=== PATIENT | male | born 1960 | race Caucasian/White ===

== ENCOUNTER 2017-05-08 18:00 | Emergency (ER) | payer SELFPAY ==
[~2017-05-08] VITALS: Ht 182.9 cm; Wt 78.0 kg
[2017-05-08 18:05] VITALS: BP 116/61; PULSE 85; RESP 16; TEMP 98.4; O2SAT 99
[2017-05-08] MEDS ORDERED: SODIUM CHLOR 0.9% 1000 ML INJ 1,000 ML IV SCH (18:42)
[2017-05-08] MEDS ORDERED: SODIUM CHLORIDE 0.9% FLUSH 10 ML FLUSH IV FLUSH PRN (18:45)
[2017-05-08 19:10] VITALS: BP 109/77; PULSE 75; RESP 14; O2SAT 99
--- NOTE | 2017-05-08 19:16 | PD ---
HPI Chief Complaint: Skin Problem Time Seen by Provider: 18:35 Travel History International Travel<30 days: No Contact w/Intl Traveler<30days: No Traveled to known affect area: No History of Present Illness HPI Patient is a 56-year-old alcoholic, presents to emergency room complaints of "purple toes" and pain for the past 1.5 years. Reports that he noticed that his toes on his right foot appeared black and purple. Reports that "i think it' s getting worse." Reports that he has a friend who lost some toes and "i just don't want that to happen to me." Reports that digits #2 on his right foot appear more "purple" than the other toes. He does have an ulceration to that digit. Patient reports that he has not followed-up with a primary care doctor for this as he doesn't have one. Patient denies any medical history, reports no history of hypertension or diabetes or coronary artery disease. Patient reports that he is an alcoholic, denies drug abuse. Last drink was 2 hours prior to arrival to emergency room. [facility] Past Medical History Medical History: Denies Significant Hx Past Surgical History Surgical History: No Previous Surgery Social History Alcohol Use: Yes Tobacco Use: Yes Substance Use: No Allergies-Medications (Allergen,Severity, Reaction): Coded Allergies: No Known Allergies (Unverified , 05/08/17) Reported Meds & Prescriptions Reported Meds & Active Scripts Active Bactroban Topical (Mupirocin) 22 Gm Cream 1 Applic TOPICAL BID Review of Systems General / Constitutional: No: Fever Eyes: No: Visual changes HENT: No: Headaches Cardiovascular: No: Chest Pain or Discomfort Respiratory: No: Shortness of Breath Gastrointestinal: No: Abdominal Pain Genitourinary: No: Dysuria Musculoskeletal: Positive: Pain (pain to right toes) Skin: No Rash Neurologic: No: Weakness Psychiatric: No: Depression Endocrine: No: Polydipsia Hematologic/Lymphatic: No: Easy Bruising Physical Exam Narrative GENERAL: NAD, nontoxic SKIN: Focused skin assessment warm/dry. HEAD: Atraumatic. Normocephalic. EYES: Pupils equal and round. No scleral icterus. No injection or drainage. ENT: No nasal bleeding or discharge. Mucous membranes pink and moist. NECK: Trachea midline. No JVD. CARDIOVASCULAR: Regular rate and rhythm. No murmur appreciated. RESPIRATORY: No accessory muscle use. Clear to auscultation. Breath sounds equal bilaterally. GASTROINTESTINAL: Abdomen soft, non-tender, nondistended. Hepatic and splenic margins not palpable. MUSCULOSKELETAL: No obvious deformities. No clubbing. No cyanosis. No edema Right foot: patient with healing ulceration to digit #2, pulses intact, neurovascularly intact, good rom to all digits, good capillary refill, patient does not appear to have necrotic toes Left foot: Patient with no obvious fractures, patient with good range of motion to all digits as well as ankle, good capillary refill, pulses intact, neurovascularly intact,no evidence of purple or black toes, no signs of necrotic digits NEUROLOGICAL: Awake and alert. No obvious cranial nerve deficits. Motor grossly within normal limits. Normal speech. PSYCHIATRIC: Appropriate mood and affect; insight and judgment normal. Data Data Last Documented VS Vital Signs Date Time Temp Pulse Resp B/P Pulse Ox O2 Delivery O2 Flow Rate FiO2 05/08/17 21:50 71 14 115/85 97 Room Air 05/08/17 18:05 98.4 Orders Complete Blood Count With Diff (05/08/17 18:42) Comprehensive Metabolic Panel (05/08/17 18:42) Prothrombin Time / Inr (Pt) (05/08/17 18:42) Act Partial Throm Time (Ptt) (05/08/17 18:42) Iv Access Insert/Monitor (05/08/17 18:42) Ecg Monitoring (05/08/17 18:42) Oximetry (05/08/17 18:42) Sodium Chlor 0.9% 1000 Ml Inj (Ns 1000 M (05/08/17 18:42) Sodium Chloride 0.9% Flush (Ns Flush) (05/08/17 18:45) Cta Runoff W Iv Contrast W 3d (05/08/17 ) Drug Screen, Random Urine (05/08/17 18:42) Alcohol (Ethanol) (05/08/17 18:42) Foot, Complete ([id number]) (05/08/17 ) Foot, Complete ([id number]) (05/08/17 ) Mandatory Outpatient Referral (05/08/17 20:45) Mandatory Outpatient Referral (05/08/17 20:45) Iohexol 350 Inj (Omnipaque 350 Inj) (05/08/17 21:07) Labs Laboratory Tests Test 05/08/17 05/08/17 19:20 21:20 White Blood Count 5.9 TH/MM3 Red Blood Count 3.84 MIL/MM3 Hemoglobin 11.8 GM/DL Hematocrit 34.8 % Mean Corpuscular Volume 90.9 FL Mean Corpuscular Hemoglobin 30.6 PG Mean Corpuscular Hemoglobin 33.7 % Concent Red Cell Distribution Width 16.1 % Platelet Count 306 TH/MM3 Mean Platelet Volume 7.0 FL Neutrophils (%) (Auto) 51.9 % Lymphocytes (%) (Auto) 33.2 % Monocytes (%) (Auto) 10.3 % Eosinophils (%) (Auto) 4.0 % Basophils (%) (Auto) 0.6 % Neutrophils # (Auto) 3.1 TH/MM3 Lymphocytes # (Auto) 2.0 TH/MM3 Monocytes # (Auto) 0.6 TH/MM3 Eosinophils # (Auto) 0.2 TH/MM3 Basophils # (Auto) 0.0 TH/MM3 CBC Comment DIFF FINAL Differential Comment Prothrombin Time 10.7 SEC Prothromb Time International 1.0 RATIO Ratio Activated Partial 29.2 SEC Thromboplast Time Sodium Level 144 MEQ/L Potassium Level 3.9 MEQ/L Chloride Level 110 MEQ/L Carbon Dioxide Level 28.1 MEQ/L Anion Gap 6 MEQ/L Blood Urea Nitrogen 6 MG/DL Creatinine 0.84 MG/DL Estimat Glomerular Filtration 95 ML/MIN Rate Random Glucose 84 MG/DL Calcium Level 8.3 MG/DL Total Bilirubin 0.2 MG/DL Aspartate Amino Transf 60 U/L (AST/SGOT) Alanine Aminotransferase 51 U/L (ALT/SGPT) Alkaline Phosphatase 146 U/L Total Protein 8.0 GM/DL Albumin 3.4 GM/DL Ethyl Alcohol Level 289 MG/DL Urine Opiates Screen NEG Urine Barbiturates Screen NEG Urine Amphetamines Screen NEG Urine Benzodiazepines Screen POS Urine Cocaine Screen NEG Urine Cannabinoids Screen NEG MDM Medical Decision Making Medical Screen Exam Complete: Yes Emergency Medical Condition: Yes Interpretation(s) Vital Signs Date Time Temp Pulse Resp B/P Pulse Ox O2 Delivery O2 Flow Rate FiO2 05/08/17 18:05 98.4 85 16 116/61 99 Differential Diagnosis Differential includes alcoholism, cellulitis, arterial insufficiency, osteomyelitis Narrative Course 56-year-old male who presents to emergency room for evaluation of possible purple and black toes. Patient reports that his right toes have appeared purple and black for the past 1.5 years, reports concerns as he does not want to lose any digits. He does not have any medical problems and has not seen a physician in years. On evaluation, patient is intoxicated. He does have good pulses to bilateral lower extremities, his does not appear purple or black, they appear to have good capillary refills with no obvious signs of necrosis. Plan to obtain basic labs and order CTA Lower extremities to evaluate for arterial insufficiency. Ultimately, patient understands need to follow-up with his primary care doctor X-ray of the right foot shows a possible osteolytic lesion in the medial tarsus Navicular - i gave patient a copy of his xray report and discussed concerns as he will need this evaluated as an outpatient. Mandatory referral to podiatry as well as general medicine ordered Laboratory Tests Test 05/08/17 19:20 White Blood Count 5.9 TH/MM3 (4.0-11.0) Red Blood Count 3.84 MIL/MM3 (4.50-5.90) Hemoglobin 11.8 GM/DL (13.0-17.0) Hematocrit 34.8 % (39.0-51.0) Mean Corpuscular Volume 90.9 FL (80.0-100.0) Mean Corpuscular Hemoglobin 30.6 PG (27.0-34.0) Mean Corpuscular Hemoglobin 33.7 % Concent (32.0-36.0) Red Cell Distribution Width 16.1 % (11.6-17.2) Platelet Count 306 TH/MM3 (150-450) Mean Platelet Volume 7.0 FL (7.0-11.0) Neutrophils (%) (Auto) 51.9 % (16.0-70.0) Lymphocytes (%) (Auto) 33.2 % (9.0-44.0) Monocytes (%) (Auto) 10.3 % (0.0-8.0) Eosinophils (%) (Auto) 4.0 % (0.0-4.0) Basophils (%) (Auto) 0.6 % (0.0-2.0) Neutrophils # (Auto) 3.1 TH/MM3 (1.8-7.7) Lymphocytes # (Auto) 2.0 TH/MM3 (1.0-4.8) Monocytes # (Auto) 0.6 TH/MM3 (0-0.9) Eosinophils # (Auto) 0.2 TH/MM3 (0-0.4) Basophils # (Auto) 0.0 TH/MM3 (0-0.2) CBC Comment DIFF FINAL Differential Comment Prothrombin Time 10.7 SEC (9.8-11.6) Prothromb Time International 1.0 RATIO Ratio Activated Partial 29.2 SEC Thromboplast Time (24.3-30.1) Sodium Level 144 MEQ/L (136-145) Potassium Level 3.9 MEQ/L (3.5-5.1) Chloride Level 110 MEQ/L (98-107) Carbon Dioxide Level 28.1 MEQ/L (21.0-32.0) Anion Gap 6 MEQ/L (5-15) Blood Urea Nitrogen 6 MG/DL (7-18) Creatinine 0.84 MG/DL (0.60-1.30) Estimat Glomerular Filtration 95 ML/MIN (>89) Rate Random Glucose 84 MG/DL (74-106) Calcium Level 8.3 MG/DL (8.5-10.1) Total Bilirubin 0.2 MG/DL (0.2-1.0) Aspartate Amino Transf 60 U/L (15-37) (AST/SGOT) Alanine Aminotransferase 51 U/L (12-78) (ALT/SGPT) Alkaline Phosphatase 146 U/L (45-117) Total Protein 8.0 GM/DL (6.4-8.2) Albumin 3.4 GM/DL (3.4-5.0) Ethyl Alcohol Level 289 MG/DL (0-5) Last Impressions Foot X-Ray 05/08/17 0000 Signed Impressions: Service Date/Time: Monday, May 08, 2017 18:50 - CONCLUSION: 1. No evidence of recent bone injury. 2. Possible osteolytic lesion in the medial tarsus navicular. Recommend clinical correlation for possible history of cancer. Armen Youngblood MD Foot X-Ray 05/08/17 0000 Signed Impressions: Service Date/Time: Monday, May 08, 2017 18:53 - CONCLUSION: Negative exam. Armen Youngblood MD Last Impressions Foot X-Ray 05/08/17 0000 Signed Impressions: Service Date/Time: Monday, May 08, 2017 18:50 - CONCLUSION: 1. No evidence of recent bone injury. 2. Possible osteolytic lesion in the medial tarsus navicular. Recommend clinical correlation for possible history of cancer. Armen Youngblood MD Foot X-Ray 05/08/17 0000 Signed Impressions: Service Date/Time: Monday, May 08, 2017 18:53 - CONCLUSION: Negative exam. Armen Youngblood MD Aorta w/Runoff CTA 05/08/17 0000 Signed Impressions: Service Date/Time: Monday, May 08, 2017 20:43 - CONCLUSION: Normal CTA runoff. Armen Youngblood MD CTA normal. Patient with toe ulceration with no signs of arterial or vascular compromise. Plan to start patient on Bactroban ointment, patient will need to follow up with his primary care doctor as well as podiatry as there is concerns for possible osteolytic lesion to his medial tarsus navicular bone. He will return to ER if symptoms worsen or progress Diagnosis Primary Impression: Osteolytic lesion Additional Impressions: Alcohol intoxication Qualified Code: F10.920 - Alcohol intoxication, uncomplicated Anemia Qualified Code: D64.9 - Anemia, unspecified type Toe ulcer Qualified Code: L97.519 - Toe ulcer, right, with unspecified severity Patient Instructions: General Instructions Additional Instructions: Please provide patient with a copy of his lab work and studies at discharge Your xray of your right foot showed a possible osteolytic lesion in the medial tarsus navicular bone. This is concerning for possible cancerous versus infection lesion and it will need workup by your primary care doctor immediately. Please bring a copy of your studies to your doctor's office. A mandatory referral was placed for follow up with podiatry as well as for a primary care doctor. Return to ER as needed Please drink responsibly Scripts Mupirocin Topical (Bactroban Topical)22 Gm Cream1 Applic TOPICAL BID #1 TUBE Ref 0 Prov:Cait Peguero DO 05/08/17 Disposition: 01 DISCHARGE HOME Condition: Stable Cait Peguero DO May 08, 2017 19:16
[2017-05-08 19:34] LABS: AUTOMATED NEUTROPHIL # 3.1 TH/MM3 (1.8-7.7); BASOPHIL % 0.6 % (0.0-2.0); EOSINOPHIL # 0.2 TH/MM3 (0-0.4); HEMATOCRIT 34.8 % (39.0-51.0); HEMO FLAGS DIFF FINAL; LYMPH % 33.2 % (9.0-44.0); MEAN CELL VOLUME 90.9 FL (80.0-100.0); MEAN CORPUSCULAR HEMOGLOBIN 30.6 PG (27.0-34.0); MEAN CORPUSCULAR HGB CONC 33.7 % (32.0-36.0); MONO % 10.3 % (0.0-8.0); NEUT % 51.9 % (16.0-70.0); PLATELET COUNT 306 TH/MM3 (150-450); RED BLOOD COUNT 3.84 MIL/MM3 (4.50-5.90); RED CELL DISTRIBUTION WIDTH 16.1 % (11.6-17.2); WHITE BLOOD COUNT 5.9 TH/MM3 (4.0-11.0)
[2017-05-08 19:46] LABS: CHLORIDE 110 MEQ/L (98-107); POTASSIUM 3.9 MEQ/L (3.5-5.1); SODIUM (NA) 144 MEQ/L (136-145)
[2017-05-08 19:49] LABS: ANION GAP 6 MEQ/L (5-15); BICARBONATE 28.1 MEQ/L (21.0-32.0)
[2017-05-08 19:50] LABS: BLOOD UREA NITROGEN 6 MG/DL (7-18)
[2017-05-08 19:51] LABS: APTT (PATIENT) 29.2 SEC (24.3-30.1); PROTHROMBIN TIME - PATIENT 10.7 SEC (9.8-11.6)
[2017-05-08 19:52] LABS: ALT (GPT) 51 U/L (12-78); AST (GOT) 60 U/L (15-37); GLOMERULAR FILTRATION RATE 95 ML/MIN (>89)
[2017-05-08 19:54] LABS: TOTAL BILIRUBIN ADULT 0.2 MG/DL (0.2-1.0)
[2017-05-08 19:55] LABS: ALKALINE PHOSPHATASE 146 U/L (45-117)
--- NOTE | 2017-05-08 19:55 | RADRPT ---
EXAM DATE/TIME: 05/08/2017 18:50 [facility] COMPARISON: FOOT LEFT COMPLETE ([id number]), May 08, 2017, 18:53. INDICATIONS : Right foot pain from unknown injury. MEDICAL HISTORY : None. SURGICAL HISTORY : None. ENCOUNTER: Initial ACUITY: 1 month PAIN SCORE: 10/10 LOCATION: Right foot. FINDINGS: Three view examination of the right foot demonstrates no soft tissue swelling, dislocation, or fractu re. The tarsal bones appear intact. The interphalangeal and metatarsophalangeal joints are intact. The calcaneus is intact. There is a 9 mm lytic area in the medial tarsus navicular which is of unc ertain significance. CONCLUSION: 1. No evidence of recent bone injury. 2. Possible osteolytic lesion in the medial tarsus navicular. Recommend clinical correlation for pos sible history of cancer. Armen Youngblood MD on May 08, 2017 at 19:52 Board Certified Radiologist. This report was verified electronically.
--- NOTE | 2017-05-08 19:56 | RADRPT ---
EXAM DATE/TIME: 05/08/2017 18:53 [facility] COMPARISON: No previous studies available for comparison. INDICATIONS : Left foot pain from unknown injury. MEDICAL HISTORY : None. SURGICAL HISTORY : None. ENCOUNTER: Initial ACUITY: 1 month PAIN SCORE: 10/10 LOCATION: Left foot FINDINGS: Three view examination of the left foot demonstrates no soft tissue swelling, dislocation, or fractur e. The tarsal bones appear intact. The interphalangeal and metatarsophalangeal joints are intact. The calcaneus is intact. Bony mineralization is normal. CONCLUSION: Negative exam. Armen Youngblood MD on May 08, 2017 at 19:54 Board Certified Radiologist. This report was verified electronically.
[2017-05-08 20:10] VITALS: BP 93/71; PULSE 74; RESP 14; O2SAT 97
[2017-05-08] MEDS ORDERED: IOHEXOL 350 MG/ML 10 ML VIAL (for RAD DIAG) IV ONE (21:07)
[2017-05-08] MEDS ORDERED: MUPI2%T TOPICAL (21:11)
[2017-05-08 21:50] VITALS: BP 115/85; PULSE 71; RESP 14; O2SAT 97
[2017-05-08 22:08] LABS: AMPHETAMINE, URINE NEG (NEG); BARBITURATES, URINE NEG (NEG); COCAINE, URINE NEG (NEG)
--- NOTE | 2017-05-08 22:15 | RADRPT ---
EXAM DATE/TIME: 05/08/2017 20:43 [facility] COMPARISON: No previous studies available for comparison. INDICATIONS : Discoloration of lower extremity digits. IV CONTRAST: 100 cc Omnipaque 350 (iohexol) IV RADIATION DOSE: 11.07 CTDIvol (mGy) MEDICAL HISTORY : None SURGICAL HISTORY : None. ENCOUNTER: Initial ACUITY: >1 yr PAIN SCALE: 10/10 LOCATION: Bilateral lower digits. TECHNIQUE: Volumetric scanning was performed using a multi-row detector CT scanner. The data was post processed with a variety of visualization algorithms including full volume maximum intensity projection, multi -planar sliding thin slab reformation, curved planar reformation, and surface rendering techniques. Using automated exposure control and adjustment of the mA and/or kV according to patient size, radiat ion dose was kept as low as reasonably achievable to obtain optimal diagnostic quality images. DICO M format image data is available electronically for review and comparison. FINDINGS: ABDOMINAL AORTA: The lumen is smooth without significant narrowing or aneurysmal dilation. The proximal celiac and metz perior mesenteric arteries are patent and normal in diameter. There there are 2 renal arteries on th e left side and one on the right without evidence of ostial stenosis. BIFURCATION: Normal. RIGHT PELVIS: The right common iliac, internal iliac, and external iliac vessels are patent without luminal irregul arity. LEFT PELVIS: The left common iliac, internal iliac, and external iliac vessels are patent and without luminal irre gularity. RIGHT THIGH: The superficial femoral and profunda vessels are patent without luminal irregularity. LEFT THIGH: The superficial femoral and profunda vessels are patent without luminal irregularity. RIGHT KNEE: The distal femoral and popliteal arteries are patent without luminal irregularity. LEFT KNEE: The distal femoral and popliteal arteries are patent without luminal irregularity. RIGHT LEG: The trifurcation is intact. LEFT LEG: The trifurcation is intact. CONCLUSION: Normal CTA runoff. Armen Youngblood MD on May 08, 2017 at 22:10 Board Certified Radiologist. This report was verified electronically.
[2017-05-08 23:00] VITALS: BP 125/87; PULSE 72; RESP 14; O2SAT 96
[2017-05-09 01:25] VITALS: BP 110/75; PULSE 80; RESP 14; O2SAT 98
[2017-05-09 05:19] VITALS: BP 112/75; PULSE 74; RESP 18; O2SAT 96
== END 2017-05-09 05:28 | disposition home or self-care (01) ==
LOC: PHED 18:00
DX: M89.571 Osteolysis, right ankle and foot (principal); F10.229 Alcohol dependence with intoxication, unspecified; D64.9 Anemia, unspecified; L97.519 Non-pressure chronic ulcer of other part of right foot with unspecified severity; Y90.8 Blood alcohol level of 240 mg/100 ml or more; Z72.0 Tobacco use
CPT/HCPCS: 73630; 75635; 80053; 80307; 85025; 85610; 85730; 96360; 99285; J7030; Q9967

== ENCOUNTER 2017-05-11 21:32 | Emergency (ER) | payer SELFPAY ==
[~2017-05-11 21:32] MED LIST: MUPI2%T TOPICAL
[2017-05-11 21:40] VITALS: BP 107/63; PULSE 99; RESP 16; TEMP 98.8; O2SAT 94
--- NOTE | 2017-05-12 00:13 | PD ---
HPI Chief Complaint: Pain: Acute or Chronic Time Seen by Provider: 00:07 Travel History International Travel<30 days: No Contact w/Intl Traveler<30days: No Traveled to known affect area: No History of Present Illness HPI Patient is a 56-year-old alcoholic male presents emergency Department initially complaining of right foot pain at triage, though when I evaluate him he complains only of alcohol intoxication. Per chart review patient was seen in our [facility] emergency department recently for right sided foot pain and had evidence of osteolytic lesion seen on x-ray. He was given outpatient mandatory referral for podiatry, he has yet to follow up. Patient denies any foot pain at this time. He states that he's been drinking too much, and would like detox. He has been able to ambulate independently in the emergency department. He denies any other complaints. [facility] Social History Alcohol Use: Yes Tobacco Use: Yes Substance Use: No Allergies-Medications (Allergen,Severity, Reaction): Coded Allergies: No Known Allergies (Unverified , 05/08/17) Reported Meds & Prescriptions Reported Meds & Active Scripts Active Bactroban Topical (Mupirocin) 22 Gm Cream 1 Applic TOPICAL BID Review of Systems ROS Limitations: Intoxication, Poor Historian Physical Exam Exam Limitations: Intoxication, Poor Historian Narrative GENERAL: Disheveled adult male in no acute distress SKIN: Focused skin assessment warm/dry. HEAD: Normocephalic. EYES: No scleral icterus. No injection or drainage. ENT: Mucous membranes pink and moist. NECK: Supple CARDIOVASCULAR: Regular rate and rhythm. RESPIRATORY: No accessory muscle use. MUSCULOSKELETAL: Moves all extremities normally. A 1-2+ edema in the bilateral lower extremities. Right foot with ulceration on the second toe, good capillary refill, normal range of motion. Patient does have tenderness along the first and second metatarsal raise. The left foot is unremarkable without evidence of ulcerations, good capillary refill and distal pulses are present. NEUROLOGICAL: Sleeping. Patient is cantankerous when aroused but awake and alert. Moves all extremities normally. Speech is slightly slurred. PSYCHIATRIC: insight and judgment poor Data Data Last Documented VS Vital Signs Date Time Temp Pulse Resp B/P Pulse Ox O2 Delivery O2 Flow Rate FiO2 05/11/17 21:40 98.8 99 16 107/63 94 Room Air MDM Medical Decision Making Medical Screen Exam Complete: Yes Emergency Medical Condition: Yes Medical Record Reviewed: Yes Differential Diagnosis 56-year-old alcoholic male here with complaint of right foot pain and intoxication. Differential includes malingering, alcohol intoxication, right foot fracture, osteolytic lesion Narrative Course Patient has already had imaging of the foot showing osteolytic lesion and has mandatory referral for podiatry. He was recently referred to podiatry by myself today. Unfortunately we do not have inpatient detox, and patient does not have any evidence of alcohol withdrawal. Instead he appears clinically intoxicated. He was able to ambulate independently in her emergency department , and will be discharged to home. Diagnosis Primary Impression: Alcohol intoxication Qualified Code: F10.920 - Alcoholic intoxication without complication Additional Impressions: Right foot pain Osteolytic lesion Referrals: Fabiana Sánchez DPM call for appointment Fine Arts Chair call for appointment Vero Wynn call for appointment Additional Instructions: Seek outpatient management for your alcoholism. Unfortunately we do not have inpatient detox programs. I recommended follow-up with [facility]. Oh up with cost recorder for outpatient workup of osteolytic lesion in the right foot. This is likely what is causing your pain. Med/Other Pt SpecificInfo: No Change to Meds Disposition: 01 DISCHARGE HOME Condition: Stable Lana Yee MD May 12, 2017 00:13
== END 2017-05-12 00:36 | disposition home or self-care (01) ==
LOC: NEPE 21:32 → NEDAMB 05-12 00:36
DX: F10.920 Alcohol use, unspecified with intoxication, uncomplicated (principal); M79.671 Pain in right foot; M89.571 Osteolysis, right ankle and foot
CPT/HCPCS: 99282

== ENCOUNTER 2017-05-13 21:23 | Emergency (ER) | payer SELFPAY ==
[~2017-05-13] VITALS: Ht 182.9 cm; Wt 85.0 kg
[2017-05-13 21:47] VITALS: BP 120/71; PULSE 86; RESP 20; TEMP 98.2; O2SAT 99
--- NOTE | 2017-05-14 02:05 | PD ---
HPI Chief Complaint: Alcohol/Drug Intoxication Time Seen by Provider: 02:01 Travel History International Travel<30 days: No Contact w/Intl Traveler<30days: No Traveled to known affect area: No History of Present Illness HPI 56-year-old white male alcoholic presents again intoxicated under [place] act. The patient is heavily intoxicated. Significant history is unobtainable at this time. Review of the medical record indicates recent evaluation the ER for the same. There is no history of suicidal or homicidal ideation. No evidence of trauma. [facility] Past Medical History Narrative Medical History of alcoholism, and a right foot osteolytic lesion Tetanus Vaccination: Unknown Past Surgical History Surgical History: Unable to Obtain Social History Alcohol Use: Yes Tobacco Use: Yes Substance Use: No Allergies-Medications (Allergen,Severity, Reaction): Coded Allergies: No Known Allergies (Unverified , 05/13/17) Reported Meds & Prescriptions Reported Meds & Active Scripts Active Bactroban Topical (Mupirocin) 22 Gm Cream 1 Applic TOPICAL BID Review of Systems ROS Limitations: Intoxication Physical Exam Narrative GENERAL: Well-nourished, well-developed patient. Patient appears intoxicated. SKIN: Warm and dry. HEAD: Normocephalic and atraumatic. EYES: No scleral icterus. No injection or drainage. ENT: No nasal drainage noted. Mucous membranes pink. Airway patent. NECK: Supple, trachea midline. Moves head freely without obvious discomfort. CARDIOVASCULAR: Regular rate and rhythm without murmurs, gallops, or rubs. RESPIRATORY: Breath sounds equal bilaterally. No accessory muscle use. GASTROINTESTINAL: Abdomen soft, non-tender, nondistended. EXTREMITIES: No cyanosis +1 pedal edema. Right foot with ulceration on the second toe BACK: Nontender without obvious deformity. No CVA tenderness. NEURO: Patient is alert and oriented. no sensorimotor deficits. Nonfocal. Slurred speech. PSYCH: No delusions. No auditory or visual hallucinations. Data Data Last Documented VS Vital Signs Date Time Temp Pulse Resp B/P Pulse Ox O2 Delivery O2 Flow Rate FiO2 05/14/17 02:25 98.6 70 16 122/82 100 Room Air MDM Medical Decision Making Medical Screen Exam Complete: Yes Emergency Medical Condition: Yes Medical Record Reviewed: Yes Differential Diagnosis Differential diagnoses: Alcohol intoxication, substance abuse, electrolyte abnormality, malingering Narrative Course The patient is intoxicated. He will be allowed to sleep it off here in the ER. Once the patient exhibits sobriety has [place] act will be lifted and the patient will be allowed to leave. This is alcohol intoxication, act Diagnosis Primary Impression: Alcohol intoxication Qualified Code: F10.920 - Alcoholic intoxication without complication Additional Impression: ACT Patient Instructions: General Instructions Additional Instructions: Rest. Increase fluids. Avoid alcohol. Avoid illegal substances. Follow-up with [facility] for detox. Do not operate a car or any heavy machinery under the influence of alcohol or drugs. Follow-up with a medical doctor this week. Return to the ER for emergencies Med/Other Pt SpecificInfo: No Meds Exist/No RX given, Wound Care Disposition: 01 DISCHARGE HOME Condition: Stable Gus Vazquez May 14, 2017 02:05
[2017-05-14 02:25] VITALS: BP 122/82; PULSE 70; RESP 16; TEMP 98.6; O2SAT 100
[2017-05-14] MEDS ORDERED: BACT800T5 PO (05:46)
== END 2017-05-14 06:15 | disposition home or self-care (01) ==
LOC: NEDAMB 21:23
DX: Z02.89 Encounter for other administrative examinations (principal); F10.920 Alcohol use, unspecified with intoxication, uncomplicated; F17.290 Nicotine dependence, other tobacco product, uncomplicated
CPT/HCPCS: 99283

== ENCOUNTER 2017-06-10 03:12 | Emergency (ER) | payer SELFPAY ==
[~2017-06-10] VITALS: Ht 182.9 cm; Wt 82.0 kg
[~2017-06-10 03:12] MED LIST changes: +BACT800T5 PO
[2017-06-10 03:22] VITALS: BP 110/57; PULSE 88; RESP 16; TEMP 97.5; O2SAT 96
--- NOTE | 2017-06-10 04:12 | RADRPT ---
EXAM DATE/TIME: 06/10/2017 04:01 [facility] COMPARISON: FOOT LEFT COMPLETE ([id number]), May 08, 2017, 18:53. INDICATIONS : Inflammation. MEDICAL HISTORY : None. SURGICAL HISTORY : None. ENCOUNTER: Subsequent ACUITY: 2 months PAIN SCORE: 6/10 LOCATION: Bilateral feet FINDINGS: Three view examination of the left foot demonstrates no soft tissue swelling, dislocation, or fractur e. The tarsal bones appear intact. The interphalangeal and metatarsophalangeal joints are intact. The calcaneus is intact. Bony mineralization is normal. 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 CONCLUSION: No acute bony abnormality demonstrated of the left foot. Orion Barrios MD on June 10, 2017 at 4:09 Board Certified Radiologist. This report was verified electronically.
--- NOTE | 2017-06-10 04:13 | RADRPT ---
EXAM DATE/TIME: 06/10/2017 04:01 [facility] COMPARISON: FOOT RIGHT COMPLETE ([id number]), May 08, 2017, 18:50. INDICATIONS : Inflammation. MEDICAL HISTORY : None. SURGICAL HISTORY : None. ENCOUNTER: Subsequent ACUITY: 2 months PAIN SCORE: 6/10 LOCATION: Bilateral feet FINDINGS: Three view examination of the right foot demonstrates no soft tissue swelling, dislocation, or fractu re. The tarsal bones appear intact. The interphalangeal and metatarsophalangeal joints are intact. The calcaneus is intact. Bony mineralization is normal. Tibial sesamoid is bipartite. There is a type I accessory navicular. No radiopaque foreign body. CONCLUSION: No acute radiographic abnormality of the right foot. Orion Barrios MD on June 10, 2017 at 4:11 Board Certified Radiologist. This report was verified electronically.
--- NOTE | 2017-06-10 04:14 | PD ---
HPI Chief Complaint: Skin Problem Time Seen by Provider: 03:33 Travel History International Travel<30 days: No Contact w/Intl Traveler<30days: No Traveled to known affect area: No History of Present Illness HPI The patient is a 57 year old male who presents to the [facility] emergency department with a history of pain in bilateral feet that he reports awakening with this morning. He reports that he recently had a problem with that she works full was falling apart. He reports that he was also wearing a pair socks for greater than a week. When he tried to take his socks off they seem to be stuck to his feet. He denies any trauma to his feet. He reports that when he took his shoes off today he noticed that his toes were red and swollen. The patient denies having any known fevers. The patient reports that he has had numbness to the tops of his feet for the last year and a half, however recently he has noticed that the burning and numbness goes up his legs to his calves. He reports that he hasn't seen for this in the past, however he is unsure of the specific diagnosis. The patient reports that he does drink alcohol daily. He usually drinks at least a sixpack of beer per day. He also reports that he smokes one and a half packs of cigarettes daily. On review of systems otherwise , he denies any worsening cough or congestion, neck pain, chest pain, shortness of breath, abdominal pain, vomiting, diarrhea, urinary symptoms, or other neurologic symptoms. PFSH Past Medical History Narrative Medical The patient's past medical history is significant for alcohol abuse, tobacco abuse, history of an osteolytic lesion of the right foot. Diminished Hearing: No Tetanus Vaccination: Unknown ?: Not Past Surgical History Narrative Surgical The patient's past surgical history is significant for a hernia repair. Abdominal Surgery: Yes (Hernia repair) Social History Alcohol Use: Yes (6 back of beer daily) Tobacco Use: Yes (1-1/2 packs per day) Substance Use: No Allergies-Medications (Allergen,Severity, Reaction): Coded Allergies: No Known Allergies (Unverified , 05/13/17) Reported Meds & Prescriptions Reported Meds & Active Scripts Active Ciclopirox Topical 0.77% Gel 1 Applic TOPICAL BID 30 Days Keflex (Cephalexin) 500 Mg Cap 500 Mg PO Q6H 10 Days Bactrim DS (Sulfamethoxazole-Trimethoprim) 800-160 Mg Tab 1 Tab PO BID Review of Systems Except as stated in HPI: all other systems reviewed are Neg General / Constitutional: No: Fever Eyes: No: Visual changes HENT: No: Headaches Cardiovascular: No: Chest Pain or Discomfort Respiratory: No: Shortness of Breath Gastrointestinal: No: Abdominal Pain Genitourinary: No: Dysuria Musculoskeletal: Positive: Myalgias, Arthralgias, Edema, Pain Skin: No Rash Neurologic: Positive: Paresthesia, No: Weakness, Focal Abnormalities, Change in Mentation, Slurred Speech, Sensory Disturbance Psychiatric: No: Depression Endocrine: No: Polydipsia Hematologic/Lymphatic: No: Easy Bruising Physical Exam Narrative General: The patient is a well-developed well-nourished male, in no acute distress. Head and Neck exam: Head is normocephalic atraumatic. Eyes: EOMI, pupils are equal round and reactive to light. Nose: Midline septum with pink mucous membranes Mouth: Dentition unremarkable. Moist mucus membranes. Posterior oropharynx is not erythematous. No tonsillar hypertrophy. Uvula midline. Airway patent. Neck: No palpable lymphadenopathy. No nuchal rigidity. No thyromegaly. Cardiovascular: Regular rate and rhythm without murmurs, gallops, or rubs. Lungs: Clear to auscultation bilaterally. No wheezes, rhonchi, or rales. Abdomen: Soft, without tenderness to palpation in all 4 quadrants of the abdomen. No guarding, rebound, or rigidity. Normal bowel sounds are audible. No tenderness on palpation of McBurney's point. Extremities: No clubbing, cyanosis, or edema. 2+ pulses in all 4 extremities. No calf tenderness on palpation. The patient has a strong foot odor noted. The patient has maceration to the soles of his feet related to chronic moisture, erythema to the toes with some superficial skin breakdown between the toes. The patient has dirt on his feet. Less than 3 second capillary refill. The patient has discoloration of his toenails. Patient has no necrosis noted of his toes. The patient appears to have dirt underneath his toenails with older appearing subungual hematoma. Back: No costovertebral angle tenderness to palpation. Neurologic Exam: Cranial nerves 2-12 were intact on exam. Strength is 5/5 in all 4 extremities. No sensory deficits noted. Skin Exam: No other rashes noted. Data Data Last Documented VS Vital Signs Date Time Temp Pulse Resp B/P (MAP) Pulse Ox O2 Delivery O2 Flow Rate FiO2 06/10/17 03:22 97.5 88 16 110/57 (74) 96 Orders Orders Complete Blood Count With Diff (06/10/17 03:33) Comprehensive Metabolic Panel (06/10/17 03:33) C-Reactive Protein (Crp) (06/10/17 03:33) Magnesium (Mg) (06/10/17 03:33) Thyroid Stimulating Hormone (06/10/17 03:33) Iv Access Insert/Monitor (06/10/17 03:33) Ecg Monitoring (06/10/17 03:33) Oximetry (06/10/17 03:33) Wound Care (06/10/17 03:33) Foot, Complete ([id number]) (06/10/17 03:33) Foot, Complete (Roy4low) (06/10/17 03:33) Cefazolin 2 Gm Premix (Ancef 2 Gm Premix (06/10/17 04:15) [id number] (Booster) Inj (Boostrix (06/10/17 04:15) Sodium Chlorid 0.9% 500 Ml Inj (Ns 500 M (06/10/17 04:15) Labs Laboratory Tests Test 06/10/17 04:30 White Blood Count 5.6 TH/MM3 Red Blood Count 4.16 MIL/MM3 Hemoglobin 12.8 GM/DL Hematocrit 38.3 % Mean Corpuscular Volume 92.2 FL Mean Corpuscular Hemoglobin 30.8 PG Mean Corpuscular Hemoglobin Concent 33.4 % Red Cell Distribution Width 15.9 % Platelet Count 256 TH/MM3 Mean Platelet Volume 7.2 FL Neutrophils (%) (Auto) 44.8 % Lymphocytes (%) (Auto) 31.4 % Monocytes (%) (Auto) 18.8 % Eosinophils (%) (Auto) 3.9 % Basophils (%) (Auto) 1.1 % Neutrophils # (Auto) 2.5 TH/MM3 Lymphocytes # (Auto) 1.8 TH/MM3 Monocytes # (Auto) 1.1 TH/MM3 Eosinophils # (Auto) 0.2 TH/MM3 Basophils # (Auto) 0.1 TH/MM3 CBC Comment DIFF FINAL Differential Comment Blood Urea Nitrogen 17 MG/DL Creatinine 1.22 MG/DL Random Glucose 87 MG/DL Total Protein 7.8 GM/DL Albumin 3.7 GM/DL Calcium Level 8.6 MG/DL Magnesium Level 2.2 MG/DL Alkaline Phosphatase 107 U/L Aspartate Amino Transf (AST/SGOT) 46 U/L Alanine Aminotransferase (ALT/SGPT) 53 U/L Total Bilirubin 0.5 MG/DL Sodium Level 138 MEQ/L Potassium Level 3.5 MEQ/L Chloride Level 104 MEQ/L Carbon Dioxide Level 24.3 MEQ/L Anion Gap 10 MEQ/L Estimat Glomerular Filtration Rate 62 ML/MIN C-Reactive Protein 0.32 MG/DL Thyroid Stimulating Hormone 3rd Gen 2.810 uIU/ML MDM Medical Decision Making Medical Screen Exam Complete: Yes Emergency Medical Condition: Yes Medical Record Reviewed: Yes Interpretation(s) Last Impressions Foot X-Ray 06/10/17332 Signed Impressions: Service Date/Time: Saturday, June 10, 2017 04:01 - CONCLUSION: No acute radiographic abnormality of the right foot. Orion Barrios MD Foot X-Ray 06/10/17332 Signed Impressions: Service Date/Time: Saturday, June 10, 2017 04:01 - CONCLUSION: No acute bony abnormality demonstrated of the left foot. Orion Barrios MD Differential Diagnosis Cellulitis, versus tinea capitis, versus trench foot. Narrative Course During the course of the patients emergency department visit, the patients history, examination, and differential diagnosis were reviewed with the patient. The patient had IV access obtained and blood work sent for analysis. The patient was placed on a international account representative with oximetry and blood pressure monitoring. From reviewing the electronic medical record, the patient has been seen on May 14 and then again on May 12 related to foot pain. The patient had an extensive workup done on May 08 including a CTA with runoff of the lower extremities. The CTA with runoff was unremarkable. Bilateral foot x- rays revealed a negative examination of the left foot, and on examination of the right foot the patient is noted to have an osteolytic lesion in the medial tarsus navicular, recommend clinical correlation for possible history of cancer according to the reading radiologist note. The patient was given a mandatory referral to podiatry. He denies following up at this point. The patient was initially provided an update his tetanus, normal saline a 500 mL bolus, Ancef 2 g IV. Laboratory studies were remarkable for a white count of 5.6, hemoglobin 12.8, platelets 256 with 18.8 monocytes, CMP is remarkable for GFR 62, AST 46, C- reactive protein 0.32, TSH 2.81 Radiology studies were reviewed and remarkable for x-ray of the left foot shows no acute bony abnormality. X-ray of the right foot reveals no acute radiographic abnormality. No evidence of osteomyelitis. The patient will be discharged home with Keflex and Bactrim. The patient also has an apparent underlying component of tinea pedis, therefore the patient was sent home with a topical antifungal. 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 The patient is resting comfortably and feels better, is alert and in no distress. The patients results and examination findings were discussed with the patient. The repeat examination is unremarkable and benign. The history, exam, diagnostic testing, and current condition do not suggest any significant pathology to warrant further testing, continued ED treatment, admission, or surgical evaluation at this point. The vital signs have been stable. The patient does not have uncontrollable pain, intractable vomiting, or other significant symptoms. The patient's condition is stable and appropriate for discharge. The patient will pursue further outpatient evaluation with a primary care physician or other designated or consulting physician as indicated in the discharge instructions. The patient expressed understanding and was agreeable with this plan. Diagnosis Primary Impression: Bilateral foot pain Additional Impressions: Cellulitis Qualified Codes: L03.039 - Cellulitis of unspecified toe Tinea pedis of both feet Referrals: [facility] Patient Assistance Program Primary Care Physician Patient Instructions: Cellulitis (ED), General Instructions, Tinea Corporis (ED ) Additional Instructions: Apply antifungal ointment 2 year feet twice a day. Keep your feet clean and dry. Take oral antibiotic for the entire course. Follow-up with podiatry as previously recommended. Med/Other Pt SpecificInfo: Prescription(s) given Scripts Ciclopirox Topical (Ciclopirox Topical) 0.77% Gel 1 APPLIC TOPICAL BID for FUNGAL INFECTION for 30 Days, #45 GM 0 Refills Prov: Bobbi Cerrato MD 06/10/17 Cephalexin (Keflex) 500 Mg Cap 500 MG PO Q6H for Infection for 10 Days, CAP 0 Refills Prov: Bobbi Cerrato MD 06/10/17 Sulfamethoxazole-Trimethoprim (Bactrim DS) 800-160 Mg Tab 1 TAB PO BID for Infection, #20 TAB Prov: Bobbi Cerrato MD 06/10/17 Disposition: 01 DISCHARGE HOME Condition: Stable Bobbi Cerrato MD Jun 10, 2017 04:14
[2017-06-10] MEDS ORDERED: ceFAZolin 2 GM PREMIX 50 ML IV ONE (04:15)
[2017-06-10] MEDS ORDERED: SODIUM CHLORID 0.9% 500 ML INJ 500 ML IV ONE (04:15)
[2017-06-10] MEDS: DIPHTH/TETANUS/ACEL PERTUSSIS (BOOSTER) 0.5 ML VIAL/PFS IM ONE ×2 (04:15→04:38)
[2017-06-10 05:13] LABS: AUTOMATED NEUTROPHIL # 2.5 TH/MM3 (1.8-7.7); BASOPHIL # 0.1 TH/MM3 (0-0.2); BASOPHIL % 1.1 % (0.0-2.0); EOSINOPHIL # 0.2 TH/MM3 (0-0.4); EOSINOPHIL % 3.9 % (0.0-4.0); HEMATOCRIT 38.3 % (39.0-51.0); HEMO FLAGS DIFF FINAL; LYMPH % 31.4 % (9.0-44.0); LYMPHOCYTE # 1.8 TH/MM3 (1.0-4.8); MEAN CELL VOLUME 92.2 FL (80.0-100.0); MEAN CORPUSCULAR HEMOGLOBIN 30.8 PG (27.0-34.0); MEAN CORPUSCULAR HGB CONC 33.4 % (32.0-36.0); MONO % 18.8 % (0.0-8.0); NEUT % 44.8 % (16.0-70.0); PLATELET COUNT 256 TH/MM3 (150-450); RED BLOOD COUNT 4.16 MIL/MM3 (4.50-5.90); RED CELL DISTRIBUTION WIDTH 15.9 % (11.6-17.2); WHITE BLOOD COUNT 5.6 TH/MM3 (4.0-11.0)
[2017-06-10 05:35] LABS: ALT (GPT) 53 U/L (12-78); ANION GAP 10 MEQ/L (5-15); AST (GOT) 46 U/L (15-37); BICARBONATE 24.3 MEQ/L (21.0-32.0); BLOOD UREA NITROGEN 17 MG/DL (7-18); CHLORIDE 104 MEQ/L (98-107); GLOMERULAR FILTRATION RATE 62 ML/MIN (>89); MAGNESIUM 2.2 MG/DL (1.5-2.5); POTASSIUM 3.5 MEQ/L (3.5-5.1); SODIUM (NA) 138 MEQ/L (136-145)
[2017-06-10 05:46] LABS: ALKALINE PHOSPHATASE 107 U/L (45-117); TOTAL BILIRUBIN ADULT 0.5 MG/DL (0.2-1.0)
[2017-06-10] MEDS ORDERED: BACT800T5 PO (06:00)
[2017-06-10] MEDS ORDERED: CICL0.773 TOPICAL (06:00)
[2017-06-10] MEDS ORDERED: CEPH-460 PO (06:00)
== END 2017-06-10 07:13 | disposition home or self-care (01) ==
LOC: NEPE 03:12
DX: M79.671 Pain in right foot (principal); M79.672 Pain in left foot; B35.3 Tinea pedis; L03.116 Cellulitis of left lower limb; F17.210 Nicotine dependence, cigarettes, uncomplicated; R20.0 Anesthesia of skin; Z23 Encounter for immunization
CPT/HCPCS: 73630; 80053; 83735; 84443; 85025; 86140; 90471; 96365; 99284; J0690; J7040; 90715

== ENCOUNTER 2017-06-16 19:53 | Emergency (ER) | payer SELFPAY ==
[~2017-06-16] VITALS: Ht 182.9 cm; Wt 75.0 kg
[~2017-06-16 19:53] MED LIST changes: +CEPH-460 PO; +CICL0.773 TOPICAL; -MUPI2%T TOPICAL
[2017-06-16 19:58] VITALS: BP 129/106; PULSE 85; RESP 16; TEMP 97.4; O2SAT 100
[2017-06-16] MEDS ORDERED: SODIUM CHLORIDE 0.9% FLUSH 10 ML FLUSH IVF PRN (20:15)
[2017-06-16] MEDS ORDERED: ASPIRIN 325 MG TAB PO ONE (20:15)
--- NOTE | 2017-06-16 20:21 | PD ---
HPI . Chest pain Chief Complaint: Chest Pain Time Seen by Provider: 19:59 Travel History International Travel<30 days: No Contact w/Intl Traveler<30days: No Traveled to known affect area: No History of Present Illness HPI This patient presents to us via [facility] with the chief complaint of chest pain. Onset was just prior to arrival. He states that he was walking home from a bar his chest pain started. He describes the chest pain as an elephant sitting on his chest. He denies any associated symptoms. He states that the symptoms have spontaneously improved. EMS reports that they did not give him any sort of treatment en route such as oxygen, aspirin or nitroglycerin. Patient reports no modifying factors. He states that his pain is severe. PFSH Past Medical History Diminished Hearing: No Past Surgical History Abdominal Surgery: Yes (Hernia repair) Social History Alcohol Use: Yes (6 back of beer daily) Tobacco Use: Yes (1-1/2 packs per day) Substance Use: No Allergies-Medications (Allergen,Severity, Reaction): Coded Allergies: No Known Allergies (Unverified , 06/16/17) Reported Meds & Prescriptions Reported Meds & Active Scripts Active Review of Systems Except as stated in HPI: all other systems reviewed are Neg Cardiovascular: Positive: Chest Pain or Discomfort Respiratory: No: Shortness of Breath Gastrointestinal: No: Nausea, Vomiting Psychiatric: Positive: Substance Abuse (he states that he has no idea how much he drinks every day.) Physical Exam Narrative GENERAL: The patient is pleasantly intoxicated. He is in no acute distress. SKIN: warm/dry. HEAD: Normocephalic. EYES: Pupils equal and round. No scleral icterus. No injection or drainage. ENT: No nasal bleeding or discharge. Mucous membranes pink and moist. NECK: Trachea midline. Full range of motion without pain.. CARDIOVASCULAR: Regular rate and rhythm. Heart sounds are normal. RESPIRATORY: No accessory muscle use. Clear to auscultation. Breath sounds equal bilaterally. GASTROINTESTINAL: Abdomen soft. Nontender. Bowel sounds present. Nondistended. MUSCULOSKELETAL: No obvious deformities. NEUROLOGICAL: Awake and alert. No obvious cranial nerve deficits. Motor grossly within normal limits. Normal speech. PSYCHIATRIC: Appropriate mood and affect; insight and judgment normal. Data Data Last Documented VS Vital Signs Date Time Temp Pulse Resp B/P (MAP) Pulse Ox O2 Delivery O2 Flow Rate FiO2 06/16/17 19:58 97.4 85 16 129/106 (114) 100 Orders Orders Electrocardiogram (06/16/17 20:) Basic Metabolic Panel (Bmp) (06/16/17 20:) Ckmb (Isoenzyme) Profile (06/16/17 20:) Complete Blood Count With Diff (06/16/17 20:) Magnesium (Mg) (06/16/17 20:) Prothrombin Time / Inr (Pt) (06/16/17 20:) Act Partial Throm Time (Ptt) (06/16/17 20:) Troponin I (06/16/17:) Chest, Single Ap (06/16/17:) Ecg Monitoring (06/16/17:) Iv Access Insert/Monitor (06/16/17:) Oximetry (06/16/17 20:) Aspirin (Aspirin) (06/16/17 20:15) Sodium Chloride 0.9% Flush (Ns Flush) (06/16/17 20:15) Alcohol (Ethanol) (06/16/17 20:) CKMB (06/16/17 20:05) CKMB% (06/16/17 20:05) Labs Laboratory Tests Test 06/16/17 20:05 White Blood Count 6.1 TH/MM3 Red Blood Count 4.47 MIL/MM3 Hemoglobin 13.9 GM/DL Hematocrit 41.0 % Mean Corpuscular Volume 91.7 FL Mean Corpuscular Hemoglobin 31.2 PG Mean Corpuscular Hemoglobin Concent 34.0 % Red Cell Distribution Width 16.3 % Platelet Count 317 TH/MM3 Mean Platelet Volume 7.0 FL Neutrophils (%) (Auto) 53.2 % Lymphocytes (%) (Auto) 36.9 % Monocytes (%) (Auto) 5.9 % Eosinophils (%) (Auto) 3.0 % Basophils (%) (Auto) 1.0 % Neutrophils # (Auto) 3.2 TH/MM3 Lymphocytes # (Auto) 2.2 TH/MM3 Monocytes # (Auto) 0.4 TH/MM3 Eosinophils # (Auto) 0.2 TH/MM3 Basophils # (Auto) 0.1 TH/MM3 CBC Comment DIFF FINAL Differential Comment Prothrombin Time 10.1 SEC Prothromb Time International Ratio 0.9 RATIO Activated Partial Thromboplast Time 31.3 SEC Blood Urea Nitrogen 4 MG/DL Creatinine 0.66 MG/DL Random Glucose 90 MG/DL Calcium Level 9.0 MG/DL Magnesium Level 2.0 MG/DL Sodium Level 141 MEQ/L Potassium Level 3.9 MEQ/L Chloride Level 104 MEQ/L Carbon Dioxide Level 27.0 MEQ/L Anion Gap 10 MEQ/L Estimat Glomerular Filtration Rate 125 ML/MIN Total Creatine Kinase 512 U/L Creatine Kinase MB 17.0 NG/ML Creatine Kinase MB % 3.3 % Troponin I LESS THAN 0.02 NG/ML Ethyl Alcohol Level 310 MG/DL [facility] Medical Decision Making Medical Screen Exam Complete: Yes Emergency Medical Condition: Yes Medical Record Reviewed: Yes (on review of records using the [facility] medical record number, this patient underwent a nuclear stress test and myocardial perfusion scan in April. They were normal.) Interpretation(s) EKG shows a sinus rhythm with no ST segment elevation or depression. Differential Diagnosis Differential diagnosis of chest pain includes but is not limited to musculoskeletal pain, pulmonary embolism, acute coronary syndrome, pneumonia, pleurisy Narrative Course This patient presents for the evaluation of chest pain. He has had a recent negative nuclear stress test and myocardial perfusion scan. This chest pain spontaneously resolved prior to presentation to us. Last Impressions Chest X-Ray 06/16/172000 Signed Impressions: Service Date/Time: Friday, June 16, 2017 20:06 - CONCLUSION: No acute disease. Sean Leung MD CBC & BMP Diagram 06/16/17 20:05 Calcium Level 9.0, Magnesium Level 2.0 EtOH 310 CK 512 CKMB 17 CKMB % 3.3 trop <0.02 Patient has been sound asleep in no distress since arriving here. He is medically clear for discharge. Diagnosis Primary Impression: Chest pain Qualified Codes: R07.9 - Chest pain, unspecified Additional Impression: Alcohol intoxication Qualified Codes: F10.920 - Alcohol use, unspecified with intoxication, uncomplicated Disposition: DISCHARGE HOME Condition: Stable Sheryl Galvan MD Jun 16, 2017 20:21
--- NOTE | 2017-06-16 20:24 | RADRPT ---
EXAM DATE/TIME: 06/16/2017 20:06 [place] COMPARISON: No previous studies available for comparison. INDICATIONS : Cough. MEDICAL HISTORY : None. SURGICAL HISTORY : None. ENCOUNTER: Initial ACUITY: 1 day PAIN SCORE: 0/10 LOCATION: Bilateral chest FINDINGS: A single view of the chest demonstrates the lungs to be symmetrically aerated without evidence of mas s, infiltrate or effusion. The cardiomediastinal contours are unremarkable. Osseous structures are intact. CONCLUSION: No acute disease. Sean Leung MD on June 16, 2017 at 20:22 Board Certified Radiologist. This report was verified electronically.
[2017-06-16 20:55] LABS: AUTOMATED NEUTROPHIL # 3.2 TH/MM3 (1.8-7.7); BASOPHIL # 0.1 TH/MM3 (0-0.2); EOSINOPHIL # 0.2 TH/MM3 (0-0.4); HEMO FLAGS DIFF FINAL; LYMPH % 36.9 % (9.0-44.0); LYMPHOCYTE # 2.2 TH/MM3 (1.0-4.8); MEAN CELL VOLUME 91.7 FL (80.0-100.0); MEAN CORPUSCULAR HEMOGLOBIN 31.2 PG (27.0-34.0); MONO % 5.9 % (0.0-8.0); NEUT % 53.2 % (16.0-70.0); PLATELET COUNT 317 TH/MM3 (150-450); RED BLOOD COUNT 4.47 MIL/MM3 (4.50-5.90); RED CELL DISTRIBUTION WIDTH 16.3 % (11.6-17.2); WHITE BLOOD COUNT 6.1 TH/MM3 (4.0-11.0)
[2017-06-16 21:15] LABS: ANION GAP 10 MEQ/L (5-15); BLOOD UREA NITROGEN 4 MG/DL (7-18); CHLORIDE 104 MEQ/L (98-107); GLOMERULAR FILTRATION RATE 125 ML/MIN (>89); POTASSIUM 3.9 MEQ/L (3.5-5.1); SODIUM (NA) 141 MEQ/L (136-145)
[2017-06-16 21:17] LABS: APTT (PATIENT) 31.3 SEC (24.3-30.1); INTERNATIONAL NORMALIZED RATIO 0.9 RATIO; PROTHROMBIN TIME - PATIENT 10.1 SEC (9.8-11.6)
[2017-06-16 21:19] LABS: CREATINE KINASE 512 U/L (39-308)
[2017-06-16 21:22] LABS: ALCOHOL 310 MG/DL (0-5)
[2017-06-16 22:23] VITALS: BP 121/78; PULSE 84; RESP 16; O2SAT 98
[2017-06-16] MEDS ORDERED: LORazepam 2 MG TAB PO PRN (23:45)
[2017-06-16] MEDS ORDERED: LORazepam 1 MG TAB PO PRN (23:45)
[2017-06-16] MEDS ORDERED: FLUMAZENIL 0.5 MG/5 ML VIAL IV PUSH PRN (23:45)
[2017-06-16] MEDS ORDERED: LORazepam 2 MG/ML VIAL IV PUSH PRN ×4 (23:45)
[2017-06-17 10:34] VITALS: BP 136/76; PULSE 99; RESP 18; O2SAT 98
--- NOTE | 2017-06-17 11:17 | EKG ---
Date Performed: 06/16/2017 Time Performed: 20:01:03 PTAGE: 57 years EKG: Sinus rhythm NORMAL ECG NO PREVIOUS TRACING DOCTOR: Merlin Sarkar Interpretating Date/Time 06/17/2017 11:15:21
[2017-06-18] MEDS ORDERED: CEPH-460 PO (13:05)
[2017-06-18] MEDS ORDERED: CICL0.773 TOPICAL (13:05)
[2017-06-18] MEDS ORDERED: BACT800T5 PO (13:05)
== END 2017-06-17 13:30 | disposition home or self-care (01) ==
LOC: NEPE 19:53
DX: R07.9 Chest pain, unspecified (principal); F17.200 Nicotine dependence, unspecified, uncomplicated; F10.920 Alcohol use, unspecified with intoxication, uncomplicated; Y90.8 Blood alcohol level of 240 mg/100 ml or more
CPT/HCPCS: 71010; 80048; 80307; 82550; 82552; 83735; 84484; 85025; 85610; 85730; 93005; 96374; 99285; J2060

== ENCOUNTER 2017-06-18 12:01 | Emergency (ER) | payer SELFPAY ==
[~2017-06-18] VITALS: Ht 182.9 cm; Wt 78.0 kg
[2017-06-18 12:15] VITALS: BP 143/78; PULSE 84; RESP 14; TEMP 98.4; O2SAT 98
[2017-06-18] MEDS ORDERED: CEPH-460 PO (13:05)
[2017-06-18] MEDS ORDERED: BACT800T5 PO (13:05)
[2017-06-18] MEDS ORDERED: CICL0.773 TOPICAL (13:05)
--- NOTE | 2017-06-18 13:05 | PD ---
HPI Chief Complaint: Medical Clearance Time Seen by Provider: 12:34 Travel History International Travel<30 days: No Contact w/Intl Traveler<30days: No Traveled to known affect area: No History of Present Illness HPI Patient is 57-year-old male presenting to emergency for evaluation of bilateral foot pain. Patient was seen and evaluated a few days ago with the same complaint, he was given Keflex and Bactrim as well as a topical antifungal cream. He states that he lost his prescriptions. He has no new complaints today. [facility] Past Medical History Medical History: Denies Significant Hx Diminished Hearing: No ?: Not Past Surgical History Abdominal Surgery: Yes (Hernia repair) Social History Alcohol Use: Yes (6 back of beer daily) Tobacco Use: Yes (1-1/2 packs per day) Substance Use: No Allergies-Medications (Allergen,Severity, Reaction): Coded Allergies: No Known Allergies (Unverified , 06/18/17) Reported Meds & Prescriptions Reported Meds & Active Scripts Active Review of Systems Except as stated in HPI: all other systems reviewed are Neg Musculoskeletal: Positive: Edema, Pain Physical Exam Narrative GENERAL: Well-developed, well-nourished, well kept male. Resting comfortably in no acute distress. SKIN: Warm and dry. HEAD: Normocephalic. EYES: No scleral icterus. No injection or drainage. NECK: Supple, trachea midline. No JVD or lymphadenopathy. CARDIOVASCULAR: Regular rate and rhythm without murmurs, gallops, or rubs. RESPIRATORY: Breath sounds equal bilaterally. No accessory muscle use. GASTROINTESTINAL: Abdomen soft, non-tender, nondistended. MUSCULOSKELETAL: No cyanosis, he went to bilateral feet. 2+ dorsalis pedal pulses bilaterally. Toes bilaterally are mildly erythematous and interdigital spaces appear excoriated more so on the right than the left. His toenails appear consistent with a fungal infection. BACK: Nontender without obvious deformity. No CVA tenderness. Data Data Last Documented VS Vital Signs Date Time Temp Pulse Resp B/P (MAP) Pulse Ox O2 Delivery O2 Flow Rate FiO2 06/18/17 12:15 98.4 84 14 143/78 (99) 98 MDM Medical Decision Making Medical Screen Exam Complete: Yes Emergency Medical Condition: Yes Medical Record Reviewed: Yes Interpretation(s) Vital Signs Date Time Temp Pulse Resp B/P (MAP) Pulse Ox O2 Delivery O2 Flow Rate FiO2 06/18/17 12:15 98.4 84 14 143/78 (99 98 Differential Diagnosis Athletes foot versus cellulitis versus dermatitis versus dependent edema versus other Narrative Course Patient's 57-year-old male returning to him or department with the same complaint he was seen previously for. He has no new complaints. Patient's vital signs are stable. He will be provided with refills of previous he prescribed antibiotics and topical antifungal cream. He was advised to not lose them and get them filled immediately and use as directed. Should any of instructions. Patient stable for discharge. Diagnosis Primary Impression: Tinea pedis Qualified Codes: B35.3 - Tinea pedis [facility]errals: [facility] Patient Instructions: General Instructions, Tinea Pedis (DC) Additional Instructions: Follow-up with the [facility] Keep feet clean and dry Return to emergency department for any new or worsening symptoms Use medications as directed Med/Other Pt SpecificInfo: Prescription(s) given Scripts Sulfamethoxazole-Trimethoprim (Bactrim DS) 800-160 Mg Tab 1 TAB PO BID for Infection, #20 TAB Prov: Marylou Serra 06/18/17 Cephalexin (Keflex) 500 Mg Cap 500 MG PO Q6H for Infection for 10 Days, CAP 0 Refills Prov: Marylou Serra 06/18/17 Ciclopirox Topical (Ciclopirox Topical) 0.77% Gel 1 APPLIC TOPICAL BID for FUNGAL INFECTION for 30 Days, #45 GM 0 Refills Prov: Marylou Serra 06/18/17 Disposition: 01 DISCHARGE HOME Condition: Stable Marylou Serra Jun 18, 2017 13:05
== END 2017-06-18 13:24 | disposition home or self-care (01) ==
LOC: NEPD 12:01
DX: B35.3 Tinea pedis (principal)
CPT/HCPCS: 99282

== ENCOUNTER 2017-06-20 17:00 | Emergency (ER) | payer SELFPAY ==
[~2017-06-20] VITALS: Ht 182.9 cm; Wt 75.0 kg
[2017-06-20 17:08] VITALS: BP 136/80; PULSE 118; RESP 20; TEMP 97.8; O2SAT 96
--- NOTE | 2017-06-20 17:53 | PD ---
HPI Chief Complaint: Injury Time Seen by Provider: 17:48 Travel History International Travel<30 days: No Contact w/Intl Traveler<30days: No Traveled to known affect area: No History of Present Illness HPI 57-year-old male who is homeless, well-known to the emergency department, presents to [facility] department for evaluation of bilateral foot pain. Patient has been seen and evaluated recently, diagnosed with tinea pedis with a secondary skin infection. He has been prescribed oral antibiotics as well as antifungal. He has not filled these prescriptions. Denies fever or chills. No new injury. No other symptoms to report. History Past Medical Histgory Tetanus Vaccination: < 5 Years Social History Alcohol Use: Yes (6 back of beer daily) Tobacco Use: Yes (1-1/2 packs per day) Allergies-Medications (Allergen,Severity, Reaction): Coded Allergies: No Known Allergies (Unverified , 06/20/17) Reported Meds & Prescriptions Reported Meds & Active Scripts Active Bactrim DS (Sulfamethoxazole-Trimethoprim) 800-160 Mg Tab 1 Tab PO BID Keflex (Cephalexin) 500 Mg Cap 500 Mg PO Q6H 10 Days Ciclopirox Topical 0.77% Gel 1 Applic TOPICAL BID 30 Days Review of Systems Except as stated in HPI: all other systems reviewed are Neg Physical Exam Narrative GENERAL: Unkempt male patient, no acute distress SKIN: Focused skin assessment warm/dry. Patient features are slightly erythematous, less macerated in appearance than prior to the day. There is a 1- 1/2 cm in diameter blister on the right ball of the foot without surrounding erythema or drainage. HEAD: Normocephalic. EYES: No scleral icterus. No injection or drainage. NECK: Supple, trachea midline. No JVD or lymphadenopathy. CARDIOVASCULAR: Elevated rate and rhythm without murmurs, gallops, or rubs. RESPIRATORY: Breath sounds coarse equal bilaterally. No accessory muscle use. GASTROINTESTINAL: Abdomen soft, non-tender, nondistended. MUSCULOSKELETAL: No cyanosis, or edema. BACK: Nontender without obvious deformity. No CVA tenderness. Data Data Last Documented VS Vital Signs Date Time Temp Pulse Resp B/P (MAP) Pulse Ox O2 Delivery O2 Flow Rate FiO2 06/20/17 17:55 98 06/20/17 17:08 97.8 20 96 Room Air [facility] Medical Screen Exam Complete: Yes Emergency Medical Condition: No Differential Diagnosis tinea pedis with secondary infection; much improved; still being treated Narrative Course 57-year-old male presents to the emergency department for evaluation of bilateral foot pain. Physical exam is improved from previous inpatient has not even filled his prescriptions. He still has these in hand and I encouraged him to fill them. But at this time there are no urgent or emergent needs for medical intervention identified. A medical screening exam was performed: At the time of evaluation the presenting medical condition was determined not to be of an emergent nature. The patient was given the option of receiving additional care, but declined. Patient was given options for additional community resources from which to obtain care. The Patient Has Been advised to seek medical attention for their presenting complaint. The patient has been advised to return to the ER at any time if an emergent condition develops. Primary Impression: Encounter for medical screening examination Condition: Neisha Joyner Jun 20, 2017 17:53
[2017-06-20 17:55] VITALS: PULSE 98
== END 2017-06-20 18:06 | disposition left against medical advice (07) ==
LOC: NEPD 17:00
DX: M79.671 Pain in right foot (principal)
CPT/HCPCS: 99281

== ENCOUNTER 2017-06-27 10:21 | Emergency (ER) | payer SELFPAY ==
[2017-06-27 10:34] VITALS: BP 122/83; PULSE 90; RESP 18; TEMP 97.9; O2SAT 98
--- NOTE | 2017-06-27 11:08 | PD ---
HPI Chief Complaint: Alcohol/Drug Intoxication Time Seen by Provider: 10:39 Travel History International Travel<30 days: No Contact w/Intl Traveler<30days: No Traveled to known affect area: No History of Present Illness HPI The patient's 57 years old. He arrives by EMS. He was found by the [place] [employer] sleep outside with bottles of beer around him. Vital signs were normal and scene. GCS 15. Patient reports drinking about 6 beers today. He drinks everyday. He complains of bilateral foot pain dorsal and plantar aspects. Burning quality. Denies drug abuse. No suicidal or homicidal ideation. [facility] Past Medical History Diminished Hearing: No Past Surgical History Abdominal Surgery: Yes (Hernia repair) Social History Alcohol Use: Yes (6 back of beer daily) Tobacco Use: Yes (1-1/2 packs per day) Substance Use: No Allergies-Medications (Allergen,Severity, Reaction): Coded Allergies: No Known Allergies (Unverified , 06/27/17) Reported Meds & Prescriptions Reported Meds & Active Scripts Active Bactrim DS (Sulfamethoxazole-Trimethoprim) 800-160 Mg Tab 1 Tab PO BID Keflex (Cephalexin) 500 Mg Cap 500 Mg PO Q6H 10 Days Ciclopirox Topical 0.77% Gel 1 Applic TOPICAL BID 30 Days Review of Systems Except as stated in HPI: all other systems reviewed are Neg General / Constitutional: No: Fever Psychiatric: Positive: Substance Abuse Physical Exam Narrative GENERAL: 57-year-old male somewhat thin no acute distress EtOH on breath somewhat disheveled SKIN: Warm and dry. About 2 cm blister lesion overlying the plantar aspect of the metatarsophalangeal articulation. No cellulitic change. HEAD: Atraumatic. Normocephalic. EYES: Pupils equal and round. No scleral icterus. No injection or drainage. ENT: No nasal bleeding or discharge. Mucous membranes pink and moist. NECK: Trachea midline. No JVD. CARDIOVASCULAR: Regular rate and rhythm. RESPIRATORY: No accessory muscle use. Clear to auscultation. Breath sounds equal bilaterally. GASTROINTESTINAL: Abdomen soft, non-tender, nondistended. Hepatic and splenic margins not palpable. MUSCULOSKELETAL: Extremities without clubbing, cyanosis, or edema. No obvious deformities. NEUROLOGICAL: GCS 15. Normal gait. Pain at 3. PSYCHIATRIC: EtOH on breath. Data Data Last Documented VS Vital Signs Date Time Temp Pulse Resp B/P (MAP) Pulse Ox O2 Delivery O2 Flow Rate FiO2 06/27/17 10:34 97.9 90 18 122/83 (96) 98 Vital signs reviewed MDM Medical Decision Making Medical Screen Exam Complete: Yes Emergency Medical Condition: Yes Medical Record Reviewed: Yes Differential Diagnosis Alcohol intoxication, alcoholism, cellulitis Narrative Course Patient has a blister on the right foot about 2 cm in greatest diameter. No foot cellulitis or infectious process. He has a normal gait and is sufficiently sober for discharge. Lifestyle and hygiene modifications discussed with patient. Diagnosis Primary Impression: Alcohol intoxication Qualified Codes: F10.920 - Alcohol use, unspecified with intoxication, uncomplicated Referrals: [facility] days Disposition: 01 DISCHARGE HOME Condition: Stable Ronak Francis MD Jun 27, 2017 10:39
== END 2017-06-27 11:13 | disposition home or self-care (01) ==
LOC: PHED 10:21
DX: F10.920 Alcohol use, unspecified with intoxication, uncomplicated (principal); F17.200 Nicotine dependence, unspecified, uncomplicated
CPT/HCPCS: 99283

== ENCOUNTER 2017-06-28 23:02 | Emergency (ER) | payer SELFPAY ==
[2017-06-28 23:21] VITALS: BP 117/55; PULSE 74; RESP 16; TEMP 97.6; O2SAT 97
--- NOTE | 2017-06-28 23:35 | PD ---
HPI Chief Complaint: Skin Problem Time Seen by Provider: 23:16 Travel History International Travel<30 days: No Contact w/Intl Traveler<30days: No Traveled to known affect area: No History of Present Illness HPI 57-year-old male with long-standing history of alcohol abuse with frequent visits to the emergency department, presents to emergency department again today for bilateral foot pain. Patient has been drinking alcohol. He has not filled his prescriptions that he was provided on both of his last visits. He denies any fever or chills. States the pain in his feet is constant, throbbing , 8 out of 10. Denies any injury. He has no other symptoms to report. [facility] Past Medical History Medical History: Denies Significant Hx Diminished Hearing: No Past Surgical History Abdominal Surgery: Yes (Hernia repair) Social History Alcohol Use: Yes (6 back of beer daily) Tobacco Use: Yes (1-1/2 packs per day) Substance Use: No Allergies-Medications (Allergen,Severity, Reaction): Coded Allergies: No Known Allergies (Unverified , 06/28/17) Reported Meds & Prescriptions Reported Meds & Active Scripts Active No Active Prescriptions or Reported Medications Review of Systems Except as stated in HPI: all other systems reviewed are Neg Physical Exam Narrative GENERAL: Unkempt male patient, ambulatory and in no acute distress SKIN: Focused skin assessment warm/dry. There is a ruptured blister on the plantar surface of the distal right foot. There is mild erythema between the toes of bilateral feet. HEAD: Normocephalic. EYES: No scleral icterus. No injection or drainage. NECK: Supple, trachea midline. No JVD or lymphadenopathy. CARDIOVASCULAR: Regular rate and rhythm without murmurs, gallops, or rubs. RESPIRATORY: Breath sounds equal bilaterally. No accessory muscle use. GASTROINTESTINAL: Abdomen soft, non-tender, nondistended. MUSCULOSKELETAL: No cyanosis, or edema. BACK: Nontender without obvious deformity. No CVA tenderness. Data Data Last Documented VS Vital Signs Date Time Temp Pulse Resp B/P (MAP) Pulse Ox O2 Delivery O2 Flow Rate FiO2 06/28/17 23:21 97.6 74 16 117/55 (75) 97 MDM Medical Decision Making Medical Screen Exam Complete: Yes Emergency Medical Condition: Yes Medical Record Reviewed: Yes Differential Diagnosis Malingering versus substance abuse versus mood disorder versus tinea pedis versus maceration versus blisters Narrative Course 57-year-old male presents to the emergency department for evaluation of bilateral foot pain. He admits to drinking alcohol today. He is ambulatory without difficulty. Patient's feet actually appear much improved from his last visit. I have encouraged him to continue to dry them out and to wear new socks area patient states he still has his prescriptions from his previous visit. I have encouraged him to fill these. At this time there are no urgent or emergent needs for medical intervention identified. A medical screening exam was performed: At the time of evaluation the presenting medical condition was determined not to be of an emergent nature. The patient was given the option of receiving additional care, but declined. Patient was given options for additional community resources from which to obtain care. The Patient Has Been advised to seek medical attention for their presenting complaint. The patient has been advised to return to the ER at any time if an emergent condition develops. Diagnosis Primary Impression: Alcohol intoxication Qualified Codes: F10.929 - Alcohol use, unspecified with intoxication, unspecified Additional Impression: Bilateral foot pain Referrals: [facility] (Out patient) Primary Care Physician Patient Instructions: Abuse of Alcohol (ED), General Instructions Additional Instructions: Consume alcohol in moderation Follow up with your primary care provider Make sure you are not walking around wet socks Allow your feet to dry out at least one time a day Return to ED with acute worsening of symptoms Med/Other Pt SpecificInfo: No Change to Meds Scripts No Active Prescriptions or Reported Meds Disposition: 01 DISCHARGE HOME Condition: Stable Neisha Baker LEANA Jun 28, 2017 23:35
== END 2017-06-29 00:19 | disposition home or self-care (01) ==
LOC: NEPD 23:02
DX: F10.929 Alcohol use, unspecified with intoxication, unspecified (principal); M79.671 Pain in right foot; M79.672 Pain in left foot; F17.200 Nicotine dependence, unspecified, uncomplicated
CPT/HCPCS: 99281

== ENCOUNTER 2017-07-01 21:59 | Emergency (ER) | payer OTHER ==
[2017-07-01 22:19] VITALS: BP 144/90; PULSE 90; RESP 16; TEMP 97.6; O2SAT 97
[2017-07-02 00:10] LABS: AUTOMATED NEUTROPHIL # 2.4 TH/MM3 (1.8-7.7); BASOPHIL # 0.1 TH/MM3 (0-0.2); EOSINOPHIL # 0.1 TH/MM3 (0-0.4); EOSINOPHIL % 2.3 % (0.0-4.0); HEMATOCRIT 37.7 % (39.0-51.0); HEMO FLAGS DIFF FINAL; LYMPHOCYTE # 2.1 TH/MM3 (1.0-4.8); MEAN CELL VOLUME 90.5 FL (80.0-100.0); MEAN CORPUSCULAR HEMOGLOBIN 30.9 PG (27.0-34.0); MEAN CORPUSCULAR HGB CONC 34.1 % (32.0-36.0); NEUT % 45.7 % (16.0-70.0); PLATELET COUNT 203 TH/MM3 (150-450); RED BLOOD COUNT 4.16 MIL/MM3 (4.50-5.90); RED CELL DISTRIBUTION WIDTH 16.5 % (11.6-17.2); WHITE BLOOD COUNT 5.2 TH/MM3 (4.0-11.0)
[2017-07-02 00:16] LABS: ALT (GPT) 69 U/L (12-78); ANION GAP 10 MEQ/L (5-15); AST (GOT) 120 U/L (15-37); BICARBONATE 27.4 MEQ/L (21.0-32.0); BLOOD UREA NITROGEN 5 MG/DL (7-18); CHLORIDE 100 MEQ/L (98-107); GLOMERULAR FILTRATION RATE 92 ML/MIN (>89); POTASSIUM 3.7 MEQ/L (3.5-5.1); SODIUM (NA) 137 MEQ/L (136-145)
[2017-07-02 00:19] LABS: ALKALINE PHOSPHATASE 139 U/L (45-117); TOTAL BILIRUBIN ADULT 0.4 MG/DL (0.2-1.0)
[2017-07-02 00:21] LABS: ALCOHOL 381 MG/DL (0-5)
[2017-07-02] MEDS ORDERED: LORazepam 1 MG TAB PO PRN (00:30)
[2017-07-02] MEDS ORDERED: LORazepam 2 MG/ML VIAL IV PUSH PRN ×4 (00:30)
[2017-07-02] MEDS ORDERED: LORazepam 2 MG TAB PO PRN (00:30)
[2017-07-02] MEDS ORDERED: FLUMAZENIL 0.5 MG/5 ML VIAL IV PUSH PRN (00:30)
[2017-07-02] MEDS ORDERED: LORazepam 1 MG TAB PO ONE (00:30)
--- NOTE | 2017-07-02 00:33 | PD ---
HPI Chief Complaint: Psychiatric Symptoms Time Seen by Provider: 22:17 Travel History International Travel<30 days: No Contact w/Intl Traveler<30days: No Traveled to known affect area: No History of Present Illness HPI This is a 57-year-old male who has a history of chronic alcoholism who presents to the emergency department reporting that he's been depressed and has been having thoughts of killing himself. He reports that his mother 2 days ago. He says he was at her bedside when she . He says ever since then he's been very depressed and use been having increasing feelings of hopelessness. He says his circumstances are really bad. His house is under foreclosure and his children are out of state. He doesn't feel like he has much to live for. Today he thought about taking a rope and hitting himself from the [facility] [place] which is unusual for him. PFSH Past Medical History Diminished Hearing: No Tetanus Vaccination: < 5 Years Influenza Vaccination: No Past Surgical History Abdominal Surgery: Yes (Hernia repair) Social History Alcohol Use: Yes (6 back of beer daily) Tobacco Use: Yes (1-1/2 packs per day) Substance Use: No Allergies-Medications (Allergen,Severity, Reaction): Coded Allergies: No Known Allergies (Unverified , 06/28/17) Reported Meds & Prescriptions Reported Meds & Active Scripts Active No Active Prescriptions or Reported Medications Review of Systems Except as stated in HPI: all other systems reviewed are Neg Physical Exam Narrative GENERAL: Disheveled appearing. SKIN: Chronic dry ulcerations of the plantar surface of the right foot. HEAD: Atraumatic. Normocephalic. EYES: Pupils equal and round. No injection or drainage. ENT: Moist mucous membranes NECK: Trachea midline. CARDIOVASCULAR: Regular rate and rhythm. No murmur appreciated. RESPIRATORY: Clear to auscultation. Breath sounds equal bilaterally. GASTROINTESTINAL: Abdomen soft, non-tender, nondistended. MUSCULOSKELETAL: No obvious deformities. NEUROLOGICAL: Awake and alert. No obvious cranial nerve deficits. Moving all extremities. PSYCHIATRIC: Appropriate mood and affect; insight and judgment normal. Depressed mood. Expressing suicidal and homicidal ideation. Data Data Last Documented VS Vital Signs Date Time Temp Pulse Resp B/P (MAP) Pulse Ox O2 Delivery O2 Flow Rate FiO2 07/01/17 22:19 97.6 90 16 144/90 (108) 97 Orders Orders Complete Blood Count With Diff (07/01/17 23:26) Comprehensive Metabolic Panel (07/01/17 23:26) Alcohol (Ethanol) (07/01/17 23:26) Drug Screen, Random Urine (07/01/17 23:26) Lorazepam (Ativan) (07/02/17 00:30) Diet Regular Basic (07/02/17 Breakfast) Alcohol Withdrawal Asmt-Ciwa ONCE (07/02/17 00:29) Flumazenil Inj (Romazicon Inj) (07/02/17 00:30) Lorazepam (Ativan) (07/02/17 00:30) Lorazepam Inj (Ativan Inj) (07/02/17 00:30) Lorazepam (Ativan) (07/02/17 00:30) Lorazepam Inj (Ativan Inj) (07/02/17 00:30) Lorazepam Inj (Ativan Inj) (07/02/17 00:30) Lorazepam Inj (Ativan Inj) (07/02/17 00:30) Labs Laboratory Tests Test 07/01/17 23:00 White Blood Count 5.2 TH/MM3 Red Blood Count 4.16 MIL/MM3 Hemoglobin 12.9 GM/DL Hematocrit 37.7 % Mean Corpuscular Volume 90.5 FL Mean Corpuscular Hemoglobin 30.9 PG Mean Corpuscular Hemoglobin Concent 34.1 % Red Cell Distribution Width 16.5 % Platelet Count 203 TH/MM3 Mean Platelet Volume 7.7 FL Neutrophils (%) (Auto) 45.7 % Lymphocytes (%) (Auto) 40.0 % Monocytes (%) (Auto) 11.0 % Eosinophils (%) (Auto) 2.3 % Basophils (%) (Auto) 1.0 % Neutrophils # (Auto) 2.4 TH/MM3 Lymphocytes # (Auto) 2.1 TH/MM3 Monocytes # (Auto) 0.6 TH/MM3 Eosinophils # (Auto) 0.1 TH/MM3 Basophils # (Auto) 0.1 TH/MM3 CBC Comment DIFF FINAL Differential Comment Blood Urea Nitrogen 5 MG/DL Creatinine 0.86 MG/DL Random Glucose 76 MG/DL Total Protein 7.6 GM/DL Albumin 3.5 GM/DL Calcium Level 8.1 MG/DL Alkaline Phosphatase 139 U/L Aspartate Amino Transf (AST/SGOT) 120 U/L Alanine Aminotransferase (ALT/SGPT) 69 U/L Total Bilirubin 0.4 MG/DL Sodium Level 137 MEQ/L Potassium Level 3.7 MEQ/L Chloride Level 100 MEQ/L Carbon Dioxide Level 27.4 MEQ/L Anion Gap 10 MEQ/L Estimat Glomerular Filtration Rate 92 ML/MIN Urine Opiates Screen NEG Urine Barbiturates Screen NEG Urine Amphetamines Screen NEG Urine Benzodiazepines Screen NEG Urine Cocaine Screen NEG Urine Cannabinoids Screen NEG Ethyl Alcohol Level 381 MG/DL MDM Medical Decision Making Medical Screen Exam Complete: Yes Emergency Medical Condition: Yes Interpretation(s) No leukocytosis Electrolytes are reassuring Alcohol is 381 Urine drug screen is negative Differential Diagnosis Acute alcohol intoxication, adjustment reaction, alcohol-induced mood disorder, depression Narrative Course This is a 57-year-old male who presents to the emergency department under a Jimenes act having told police that he was having suicidal thoughts. The patient reports that his mother 2 days ago, his house is under foreclosure and he feels increasingly hopeless. Labs were obtained which demonstrated an alcohol level of 381. The patient was remarkably conversant and coherent at this alcohol level and in our system he has a known history of very severe chronic alcohol use. He has several risk factors for depression. I think he should be reassessed when his alcohol level has improved to evaluate whether this is an alcohol-induced mood disorder or whether it is true depression and wether he requires acute intervention. Scripts No Active Prescriptions or Reported Meds Yumiko Ashley MD Jul 02, 2017 00:33
[2017-07-02 12:15] VITALS: BP 127/89; PULSE 97; RESP 18; O2SAT 97
[2017-07-02 15:11] VITALS: BP 152/76; PULSE 99; RESP 18
--- NOTE | 2017-07-02 16:06 | PD ---
Physical Exam Date Seen by Provider: Jul 02, 2017 Time Seen by Provider: 16:05 Narrative 57-year-old male well known to us as a chronic alcoholic who was Jimenes acted last evening has been evaluated by psychiatric services and cleared for discharge for his psychiatric complaints. Patient medically is stable and is cleared for discharge. Data Data Last Documented VS Vital Signs Date Time Temp Pulse Resp B/P (MAP) Pulse Ox O2 Delivery O2 Flow Rate FiO2 07/02/17 15:11 99 18 152/76 (101) Room Air 07/02/17 12:15 97 07/01/17 22:19 97.6 Orders Orders Complete Blood Count With Diff (07/01/17 23:26) Comprehensive Metabolic Panel (07/01/17 23:26) Alcohol (Ethanol) (07/01/17 23:26) Drug Screen, Random Urine (07/01/17 23:26) Lorazepam (Ativan) (07/02/17 00:30) Diet Regular Basic (07/02/17 Breakfast) Alcohol Withdrawal Asmt-Ciwa ONCE (07/02/17 00:29) Flumazenil Inj (Romazicon Inj) (07/02/17 00:30) Lorazepam (Ativan) (07/02/17 00:30) Lorazepam Inj (Ativan Inj) (07/02/17 00:30) Lorazepam (Ativan) (07/02/17 00:30) Lorazepam Inj (Ativan Inj) (07/02/17 00:30) Lorazepam Inj (Ativan Inj) (07/02/17 00:30) Lorazepam Inj (Ativan Inj) (07/02/17 00:30) Diet Regular Basic (07/02/17 Lunch) Labs Laboratory Tests Test 07/01/17 23:00 White Blood Count 5.2 TH/MM3 Red Blood Count 4.16 MIL/MM3 Hemoglobin 12.9 GM/DL Hematocrit 37.7 % Mean Corpuscular Volume 90.5 FL Mean Corpuscular Hemoglobin 30.9 PG Mean Corpuscular Hemoglobin Concent 34.1 % Red Cell Distribution Width 16.5 % Platelet Count 203 TH/MM3 Mean Platelet Volume 7.7 FL Neutrophils (%) (Auto) 45.7 % Lymphocytes (%) (Auto) 40.0 % Monocytes (%) (Auto) 11.0 % Eosinophils (%) (Auto) 2.3 % Basophils (%) (Auto) 1.0 % Neutrophils # (Auto) 2.4 TH/MM3 Lymphocytes # (Auto) 2.1 TH/MM3 Monocytes # (Auto) 0.6 TH/MM3 Eosinophils # (Auto) 0.1 TH/MM3 Basophils # (Auto) 0.1 TH/MM3 CBC Comment DIFF FINAL Differential Comment Blood Urea Nitrogen 5 MG/DL Creatinine 0.86 MG/DL Random Glucose 76 MG/DL Total Protein 7.6 GM/DL Albumin 3.5 GM/DL Calcium Level 8.1 MG/DL Alkaline Phosphatase 139 U/L Aspartate Amino Transf (AST/SGOT) 120 U/L Alanine Aminotransferase (ALT/SGPT) 69 U/L Total Bilirubin 0.4 MG/DL Sodium Level 137 MEQ/L Potassium Level 3.7 MEQ/L Chloride Level 100 MEQ/L Carbon Dioxide Level 27.4 MEQ/L Anion Gap 10 MEQ/L Estimat Glomerular Filtration Rate 92 ML/MIN Urine Opiates Screen NEG Urine Barbiturates Screen NEG Urine Amphetamines Screen NEG Urine Benzodiazepines Screen NEG Urine Cocaine Screen NEG Urine Cannabinoids Screen NEG Ethyl Alcohol Level 381 MG/DL [facility] Medical Record Reviewed: Yes Supervised Visit with YENI: Yes Differential Diagnosis 57-year-old male well known to us as a chronic alcoholic who was Jimenes acted last evening has been evaluated by psychiatric services and cleared for discharge for his psychiatric complaints. Patient medically is stable and is cleared for discharge. Referrals: [facility] Patient Instructions: General Instructions Scripts No Active Prescriptions or Reported Meds Disposition: 01 DISCHARGE HOME Condition: Stable Prasad Trevino Jul 02, 2017 16:06
--- NOTE | 2017-07-02 16:16 | PD ---
History of Present Illness Chief Complaint: Psychiatric Symptoms Time Seen by Provider: 15:45 Travel History International Travel<30 Days: No Contact w/Intl Traveler<30days: No Known affected area: No Legal Status Legal Status: Jimenes Act Jimenes Act Signed By: Chava Jackman History of Present Illness: History of Present Illness This is a 57-year-old male with a history of alcohol dependence who presents to the emergency department under a Jimenes act initiated by MARINA. The Jimenes act alleges that he has been depressed due to his mother dying and that he has been thinking of attempting to kill himself by hanging. he did not make any attempt at harming himself. He reports several stressors including becoming homeless as well as the of his mother. The patient was intoxicated when he made the statements and his BAL on arrival to ED was 381. The patient was monitored in safe environment with no behavioral concerns and no suicidality. This morning he is clinically sober. He is ambulating well with no gait impairment. Speech is clear, logical and goal directed. There is no psychosis, no jesus and no objective signs of depression, he is not anxious. Denies any suicidal or homicidal ideation, intent or plan. Admits he has been drinking more lately but unfortunately he is not ready to stop drinking at this time. PFSH Past Medical History Diminished Hearing: No Tetanus Vaccination: < 5 Years Influenza Vaccination: No Past Surgical History Abdominal Surgery: Yes (Hernia repair) Psychiatric History Psychiatric History Hx Psychiatric Treatment: Denies any History of Inpatient Treatment: No Guns or firearms in home: No Social History x 2. has a 10 year old daughter but has not had contact with her since she was 2 years old. He is homeless. Unemployed. 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 drinks most days.) Hx of Substance Use Treatment: Yes Family Psychiatric History Negative Allergies-Medications (Allergen,Severity, Reaction): Coded Allergies: No Known Allergies (Unverified , 06/28/17) Reported Meds & Prescriptions Reported Meds & Active Scripts Active No Active Prescriptions or Reported Medications Review of Systems Musculoskeletal: COMPLAINS OF: Muscle aches Exam Alert: Yes [place]: Person (ox4) Mood: Calm Affect: Appropriate Speech: Clear, Logical Eye Contact: Normal Memory Intact: Comment (no impairment) Hallucinations: Other (Negative) Delusions: No Suicidal: Ideation (Denies any) Homicidal: Ideation (Denies any) Insight/Judgement Poor. Not impaired MDM Medical Decision Making Medical Record Reviewed: Yes Assessment/Plan This is a 57-year-old male with a history of alcohol dependence who presents to the emergency department under a Jimenes act initiated by MARINA. The Jimenes act alleges that he has been depressed due to his mother dying and that he has been thinking of attempting to kill himself by hanging. Patient intoxicated at the time that he made statements and BAL on arrival to ED was 381. After he sobered up clinically he denied any suicidal ideation, intent or plan. Patient states he does not remember having made statements. he is counseled on AA, abstinence and sobriety. he is not ready at this time to address his dependence on ETOH . Patient does not present any acute mental health illness as defined under the Jimenes act . The BA is lifted. Psychiatrically clear for discharge from ED. Orders Orders Complete Blood Count With Diff (07/01/17 23:26) Comprehensive Metabolic Panel (07/01/17 23:26) Alcohol (Ethanol) (07/01/17 23:26) Drug Screen, Random Urine (07/01/17 23:26) Lorazepam (Ativan) (07/02/17 00:30) Diet Regular Basic (07/02/17 Breakfast) Alcohol Withdrawal Asmt-Ciwa ONCE (07/02/17 00:29) Flumazenil Inj (Romazicon Inj) (07/02/17 00:30) Lorazepam (Ativan) (07/02/17 00:30) Lorazepam Inj (Ativan Inj) (07/02/17 00:30) Lorazepam (Ativan) (07/02/17 00:30) Lorazepam Inj (Ativan Inj) (07/02/17 00:30) Lorazepam Inj (Ativan Inj) (07/02/17 00:30) Lorazepam Inj (Ativan Inj) (07/02/17 00:30) Diet Regular Basic (07/02/17 Lunch) Results Vital Signs Date Time Temp Pulse Resp B/P (MAP) Pulse Ox O2 Delivery O2 Flow Rate FiO2 07/02/17 15:11 99 18 152/76 (101) Room Air 07/02/17 12:15 97 18 127/89 (102) 97 Room Air 07/01/17 22:19 97.6 90 16 144/90 (108) 97 Laboratory Tests Test 07/01/17 23:00 White Blood Count 5.2 Red Blood Count 4.16 Hemoglobin 12.9 Hematocrit 37.7 Mean Corpuscular Volume 90.5 Mean Corpuscular Hemoglobin 30.9 Mean Corpuscular Hemoglobin Concent 34.1 Red Cell Distribution Width 16.5 Platelet Count 203 Mean Platelet Volume 7.7 Neutrophils (%) (Auto) 45.7 Lymphocytes (%) (Auto) 40.0 Monocytes (%) (Auto) 11.0 Eosinophils (%) (Auto) 2.3 Basophils (%) (Auto) 1.0 Neutrophils # (Auto) 2.4 Lymphocytes # (Auto) 2.1 Monocytes # (Auto) 0.6 Eosinophils # (Auto) 0.1 Basophils # (Auto) 0.1 CBC Comment DIFF FINAL Differential Comment Blood Urea Nitrogen 5 Creatinine 0.86 Random Glucose 76 Total Protein 7.6 Albumin 3.5 Calcium Level 8.1 Alkaline Phosphatase 139 Aspartate Amino Transf (AST/SGOT) 120 Alanine Aminotransferase (ALT/SGPT) 69 Total Bilirubin 0.4 Sodium Level 137 Potassium Level 3.7 Chloride Level 100 Carbon Dioxide Level 27.4 Anion Gap 10 Estimat Glomerular Filtration Rate 92 Urine Opiates Screen NEG Urine Barbiturates Screen NEG Urine Amphetamines Screen NEG Urine Benzodiazepines Screen NEG Urine Cocaine Screen NEG Urine Cannabinoids Screen NEG Ethyl Alcohol Level 381 Diagnosis Primary Impression: alcohol dependnce with intoxication Psychiatrically Cleared: Yes Med/ Other Pt Specific Info: No Meds Exist/No RX given Prescriptions No Active Prescriptions or Reported Meds Disposition: 01 DISCHARGE HOME Condition: Stable Sis Brian Segal LEANA Jul 02, 2017 16:16
== END 2017-07-02 16:33 | disposition home or self-care (01) ==
LOC: NEPD 21:59 → NEPJ 07-02 16:33
DX: F10.229 Alcohol dependence with intoxication, unspecified (principal); F17.200 Nicotine dependence, unspecified, uncomplicated; Y90.8 Blood alcohol level of 240 mg/100 ml or more
CPT/HCPCS: 80053; 80307; 85025; 99283

== ENCOUNTER 2017-11-10 13:44 | Emergency (ER) | payer SELFPAY ==
[~2017-11-10] VITALS: Ht 182.9 cm; Wt 83.0 kg
[2017-11-10 13:48] VITALS: BP 138/90; PULSE 90; RESP 18; TEMP 98.2; O2SAT 98
[2017-11-10] MEDS ORDERED: NYSTATIN 100,000 U/GM PWD 15 GM BTL TOPICAL ONE (16:30)
--- NOTE | 2017-11-10 17:12 | PD ---
HPI Chief Complaint: Skin Problem Time Seen by Provider: 16:07 Travel History International Travel<30 days: No Contact w/Intl Traveler<30days: No Traveled to known affect area: No History of Present Illness HPI This is a 57-year-old male who has a history of chronic alcoholism who presents to the emergency department reporting that he is intoxicated. He says that he just found out his parents left him at $750,000 insurance policy and it is can take 2 weeks to clear in the bank. He says he really wants to get sober before the money clears. He said he went to [facility] earlier today but they were full. He also mentions that he got bit by a snake 2 days ago on his left arm and is having pain in his feet which has been going on for a long time. He is intoxicated and history is limited. PFSH Past Medical History Anemia: Yes Autoimmune Disease: No Depression: Yes (WITH SUICIDAL IDEATIONS in past) Cancer: No Cardiovascular Problems: Yes Diabetes: No Diminished Hearing: No Gastrointestinal Disorders: Yes (GI BLEED) Genitourinary: No Hiatal Hernia: Yes Hypertension: Yes Immune Disorder: No Implanted Vascular Access Dvce: No Kidney Stones: Yes Musculoskeletal: No Neurologic: Yes Psychiatric: No Reproductive: No Respiratory: No Immunizations Current: Yes Myocardial Infarction: Yes Seizures: Yes (ALCOHOL RELATED) Ulcer: Yes Tetanus Vaccination: < 5 Years Past Surgical History Abdominal Surgery: Yes (Hernia repair) Other Surgery: Yes (HIATAL HERNIA 1978) Social History Alcohol Use: Yes (6 back of beer daily) Tobacco Use: Yes (1-1/2 packs per day) Substance Use: Yes Allergies-Medications (Allergen,Severity, Reaction): Coded Allergies: No Known Allergies (Unverified Adverse Reaction, Unknown, 11/10/17) Reported Meds & Prescriptions Reported Meds & Active Scripts Active No Active Prescriptions or Reported Medications Review of Systems ROS Limitations: Intoxication Physical Exam Narrative GENERAL: Disheveled SKIN: 2 puncture wounds On the volar aspect of the left forearm, old appearing with no surrounding erythema, edema or skin discoloration. Chronic appearing erythema and edema of the distal aspect of both feet with some blistering. HEAD: Atraumatic. Normocephalic. EYES: Pupils equal and round. No injection or drainage. ENT: Moist mucous membranes NECK: Trachea midline. CARDIOVASCULAR: Regular rate and rhythm. No murmur appreciated. RESPIRATORY: Clear to auscultation. Breath sounds equal bilaterally. GASTROINTESTINAL: Abdomen soft, non-tender, nondistended. MUSCULOSKELETAL: No obvious deformities. NEUROLOGICAL: Awake and alert. No obvious cranial nerve deficits. Moving all extremities. PSYCHIATRIC: Appropriate mood and affect; insight and judgment normal. Data Data Last Documented VS Vital Signs Date Time Temp Pulse Resp B/P (MAP) Pulse Ox O2 Delivery O2 Flow Rate FiO2 11/10/17 13:48 98.2 90 18 138/90 (106) 98 Orders Orders Nystatin Powder (Mycostatin Powder) (11/10/17 16:30) [facility] Medical Decision Making Medical Screen Exam Complete: Yes Emergency Medical Condition: Yes Differential Diagnosis acute alcohol intoxication, chronic alcohol intoxication, trench foot, cellulitis, tinea pedis Narrative Course This is a 57 year old male who presents to the emergency department with alcohol intoxication. He has no evidence of trauma on exam. He does report 2 days spent by a snake left forearm demonstrates old puncture wounds but otherwise he has a normal vascular exam and no skin changes. He also has chronic blistering, erythema and edema of his feet which appears to be transferred. Patient's feet were dried, some nystatin powder was added and patient was given dry socks. I think patient can be discharged when sober. Diagnosis Primary Impression: Alcohol intoxication Qualified Codes: F10.920 - Alcohol use, unspecified with intoxication, uncomplicated Additional Impression: Trench foot Qualified Codes: T69.029A - Immersion foot, unspecified foot, initial encounter Patient Instructions: General Instructions Additional Instructions: Follow up with Manuel Coe in regards to psychiatric or substance related issues at: [address] [place] [id number] Med/Other Pt SpecificInfo: No Change to Meds Scripts No Active Prescriptions or Reported Meds Disposition: DISCHARGE HOME Condition: Stable Yumiko Ashley MD Nov 10, 2017 17:12
== END 2017-11-10 20:36 | disposition home or self-care (01) ==
LOC: NEPD 13:44
DX: F10.129 Alcohol abuse with intoxication, unspecified (principal); T69.022A Immersion foot, left foot, initial encounter; T69.021A Immersion foot, right foot, initial encounter; T63.001A Toxic effect of unspecified snake venom, accidental (unintentional), initial encounter; D64.9 Anemia, unspecified; I10 Essential (primary) hypertension; R56.9 Unspecified convulsions; I25.2 Old myocardial infarction; F32.9 Major depressive disorder, single episode, unspecified
CPT/HCPCS: 99281

== ENCOUNTER 2017-12-08 22:48 | Inpatient (IN) | payer SELFPAY ==
[~2017-12-08] VITALS: Ht 182.9 cm; Wt 81.8 kg
[2017-12-08 22:55] VITALS: BP 123/70; PULSE 87; RESP 16; TEMP 98.4; O2SAT 97
[2017-12-08 23:39] VITALS: O2SAT 97
--- NOTE | 2017-12-08 23:41 | PD ---
HPI Chief Complaint: Chest Pain Time Seen by Provider: 22:55 Travel History International Travel<30 days: No Contact w/Intl Traveler<30days: No Traveled to known affect area: No History of Present Illness HPI The patient is a 57 year old female who presents to the [facility] emergency department with a history of chest pain that he reports is been coming and going for the last 3 days. He reports that it is worse when he gets up on his feet moves around. He reports that he had surgery on his feet 3-1/2 weeks ago to remove cysts. He reports that it was done at [facility]. He reports that his primary care physician is Dr. Leal. He denies being on any medications. He denies having any prior history of hypertension, hyperlipidemia, or diabetes mellitus. He does report having history of alcohol intake daily. The patient reports that the pain is in the center of his chest. The patient reports that it is associated with shortness of breath. He reports that the sensation as a pressure sensation that is severe. He denies having any radiation of pain. He denies having any diaphoresis or nausea vomiting. The patient incidentally reports on review of systems otherwise, the patient denies having any known recent fevers, worsening cough or congestion, neck pain, abdominal pain, urinary symptoms, or neurologic symptoms. The patient reports that he has had diarrhea for the last 2 weeks. He reports that he has had at least 10 episodes of diarrhea that is brown in color each day. [facility] Past Medical History Narrative Medical The patient's past medical history is significant for alcohol abuse, tobacco abuse, history of an osteolytic lesion of the right foot, history of cysts of bilateral feet status post resection Anemia: Yes Autoimmune Disease: No Depression: Yes (WITH SUICIDAL IDEATIONS in past) Cancer: No Cardiovascular Problems: Yes Diabetes: No Diminished Hearing: No Gastrointestinal Disorders: Yes (GI BLEED) Genitourinary: No Hiatal Hernia: Yes Hypertension: Yes Immune Disorder: No Implanted Vascular Access Dvce: No Kidney Stones: Yes Musculoskeletal: No Neurologic: Yes Psychiatric: No Reproductive: No Respiratory: No Immunizations Current: Yes Myocardial Infarction: Yes Seizures: Yes (ALCOHOL RELATED) Ulcer: Yes Past Surgical History Narrative Surgical The patient's past surgical history is significant for hernia repair, bilateral foot surgery Abdominal Surgery: Yes (Hernia repair) Other Surgery: Yes (HIATAL HERNIA 1979) Social History Alcohol Use: Yes (6 pack of beer daily) Tobacco Use: Yes (1-1/2 packs per day) Substance Use: No Allergies-Medications (Allergen,Severity, Reaction): Coded Allergies: No Known Allergies (Unverified Adverse Reaction, Unknown, 12/08/17) Reported Meds & Prescriptions Reported Meds & Active Scripts Active No Active Prescriptions or Reported Medications Review of Systems Except as stated in HPI: all other systems reviewed are Neg General / Constitutional: No: Fever Eyes: No: Visual changes HENT: No: Headaches, Congestion Cardiovascular: Positive: Chest Pain or Discomfort, Dyspnea on exertion Respiratory: Positive: Shortness of Breath, No: Cough Gastrointestinal: Positive: Diarrhea, Abdominal Pain, Changes in Bowel Habits, No: Nausea, Vomiting Genitourinary: No: Dysuria Musculoskeletal: No: Pain Skin: No Rash Neurologic: No: Weakness, Focal Abnormalities, Change in Mentation, Slurred Speech, Sensory Disturbance Psychiatric: No: Depression Endocrine: No: Polydipsia Hematologic/Lymphatic: No: Easy Bruising Physical Exam Narrative General: The patient is a well-developed well-nourished male in no acute. Head and Neck exam: Head is normocephalic atraumatic. Eyes: EOMI, pupils are equal round and reactive to light. Nose: Midline septum with pink mucous membranes Mouth: Dentition unremarkable. Moist mucus membranes. Posterior oropharynx is not erythematous. No tonsillar hypertrophy. Uvula midline. Airway patent. Neck: No palpable lymphadenopathy. No nuchal rigidity. No thyromegaly. Cardiovascular: Regular rate and rhythm without murmurs, gallops, or rubs. No pulse deficit to the extremities on simultaneous auscultation and palpation of his radial artery. Lungs: Clear to auscultation bilaterally. No wheezes, rhonchi, or rales. Abdomen: Soft, without tenderness to palpation in all 4 quadrants of the abdomen. No guarding, rebound, or rigidity. Normal bowel sounds are audible. No tenderness on palpation of McBurney's point. Negative Boswell sign. Extremities: No clubbing, cyanosis, or edema. 2+ pulses in all 4 extremities. No calf tenderness on palpation. The patient has postoperative shoes in place bilaterally. Back: No costovertebral angle tenderness to palpation. Neurologic Exam: Grossly nonfocal Skin Exam: No rash noted. Intact skin that is warm and dry. Data Data Last Documented VS Vital Signs Date Time Temp Pulse Resp B/P (MAP) Pulse Ox O2 Delivery O2 Flow Rate FiO2 12/08/17 23:39 97 Room Air 12/08/17 22:55 98.4 87 16 123/70 (87) Orders Orders Electrocardiogram (12/08/17 23:21) Complete Blood Count With Diff (12/08/17 23:21) Comprehensive Metabolic Panel (12/08/17 23:21) Creatine Kinase (Cpk) (12/08/17 23:21) Ckmb (Isoenzyme) Profile (12/08/17 23:21) Troponin I (12/08/17 23:21) B-Type Natriuretic Peptide (12/08/17 23:21) Prothrombin Time / Inr (Pt) (12/08/17 23:21) Act Partial Throm Time (Ptt) (12/08/17 23:21) Lipase (12/08/17 23:21) Chest, Single Ap (12/08/17 23:21) Iv Access Insert/Monitor (12/08/17 23:21) Ecg Monitoring (12/08/17 23:21) Oximetry (12/08/17 23:21) Nitroglycerin 2% Oint (Nitroglycerin 2% (12/09/17 00:30) Sodium Chlorid 0.9% 500 Ml Inj (Ns 500 M (12/09/17 00:30) Famotidine Inj (Pepcid Inj) (12/09/17 00:30) CKMB (12/08/17 23:41) CKMB% (12/08/17 23:41) Sodium Chlorid 0.9% 500 Ml Inj (Ns 500 M (12/09/17 01:15) Ct Abd/Pel W Iv Contrast(Rout) (12/09/17 01:03) Iohexol 350 Inj (Omnipaque 350 Inj) (12/09/17 01:29) Admit Order (Ed Use Only) (12/09/17 02:08) Admit To Inpatient (12/09/17 ) Vital Signs (Adult) Q4H (12/09/17 02:07) Activity Oob Ad Jane (12/09/17 02:07) Gate Technician / Telemetry .CONTINUOUS (12/09/17 02:07) Intake + Output YEYO.QSHIFT (12/09/17 02:07) Diet Heart Healthy (12/09/17 Breakfast) Sodium Chlor 0.9% 1000 Ml Inj (Ns 1000 M (12/09/17 02:07) Sodium Chloride 0.9% Flush (Ns Flush) (12/09/17 02:15) Sodium Chloride 0.9% Flush (Ns Flush) (12/09/17 09:00) Ondansetron Inj (Zofran Inj) (12/09/17 02:15) Comprehensive Metabolic Panel (12/10/17 06:00) Complete Blood Count With Diff (12/10/17 06:00) Creatine Kinase (Cpk) (12/09/17 06:00) Creatine Kinase (Cpk) (12/09/17 12:00) Troponin I (12/09/17 06:00) Troponin I (12/09/17 12:00) Lipase (12/10/17 06:00) Scd Bilateral/Knee High YEYO.BID (12/09/17 02:07) Remy Bilateral/Knee High YEYO.QSHIFT (12/09/17 02:08) Acetaminophen (Tylenol) (12/09/17 02:15) Acetamin-Hydrocod 325-5 Mg ([place] 5-325 (12/09/17 02:15) Morphine Inj (Morphine Inj) (12/09/17 02:15) Docusate Sodium-Senna (Machelle-Colace) (12/09/17 09:00) Magnesium Hydroxide Liq (Milk Of Magnesi (12/09/17 02:15) Sennosides (Senokot) (12/09/17 02:15) Bisacodyl Supp (Dulcolax Supp) (12/09/17 02:15) Lactulose Liq (Lactulose Liq) (12/09/17 02:15) Inpatient Certification (12/09/17 ) Vital Signs (Adult) Q4H (12/09/17 02:07) Bedside Glucose YEYO.CSUGAR (12/09/17 02:07) Intake + Output YEYO.QSHIFT (12/09/17 02:07) Alcohol Withdrawal Asmt-Ciwa Q4HX18 (12/09/17 02:07) ^ Seizure Precautions (12/09/17 02:07) Folic Acid (Folate) (12/09/17 09:00) Thiamine (Vit B1) (Vitamin B1) (12/09/17 09:00) Multivitamins-Minerals Therap (Theragran (12/09/17 09:00) Consult Cm-Etoh Abuse Dc Plan (12/09/17 ) Flumazenil Inj (Romazicon Inj) (12/09/17 02:15) Lorazepam (Ativan) (12/09/17 02:15) Lorazepam Inj (Ativan Inj) (12/09/17 02:15) Lorazepam (Ativan) (12/09/17 02:15) Lorazepam Inj (Ativan Inj) (12/09/17 02:15) Lorazepam Inj (Ativan Inj) (12/09/17 02:15) Lorazepam Inj (Ativan Inj) (12/09/17 02:15) Haloperidol Inj (Haldol Inj) (12/09/17 02:15) Famotidine Inj (Pepcid Inj) (12/09/17 09:00) Labs Laboratory Tests Test 12/08/17 23:41 White Blood Count 5.7 TH/MM3 Red Blood Count 3.97 MIL/MM3 Hemoglobin 12.4 GM/DL Hematocrit 35.8 % Mean Corpuscular Volume 90.2 FL Mean Corpuscular Hemoglobin 31.2 PG Mean Corpuscular Hemoglobin Concent 34.6 % Red Cell Distribution Width 15.4 % Platelet Count 189 TH/MM3 Mean Platelet Volume 7.3 FL Neutrophils (%) (Auto) 56.8 % Lymphocytes (%) (Auto) 28.5 % Monocytes (%) (Auto) 11.3 % Eosinophils (%) (Auto) 2.3 % Basophils (%) (Auto) 1.1 % Neutrophils # (Auto) 3.2 TH/MM3 Lymphocytes # (Auto) 1.6 TH/MM3 Monocytes # (Auto) 0.6 TH/MM3 Eosinophils # (Auto) 0.1 TH/MM3 Basophils # (Auto) 0.1 TH/MM3 CBC Comment DIFF FINAL Differential Comment Prothrombin Time 9.8 SEC Prothromb Time International Ratio 1.0 RATIO Activated Partial Thromboplast Time 28.0 SEC Blood Urea Nitrogen 6 MG/DL Creatinine 0.80 MG/DL Random Glucose 85 MG/DL Total Protein 7.1 GM/DL Albumin 3.5 GM/DL Calcium Level 8.2 MG/DL Alkaline Phosphatase 179 U/L Aspartate Amino Transf (AST/SGOT) 138 U/L Alanine Aminotransferase (ALT/SGPT) 91 U/L Total Bilirubin 0.3 MG/DL Sodium Level 138 MEQ/L Potassium Level 3.6 MEQ/L Chloride Level 102 MEQ/L Carbon Dioxide Level 24.5 MEQ/L Anion Gap 12 MEQ/L Estimat Glomerular Filtration Rate 100 ML/MIN Total Creatine Kinase 1758 U/L Creatine Kinase MB 30.9 NG/ML Creatine Kinase MB % 1.8 % Troponin I LESS THAN 0.02 NG/ML B-Type Natriuretic Peptide 13 PG/ML Lipase 564 U/L MDM Medical Decision Making Medical Screen Exam Complete: Yes Emergency Medical Condition: Yes Medical Record Reviewed: Yes Interpretation(s) Last Impressions Abdomen/Pelvis CT 12/09/17 0103 Signed Impressions: Service Date/Time: Saturday, December 09, 2017 01:30 - CONCLUSION: 1. No acute finding is identified to explain the abdominal pain. 2. There is a compression fracture of L1 that is of uncertain chronicity. However, it is new since the 05/08/2017 examination. 3. Nonacute findings include severe hepatic steatosis and mild to moderate atherosclerotic disease. Orion Nelson MD Chest X-Ray 12/08/17 3296 Signed Impressions: Service Date/Time: Friday, December 08, 2017 23:47 - CONCLUSION: No acute cardiopulmonary abnormality is identified. Orion Nelson MD Differential Diagnosis Acute coronary syndrome, versus acid reflux, versus anxiety disorder, versus withdrawal syndrome, versus pneumonia, versus pneumothorax Narrative Course During the course of the patient's emergency department visit, the patient's history, examination, and differential diagnosis were reviewed with the patient. The patient was placed on a tanbark laborer with oximetry and frequent blood pressure monitoring. The patient had IV access obtained and blood work sent for analysis. The patient had an EKG done on arrival that shows a sinus rhythm heart rate of 81, QRS duration 104 ms, QTC 309 ms, no acute ST segment elevation. The patient was initially provided nitroglycerin 1 inch to the chest wall as the patient was given nitroglycerin sublingual every 5 minutes 2 by ambulance services and 324 mg of aspirin p.o. by ambulance services. The patient was also given famotidine 20 mg IV. The patient's laboratory studies were reviewed and remarkable for a white count of 5.7, hemoglobin 12.4, platelets 189 with 11.3 monocytes, CMP is remarkable for BUN of 6, calcium 8.2, AST 138, ALT 91, alk phos 179, CPK is 1758 meeting criteria for rhabdomyolysis with an MB percent of 1.8, troponin I less than 0.02 , lipase 564, BNP 13. PT 9.8, PTT 28, urinalysis shows concentrated urine otherwise unremarkable. Radiology studies were reviewed and remarkable for a chest x-ray that shows no acute cardiopulmonary disease. CT scan of the abdomen and pelvis shows no findings to explain the patient's abdominal pain. There is a compression fracture of L1 that is of uncertain chronicity, however it is new since the 2016 exam. Nonacute findings include severe hepatic steatosis and mild to moderate atherosclerotic disease. The patient's results were discussed with the patient, including the plan of care. I explained that further testing and/ or monitoring is indicated based on the patient's history, examination, and/ or laboratory findings. Therefore, I recommended admission for additional evaluation. The patient expressed understanding and was agreeable with this plan. The patient was admitted to the hospital in [-] condition and sent to a bed under the care of [-]. Physician Communication Physician Communication The patient's case including history, pertinent physical examination findings, and laboratory studies were discussed with Dr. Bush. It was agreed that the patient would be admitted to the [facility] Hospitalist service. Diagnosis Primary Impression: Rhabdomyolysis Qualified Codes: M62.82 - Rhabdomyolysis Additional Impressions: Pancreatitis Qualified Codes: K85.20 - Alcohol induced acute pancreatitis without necrosis or infection Diarrhea Qualified Codes: R19.7 - Diarrhea, unspecified Admitting Information Admitting Physician Requests: Admit Scripts No Active Prescriptions or Reported Meds Bobbi Cerrato MD Dec 08, 2017 23:41
[2017-12-09] VITALS (7 sets, daily range): BP systolic 113–143; BP diastolic 62–83; PULSE 71–95; RESP 14–20; TEMP 98–98.8; O2SAT 96–98
[2017-12-09 00:07] LABS: AUTOMATED NEUTROPHIL # 3.2 TH/MM3 (1.8-7.7); BASOPHIL # 0.1 TH/MM3 (0-0.2); BASOPHIL % 1.1 % (0.0-2.0); EOSINOPHIL # 0.1 TH/MM3 (0-0.4); EOSINOPHIL % 2.3 % (0.0-4.0); HEMATOCRIT 35.8 % (39.0-51.0); HEMOGLOBIN 12.4 GM/DL (13.0-17.0); LYMPH % 28.5 % (9.0-44.0); LYMPHOCYTE # 1.6 TH/MM3 (1.0-4.8); MEAN CELL VOLUME 90.2 FL (80.0-100.0); MEAN CORPUSCULAR HEMOGLOBIN 31.2 PG (27.0-34.0); MEAN CORPUSCULAR HGB CONC 34.6 % (32.0-36.0); MEAN PLATELET VOLUME 7.3 FL (7.0-11.0); MONO % 11.3 % (0.0-8.0); MONOCYTE # 0.6 TH/MM3 (0-0.9); NEUT % 56.8 % (16.0-70.0); PLATELET COUNT 189 TH/MM3 (150-450); RED BLOOD COUNT 3.97 MIL/MM3 (4.50-5.90); RED CELL DISTRIBUTION WIDTH 15.4 % (11.6-17.2); WHITE BLOOD COUNT 5.7 TH/MM3 (4.0-11.0)
--- NOTE | 2017-12-09 00:13 | RADRPT ---
EXAM DATE/TIME: 12/08/2017 23:47 [facility] COMPARISON: CHEST SINGLE AP, June 16, 2017, 20:06. INDICATIONS : chest pain MEDICAL HISTORY : Possible left lung cancer. SURGICAL HISTORY : None. ENCOUNTER: Initial ACUITY: 3 days PAIN SCORE: 9/10 LOCATION: Bilateral chest FINDINGS: Portable AP view of the chest demonstrates a normal-sized cardiac silhouette. No effusion, consolidat ion, or pneumothorax is visualized. The bones and soft tissues demonstrate no acute abnormality. EKG lines overlie the patient. CONCLUSION: No acute cardiopulmonary abnormality is identified. Orion Nelson MD on December 09, 2017 at 0:10 Board Certified Radiologist. This report was verified electronically.
[2017-12-09 00:19] LABS: PROTHROMBIN TIME - PATIENT 9.8 SEC (9.8-11.6)
[2017-12-09 00:22] LABS: ALBUMIN 3.5 GM/DL (3.4-5.0); AST (GOT) 138 U/L (15-37); BICARBONATE 24.5 MEQ/L (21.0-32.0); BLOOD UREA NITROGEN 6 MG/DL (7-18); CALCIUM 8.2 MG/DL (8.5-10.1); CHLORIDE 102 MEQ/L (98-107); GLOMERULAR FILTRATION RATE 100 ML/MIN (>89); GLUCOSE,RANDOM 85 MG/DL (74-106); SODIUM (NA) 138 MEQ/L (136-145)
[2017-12-09] MEDS ORDERED: FAMOTIDINE 20 MG/2 ML VIAL IV PUSH SCH ×2 (00:30→09:00)
[2017-12-09] MEDS ORDERED: SODIUM CHLORID 0.9% 500 ML INJ 500 ML IV ONE ×2 (00:30→01:15)
[2017-12-09] MEDS ORDERED: NITROGLYCERIN 2% OINT 1 GM PACKET TOPICAL ONE (00:30)
[2017-12-09 00:36] LABS: ALKALINE PHOSPHATASE 179 U/L (45-117); ALT (GPT) 91 U/L (12-78); TOTAL BILIRUBIN ADULT 0.3 MG/DL (0.2-1.0); TOTAL PROTEIN 7.1 GM/DL (6.4-8.2); TROPONIN I LESS THAN 0.02 NG/ML (0.02-0.05)
[2017-12-09] MEDS ORDERED: IOHEXOL 350 MG/ML 10 ML VIAL (for RAD DIAG) IVCONTRAST ONE (01:29)
--- NOTE | 2017-12-09 01:53 | RADRPT ---
EXAM DATE/TIME: 12/09/2017 01:30 [facility] COMPARISON: CTA RUNOFF W 3D RECON, May 08, 2017, 20:43. INDICATIONS : Abdominal pain. IV CONTRAST: 71 cc Omnipaque 350 (iohexol) IV ORAL CONTRAST: No oral contrast ingested. RADIATION DOSE: 7.79 CTDIvol (mGy) MEDICAL HISTORY : Myocardial infarction. Hypertension. Renal calculi. SURGICAL HISTORY : Hiatal hernia repair ENCOUNTER: Initial ACUITY: 1 day PAIN SCALE: 6/10 LOCATION: abdomen TECHNIQUE: Volumetric scanning of the abdomen and pelvis was performed. Using automated exposure control and ad justment of the mA and/or kV according to patient size, radiation dose was kept as low as reasonably achievable to obtain optimal diagnostic quality images. DICOM format image data is available electro nically for review and comparison. FINDINGS: LOWER LUNGS: The visualized lower lungs are clear. LIVER: Abnormal low density without lesion. There is no dilation of the biliary tree. No calcified gallsto guillermina. SPLEEN: Normal size without lesion. PANCREAS: Within normal limits. KIDNEYS: Normal in size and shape. There is no mass, stone or hydronephrosis. ADRENAL GLANDS: Within normal limits. VASCULAR: There is no aortic aneurysm. There is mild to moderate atherosclerotic disease. BOWEL/MESENTERY: The stomach, small bowel, and colon demonstrate no acute abnormality. There is no free intraperitone al air or fluid. The appendix is normal. ABDOMINAL WALL: Within normal limits. RETROPERITONEUM: There is no lymphadenopathy. BLADDER: No wall thickening or mass. REPRODUCTIVE: Within normal limits. INGUINAL: There is no lymphadenopathy or hernia. MUSCULOSKELETAL: There is a compression fracture of the L1 vertebral body of uncertain chronicity. Degenerative change s are present throughout the lumbar spine. CONCLUSION: 1. No acute finding is identified to explain the abdominal pain. 2. There is a compression fracture of L1 that is of uncertain chronicity. However, it is new since e 05/08/2017 examination. 3. Nonacute findings include severe hepatic steatosis and mild to moderate atherosclerotic disease. Orion Nelson MD on December 09, 2017 at 1:46 Board Certified Radiologist. This report was verified electronically.
[2017-12-09] MEDS ORDERED: LORazepam 2 MG/ML VIAL IV PUSH PRN ×4 (02:15)
[2017-12-09] MEDS ORDERED: ONDANSETRON HCL 4 MG/2 ML VIAL IVP PRN (02:15)
[2017-12-09] MEDS ORDERED: HALOPERIDOL LACTATE 5 MG/ML AMP IM PRN (02:15)
[2017-12-09] MEDS ORDERED: FLUMAZENIL 0.5 MG/5 ML VIAL IV PUSH PRN (02:15)
[2017-12-09] MEDS ORDERED: SODIUM CHLORIDE 0.9% FLUSH 10 ML FLUSH IV FLUSH PRN (02:15)
[2017-12-09] MEDS ORDERED: LORazepam 2 MG TAB PO PRN (02:15)
[2017-12-09] MEDS ORDERED: BISACODYL 10 MG SUPP RECTAL PRN (02:15)
[2017-12-09] MEDS ORDERED: SENNOSIDES 8.6 MG TAB PO PRN (02:15)
[2017-12-09] MEDS ORDERED: ACETAMINOPHEN 325 MG TAB PO PRN (02:15)
[2017-12-09] MEDS ORDERED: MAGNESIUM HYDROXIDE SUSP 30 ML CUP PO PRN (02:15)
[2017-12-09] MEDS ORDERED: MORPHINE SULFATE 2 MG/ML INJ IV PUSH PRN (02:15)
[2017-12-09] MEDS ORDERED: LACTULOSE SYRUP 20 GM/30 ML CUP PO PRN (02:15)
--- NOTE | 2017-12-09 03:21 | HHI.HP ---
[facility] Unknown Admission Diagnosis Rhabdomyolysis, cp r/o ACS Diagnoses: (1) Chest pain Diagnosis: Principal (2) Pancreatitis Diagnosis: Principal (3) Rhabdomyolysis Diagnosis: Principal (4) Alcohol abuse Diagnosis: Principal Travel History International Travel<30 Days: No Contact w/Intl Traveler <30 Da: No Traveled to Known Affected Are: No History of Present Illness This is a 57-year-old male with PMH of Alcohol Abuse and Tobacco Abuse who presented to the ER with complaints of chest pain x3 days. States pain is substernal, sharp, 7/10, non-radiating, worse w/ movement. Does admit to heavy alcohol ingestion daily, no nausea or hematemesis. On arrival, CBC at baseline , hemoglobin 12.4. Chemistry essentially unremarkable. CPK 1758. Troponin negative. Lipase 564. INR 1.0. CXR with no acute findings. CT Abdomen/ Pelvis with no acute findings, L1 compression fracture of uncertain chronicity. No complaints of back pain. Review of Systems Except as stated in HPI: all other systems reviewed are Neg ROS: 14 point review of systems otherwise negative. Past Family Social History Past Medical History PMH: Alcohol Abuse and Tobacco Abuse Past Surgical History PAST SURGICAL HISTORY: Hiatal Hernia, Bilateral Foot Surgery Allergies: Coded Allergies: No Known Allergies (Unverified Adverse Reaction, Unknown, 12/08/17) Family History PAST FAMILY HISTORY: Reviewed. No h/o DM or CAD Social History PAST SOCIAL HISTORY: Drinks 6 pack of beer daily. Smokes 1-1.5ppd. Negative for drugs. Physical Exam Vital Signs Vital Signs Date Time Temp Pulse Resp B/P (MAP) Pulse Ox O2 Delivery O2 Flow Rate FiO2 12/09/17 02:54 12/09/17 02:19 92 16 113/71 (85) 98 Room Air 12/08/17 23:39 97 Room Air 12/08/17 23:00 97 12/08/17 22:55 98.4 87 16 123/70 (87) 97 Physical Exam PE: GENERAL: Middle-aged male in no acute distress. HEENT: PERRLA, EOMI. No scleral icterus or conjunctival pallor. No lid lag or facial droop. CARDIOVASCULAR: Regular rate and rhythm. No obvious murmurs to auscultation. No chest tenderness to palpation. RESPIRATORY: No obvious rhonchi or wheezing. Clear to auscultation. Breath sounds equal bilaterally. GASTROINTESTINAL: Abdomen soft, mild epigastric tenderness to palpation, nondistended. BS normal. MUSCULOSKELETAL: Extremities without clubbing, cyanosis, or edema. No obvious deformities. NEUROLOGICAL: Awake, alert and oriented x4. No focal neurologic deficits. Moving both upper and lower extremities spontaneously. Laboratory Laboratory Tests Test 12/08/17 23:41 White Blood Count 5.7 Red Blood Count 3.97 Hemoglobin 12.4 Hematocrit 35.8 Mean Corpuscular Volume 90.2 Mean Corpuscular Hemoglobin 31.2 Mean Corpuscular Hemoglobin Concent 34.6 Red Cell Distribution Width 15.4 Platelet Count 189 Mean Platelet Volume 7.3 Neutrophils (%) (Auto) 56.8 Lymphocytes (%) (Auto) 28.5 Monocytes (%) (Auto) 11.3 Eosinophils (%) (Auto) 2.3 Basophils (%) (Auto) 1.1 Neutrophils # (Auto) 3.2 Lymphocytes # (Auto) 1.6 Monocytes # (Auto) 0.6 Eosinophils # (Auto) 0.1 Basophils # (Auto) 0.1 CBC Comment DIFF FINAL Differential Comment Prothrombin Time 9.8 Prothromb Time International Ratio 1.0 Activated Partial Thromboplast Time 28.0 Blood Urea Nitrogen 6 Creatinine 0.80 Random Glucose 85 Total Protein 7.1 Albumin 3.5 Calcium Level 8.2 Alkaline Phosphatase 179 Aspartate Amino Transf (AST/SGOT) 138 Alanine Aminotransferase (ALT/SGPT) 91 Total Bilirubin 0.3 Sodium Level 138 Potassium Level 3.6 Chloride Level 102 Carbon Dioxide Level 24.5 Anion Gap 12 Estimat Glomerular Filtration Rate 100 Total Creatine Kinase 1758 Creatine Kinase MB 30.9 Creatine Kinase MB % 1.8 Troponin I LESS THAN 0.02 B-Type Natriuretic Peptide 13 Lipase 564 Result Diagram: 12/08/17 2341 12/08/172340 Caprini VTE Risk Assessment Caprini VTE Risk Assessment: No/Low Risk (score <= 1) Caprini Risk Assessment Model Point Value = 1 Point Value = 2 Point Value = 3 Point Value = 5 Age 41-60 Minor surgery BMI > 25 kg/m2 Swollen legs Varicose veins or History of unexplained or recurrent spontaneous Oral contraceptives or hormone replacement Sepsis (< 1 month) Serious lung disease, including pneumonia (< 1 month) Abnormal pulmonary function Acute myocardial infarction Congestive heart failure (< 1 month) History of inflammatory bowel disease Medical patient at bed rest Age 61-74 Arthroscopic surgery Major open surgery (> 45 min) Laparoscopic surgery (> 45 min) Malignancy Confined to bed (> 72 hours) Immobilizing plaster cast Central venous access Age >= 75 History of VTE Family history of VTE Factor V Leiden Prothrombin [id number] Lupus anticoagulant Anticardiolipin antibodies Elevated serum homocysteine Heparin-induced thrombocytopenia Other congenital or acquired thrombophilia Stroke (< 1 month) Elective arthroplasty Hip, pelvis, or leg fracture Acute spinal cord injury (< 1 month) Prophylaxis Regimen Total Risk Factor Score Risk Level Prophylaxis Regimen 0-1 Low Early ambulation 2 Moderate Order ONE of the following: *Sequential Compression Device (SCD) *Heparin 5000 units SQ BID 3-4 Higher Order ONE of the following medications: *Heparin 5000 units SQ TID *Enoxaparin/Lovenox 40 mg SQ daily (WT < 150 kg, CrCl > 30 mL/min) *Enoxaparin/Lovenox 30 mg SQ daily (WT < 150 kg, CrCl > 10-29 mL/min) *Enoxaparin/Lovenox 30 mg SQ BID (WT < 150 kg, CrCl > 30 mL/min) AND/OR *Sequential Compression Device (SCD) 5 or more Highest Order ONE of the following medications: *Heparin 5000 units SQ TID (Preferred with Epidurals) *Enoxaparin/Lovenox 40 mg SQ daily (WT < 150 kg, CrCl > 30 mL/min) *Enoxaparin/Lovenox 30 mg SQ daily (WT < 150 kg, CrCl > 10-29 mL/min) *Enoxaparin/Lovenox 30 mg SQ BID (WT < 150 kg, CrCl > 30 mL/min) AND *Sequential Compression Device (SCD) Assessment and Plan Problem List: (1) Chest pain ICD Code: R07.9 - Chest pain, unspecified (2) Pancreatitis ICD Code: K85.90 - Acute pancreatitis without necrosis or infection, unspecified (3) Rhabdomyolysis ICD Code: M62.82 - Rhabdomyolysis (4) Alcohol abuse ICD Code: F10.10 - Alcohol abuse, uncomplicated Status: Acute Assessment and Plan A/P: 1. Chest Pain: likely secondary to pancreatitis, initial trop negative, EKG w / no acute ischemia. R/o ACS. Telemetry. Check serial cardiac enzymes, NTG/ Morphine prn as needed. 2. Pancreatitis: Lipase 564, CT Abd/Pelvis w/ no acute findings, +epigastric tenderness on exam. Pepcid IV, IVF, repeat Lipase, analgesics/antiemetics as needed. 3. Rhabdomyolysis: CPK 1758, Check U/a, IVF for hydration, repeat CPK for trend. 4. Alcohol Abuse: Drinks 6-pack beer daily, high risk for withdrawal. CIWA, Seizure Precautions, MVT/Thiamine/Folate replacement. 5. DVT Prophylaxis: SCD/Teds. 6. Social work for d/c planning as needed. 7. Case discussed w/ ER physician at length, labs/records/imaging reviewed by me. Physician Certification 2 Midnight Certification Type: Admission for Inpatient Services Order for Inpatient Services The services are ordered in accordance with Medicare regulations or non- Medicare payer requirements, as applicable. In the case of services not specified as inpatient-only, they are appropriately provided as inpatient services in accordance with the 2-midnight benchmark. Estimated LOS (days): 2 days is the estimated time the patient will need to remain in the hospital, assuming treatment plan goals are met and no additional complications. Post-Hospital Plan: Not yet determined Rebecca Bush MD Dec 09, 2017 03:21
[2017-12-09] MEDS: ACETAMINOPHEN/HYDROcodone 325 MG/5 MG TAB PO PRN ×4 (03:47→22:17)
[2017-12-09] MEDS: SODIUM CHLOR 0.9% 1000 ML INJ 1,000 ML IV SCH ×3 (03:47→20:41)
[2017-12-09 04:09] LABS: BILIRUBIN, URINE NEG (NEG); BLOOD, URINE TRACE (NEG); GLUCOSE,URINE NEG (NEG); KETONE, URINE NEG (NEG); NITRITE,URINE NEG (NEG); PH, URINE 6.5 (5.0-8.5); SQUAMOUS EPITHELIAL CELL URINE <1 /hpf (0-5); URINE COLOR YELLOW (YELLW/STRAW); URINE LEUKOCYTE ESTERASE NEG (NEG)
[2017-12-09 05:51] LABS: TROPONIN I LESS THAN 0.02 NG/ML (0.02-0.05)
[2017-12-09] MEDS: SODIUM CHLORIDE 0.9% FLUSH 10 ML FLUSH IV FLUSH SCH ×2 (07:58→21:52)
[2017-12-09] MEDS: MULTIVITAMINS/MINERALS THERAPEUTIC TAB PO SCH (07:59)
[2017-12-09] MEDS: DOCUSATE SODIUM 50 MG/SENNA 8.6 MG TAB PO SCH ×2 (07:59→21:00)
[2017-12-09] MEDS: FOLIC ACID 1 MG TAB PO SCH (07:59)
[2017-12-09] MEDS: THIAMINE HCL 100 MG TAB PO SCH (07:59)
--- NOTE | 2017-12-09 12:30 | HHI.PR ---
Subjective Remarks Follow-up visit alcohol abuse, tobacco abuse, chest pain, abdominal pain 3 days. Patient stated exhibited daily. Reports the pain has improved and states it is possibly related from his alcohol use. Patient states that he feels "lousy" because he is going through withdrawals from alcohol right now. Decrease anxiety, increased tremors felt. Otherwise, continues to have some midepigastric pain that has improved. Denies shortness of breath or dyspnea, headaches, palpitations. Denies any nausea, vomiting or diarrhea. Denies dysuria. Objective Vitals Vital Signs Date Time Temp Pulse Resp B/P (MAP) Pulse Ox O2 Delivery O2 Flow Rate FiO2 12/09/17 12:00 98.7 89 18 128/83 (98) 97 12/09/17 09:01 18 12/09/17 08:00 98.6 95 18 127/62 (83) 97 12/09/17 05:24 89 12/09/17 03:34 98.1 80 18 132/70 (90) 97 12/09/17 02:54 12/09/17 02:19 92 16 113/71 (85) 98 Room Air 12/08/17 23:39 97 Room Air 12/08/17 23:00 97 12/08/17 22:55 98.4 87 16 123/70 (87) 97 I/O 12/08/17 12/08/17 12/08/17 12/09/17 12/09/17 12/09/17 07:00 15:00 23:00 07:00 15:00 23:00 Intake Total 1850 ml Balance 1850 ml Intake Oral 600 ml IV Total 1250 ml # Voids 2 1 # Bowel Movements 1 Result Diagram: 12/08/17 2341 12/08/17 2341 Imaging Last Impressions Abdomen/Pelvis CT 12/09/17 0103 Signed Impressions: Service Date/Time: Saturday, December 09, 2017 01:30 - CONCLUSION: 1. No acute finding is identified to explain the abdominal pain. 2. There is a compression fracture of L1 that is of uncertain chronicity. However, it is new since the 05/08/2017 examination. 3. Nonacute findings include severe hepatic steatosis and mild to moderate atherosclerotic disease. Orion Nelson MD Chest X-Ray 12/08/17 1781 Signed Impressions: Service Date/Time: Friday, December 08, 2017 23:47 - CONCLUSION: No acute cardiopulmonary abnormality is identified. Orion Nelson MD Objective Remarks GENERAL: This is a well-nourished, well-developed patient, in no apparent distress. SKIN: Warm and dry. Facial flushing, reports that exposure HEENT: Normocephalic. Pupils equal round and reactive. Nose without bleeding. Airway patent. NECK: Trachea midline. CARDIOVASCULAR: Regular rate and rhythm without murmurs, gallops, or rubs. RESPIRATORY: Clear to auscultation. Breath sounds equal bilaterally. No wheezes , rales, or rhonchi. GASTROINTESTINAL: Abdomen soft, nondistended. Bowel Sounds normoactive x4. Mild mid epigastric tenderness to palpation MUSCULOSKELETAL: Extremities without clubbing, cyanosis, or edema. NEUROLOGICAL: Awake and alert. Oriented to time, place, person. No focal neuro deficit. Moves all extremities. Normal speech. A/P Problem List: (1) Chest pain ICD Code: R07.9 - Chest pain, unspecified (2) Pancreatitis ICD Code: K85.90 - Acute pancreatitis without necrosis or infection, unspecified (3) Rhabdomyolysis ICD Code: M62.82 - Rhabdomyolysis (4) Alcohol abuse ICD Code: F10.10 - Alcohol abuse, uncomplicated Status: Acute Assessment and Plan 57-year-old male with PMH of Alcohol Abuse and Tobacco Abuse who presented to the ER with complaints of chest pain Chest Pain Rule out ACS Pancreatitis, acute -Likely secondary to Pancreatitis, ETOH induced -EKG reviewed with the acute ischemia ST changes. Troponins 2 negative -IV fluids for hydration -Monitor labs -Patient able to tolerate p.o. diet. -Pantoprazole, Maalox. He received famotidine IV Rhabdomyolysis -Possibly secondary to dehydration, EtOH -IV fluids for hydration EtOH Abuse Tobacco Abuse -Reports withdrawal symptoms -[facility] protocol - Nicotine Patch -Thiamine, folic acid Bilateral Foot wounds, sarah -Soaks, apply Lotrimin cream -Right great toe with open wound bacitracin, dry drsg DVT SCDs, early ambulation Discharge Planning Plan discharge home if clinically improved. Savage Goldman Dec 09, 2017 12:30
--- NOTE | 2017-12-09 13:28 | EKG ---
Date Performed: 12/08/2017 Time Performed: 22:57:35 PTAGE: 57 years EKG: Sinus rhythm NORMAL ECG PREVIOUS TRACING 04/26/17 Since the prior tracing, there has been no significant change DOCTOR: Wayne Kwong Interpretating Date/Time 12/09/2017 13:27:56
[2017-12-09 14:20] LABS: TROPONIN I LESS THAN 0.02 NG/ML (0.02-0.05)
[2017-12-09] MEDS: PANTOPRAZOLE SOD 40 MG DELAYED RELEASE TAB PO SCH (15:00)
[2017-12-09] MEDS ORDERED: ALUMINUM/MAGNESIUM/SIMETH 30 ML CUP PO PRN (15:00)
[2017-12-09] MEDS ORDERED: ALUMINUM/MAGNESIUM/SIMETH 30 ML CUP PO ONE (15:00)
[2017-12-09] MEDS: LORazepam 1 MG TAB PO PRN ×2 (15:12→22:16)
[2017-12-09] MEDS: CLOTRIMAZOLE 1% CREAM 15 GM TOPICAL SCH (21:52)
[2017-12-09] MEDS: BACITRACIN TOP OINT 15 GM TUBE TOPICAL SCH (21:53)
[2017-12-10 00:05] VITALS: PULSE 77
[2017-12-10] MEDS: LORazepam 1 MG TAB PO PRN ×4 (01:57→14:33)
[2017-12-10] MEDS: ACETAMINOPHEN/HYDROcodone 325 MG/5 MG TAB PO PRN ×6 (01:57→23:50)
[2017-12-10] MEDS: SODIUM CHLOR 0.9% 1000 ML INJ 1,000 ML IV SCH ×3 (03:21→16:15)
[2017-12-10 04:58] VITALS: BP 128/76; PULSE 71; RESP 16; TEMP 98.3; O2SAT 100
[2017-12-10 06:52] LABS: AUTOMATED NEUTROPHIL # 2.4 TH/MM3 (1.8-7.7); EOSINOPHIL # 0.2 TH/MM3 (0-0.4); EOSINOPHIL % 5.5 % (0.0-4.0); HEMATOCRIT 35.2 % (39.0-51.0); LYMPHOCYTE # 0.9 TH/MM3 (1.0-4.8); MEAN CELL VOLUME 91.7 FL (80.0-100.0); MEAN CORPUSCULAR HEMOGLOBIN 31.1 PG (27.0-34.0); MEAN CORPUSCULAR HGB CONC 33.9 % (32.0-36.0); MEAN PLATELET VOLUME 7.3 FL (7.0-11.0); MONO % 9.2 % (0.0-8.0); MONOCYTE # 0.4 TH/MM3 (0-0.9); NEUT % 61.3 % (16.0-70.0); PLATELET COUNT 159 TH/MM3 (150-450); RED BLOOD COUNT 3.84 MIL/MM3 (4.50-5.90); RED CELL DISTRIBUTION WIDTH 15.6 % (11.6-17.2); WHITE BLOOD COUNT 3.9 TH/MM3 (4.0-11.0)
[2017-12-10 07:22] LABS: ALBUMIN 3.1 GM/DL (3.4-5.0); AST (GOT) 87 U/L (15-37); BLOOD UREA NITROGEN 9 MG/DL (7-18); CALCIUM 8.7 MG/DL (8.5-10.1); CHLORIDE 100 MEQ/L (98-107); CREATININE 0.89 MG/DL (0.60-1.30); GLOMERULAR FILTRATION RATE 89 ML/MIN (>89); GLUCOSE,RANDOM 74 MG/DL (74-106); SODIUM (NA) 136 MEQ/L (136-145)
[2017-12-10 07:23] LABS: ALT (GPT) 71 U/L (12-78)
[2017-12-10 07:25] LABS: ALKALINE PHOSPHATASE 156 U/L (45-117); TOTAL BILIRUBIN ADULT 0.6 MG/DL (0.2-1.0); TOTAL PROTEIN 6.4 GM/DL (6.4-8.2)
[2017-12-10 08:00] VITALS: BP 106/56; PULSE 69; RESP 16; TEMP 98.1; O2SAT 98
[2017-12-10] MEDS: THIAMINE HCL 100 MG TAB PO SCH (09:00)
[2017-12-10] MEDS: PANTOPRAZOLE SOD 40 MG DELAYED RELEASE TAB PO SCH (10:12)
[2017-12-10] MEDS: DOCUSATE SODIUM 50 MG/SENNA 8.6 MG TAB PO SCH ×2 (10:12→20:16)
[2017-12-10] MEDS: SODIUM CHLORIDE 0.9% FLUSH 10 ML FLUSH IV FLUSH SCH ×2 (10:12→20:16)
[2017-12-10] MEDS: FOLIC ACID 1 MG TAB PO SCH (10:12)
[2017-12-10] MEDS: MULTIVITAMINS/MINERALS THERAPEUTIC TAB PO SCH (10:12)
[2017-12-10] MEDS: CLOTRIMAZOLE 1% CREAM 15 GM TOPICAL SCH ×2 (10:13→20:17)
[2017-12-10] MEDS: BACITRACIN TOP OINT 15 GM TUBE TOPICAL SCH ×2 (10:14→20:17)
[2017-12-10 12:00] VITALS: BP 117/84; PULSE 64; RESP 16; TEMP 97.8; O2SAT 97
--- NOTE | 2017-12-10 14:02 | HHI.PR ---
Subjective Remarks Follow-up pancreatitis. Improving pain tolerating diet. States he is homeless and has been walking all day prior to admission. Discussed with nursing Objective Vitals Vital Signs Date Time Temp Pulse Resp B/P (MAP) Pulse Ox O2 Delivery O2 Flow Rate FiO2 12/10/17 12:00 97.8 64 16 117/84 (95) 97 12/10/17 11:01 18 12/10/17 08:00 98.1 69 16 106/56 (73) 98 12/10/17 04:58 98.3 71 16 128/76 (93) 100 12/10/17 00:05 77 12/09/17 20:33 98.0 71 14 123/70 (87) 96 12/09/17 16:00 98.8 93 20 143/83 (103) 98 I/O 12/09/17 12/09/17 12/09/17 12/10/17 12/10/17 12/10/17 07:00 15:00 23:00 07:00 15:00 23:00 Intake Total 1850 ml 840 ml 1500 ml Output Total 1550 ml Balance 1850 ml -710 ml 1500 ml Intake Oral 600 ml 840 ml 1500 ml IV Total 1250 ml Output Urine Total 1550 ml # Voids 2 1 6 2 # Bowel Movements 1 3 Result Diagram: 12/10/17 0540 12/10/17 0540 Imaging Last Impressions Abdomen/Pelvis CT 12/09/17 0103 Signed Impressions: Service Date/Time: Saturday, December 09, 2017 01:30 - CONCLUSION: 1. No acute finding is identified to explain the abdominal pain. 2. There is a compression fracture of L1 that is of uncertain chronicity. However, it is new since the 05/08/2017 examination. 3. Nonacute findings include severe hepatic steatosis and mild to moderate atherosclerotic disease. Orion Nelson MD Chest X-Ray 12/08/17 8382 Signed Impressions: Service Date/Time: Friday, December 08, 2017 23:47 - CONCLUSION: No acute cardiopulmonary abnormality is identified. Orion Nelson MD Objective Remarks GENERAL: This is a well-nourished, well-developed patient, in no apparent distress. SKIN: Warm and dry. Fissures noted b/l plantar CARDIOVASCULAR: Regular rate and rhythm without murmurs, gallops, or rubs. RESPIRATORY: Clear to auscultation. Breath sounds equal bilaterally. No wheezes , rales, or rhonchi. GASTROINTESTINAL: Abdomen soft, nondistended. Bowel Sounds normoactive x4. Mild mid epigastric tenderness to palpation MUSCULOSKELETAL: Extremities without clubbing, cyanosis, or edema. NEUROLOGICAL: Awake and alert. Oriented to time, place, person. No focal neuro deficit. Moves all extremities. Normal speech. Procedures none A/P Problem List: (1) Chest pain ICD Code: R07.9 - Chest pain, unspecified (2) Pancreatitis ICD Code: K85.90 - Acute pancreatitis without necrosis or infection, unspecified (3) Rhabdomyolysis ICD Code: M62.82 - Rhabdomyolysis (4) Alcohol abuse ICD Code: F10.10 - Alcohol abuse, uncomplicated Status: Acute Assessment and Plan 57-year-old male with PMH of Alcohol Abuse and Tobacco Abuse who presented to the ER with complaints of chest pain Acute pancreatitis likely secondary to alcohol. Improving tolerating diet. Atypical chest pain. Ruled out for [place]. This is secondary to above. CT shows atherosclerotic disease. Recommended stress test outpatient Rhabdomyolysis secondary to prolonged walking. Improving continue IV hydration EtOH and Tobacco Abuse. Improved withdrawal symptoms. Continue CIWA protocol. Continue nicotine patch. Counseled Transaminitis secondary to above. CT of the abdomen pelvis with hepatic steatosis. In improving. Monitor Bilateral Foot wounds, sarah. Wound care and antimicrobials DVT SCDs, early ambulation Discharge Planning Possible discharge in the morning Tyson Gomez MD Dec 10, 2017 14:02
--- NOTE | 2017-12-10 15:15 | PD.WCN.NOT ---
Wound Consult Description: Received consult from JOSEFINA Monahan for wound management of R foot Communicated with: REBEKA Elena pod CDU and JOSEFINA Monahan Recommendation: Please apply shaving cream to bilateral feet and toes and cover with warm moist wash cloth. Allow to soak for 5 minutes before removing shaving cream with warm water and wash cloth. Cleanse fissures to plantar surface intertriginous areas at first, second and third metatarsal heads with normal saline and pat dry. Apply Bacitracin as ordered to open wounds and cover with dry dressing. Change daily Additional Information: Patient seen on CDU H pod around 1500 for evaluation of wound management of R foot. Patient noted with bilateral feet that are dirty with hyperkeratotic tissue and and peeling skin. Applied shaving cream to bilateral feet and covered with warm moist cloth. Left in place for 5 minutes. Removed shaving cream and with warm water and wash cloths removed some softened scales. Patient is noted with 3 fissures to intertriginous areas on plantar first, second and third metatarsal heads. Largest fissure measuring ~0.1cm x ~2cm x~0.1cm. Wound beds are noted with clean pink tissue. Wound beds appear dry without active drainage or odor. Cleansed fissures with normal saline and pat dry.Applied bacitracin as ordered and covered open wounds with dry dressing. Xiao Gibson [facility] Dec 10, 2017 15:15
[2017-12-10 17:00] VITALS: BP 126/75; PULSE 65; RESP 16; TEMP 97.8; O2SAT 100
--- NOTE | 2017-12-10 18:53 | EKG ---
Date Performed: 12/09/2017 Time Performed: 11:57:26 PTAGE: 57 years EKG: Sinus rhythm NORMAL ECG Since the prior tracing, there has been no significant change PREVIOUS TRACING : 12/08/2017 22.57 DOCTOR: Tim Cerrato Interpretating Date/Time 12/10/2017 18:50:26
[2017-12-10 20:07] VITALS: BP 136/90; PULSE 66; RESP 16; TEMP 98.2; O2SAT 98
[2017-12-11 01:41] VITALS: BP 114/59; PULSE 66; RESP 14; TEMP 98.4; O2SAT 99
[2017-12-11 04:00] VITALS: PULSE 61
[2017-12-11] MEDS: ACETAMINOPHEN/HYDROcodone 325 MG/5 MG TAB PO PRN ×2 (04:09→08:59)
[2017-12-11 07:24] LABS: AUTOMATED NEUTROPHIL # 2.6 TH/MM3 (1.8-7.7); BASOPHIL % 0.7 % (0.0-2.0); EOSINOPHIL # 0.3 TH/MM3 (0-0.4); EOSINOPHIL % 6.2 % (0.0-4.0); HEMATOCRIT 37.7 % (39.0-51.0); LYMPH % 21.8 % (9.0-44.0); LYMPHOCYTE # 0.9 TH/MM3 (1.0-4.8); MEAN CELL VOLUME 91.4 FL (80.0-100.0); MEAN CORPUSCULAR HEMOGLOBIN 31.5 PG (27.0-34.0); MEAN CORPUSCULAR HGB CONC 34.5 % (32.0-36.0); MEAN PLATELET VOLUME 7.8 FL (7.0-11.0); MONO % 9.3 % (0.0-8.0); MONOCYTE # 0.4 TH/MM3 (0-0.9); PLATELET COUNT 167 TH/MM3 (150-450); RED BLOOD COUNT 4.13 MIL/MM3 (4.50-5.90); RED CELL DISTRIBUTION WIDTH 15.3 % (11.6-17.2); WHITE BLOOD COUNT 4.2 TH/MM3 (4.0-11.0)
[2017-12-11 07:54] LABS: ALBUMIN 3.2 GM/DL (3.4-5.0); ALT (GPT) 77 U/L (12-78); AST (GOT) 85 U/L (15-37); BLOOD UREA NITROGEN 8 MG/DL (7-18); CALCIUM 8.7 MG/DL (8.5-10.1); CHLORIDE 101 MEQ/L (98-107); CREATININE 0.77 MG/DL (0.60-1.30); GLOMERULAR FILTRATION RATE 105 ML/MIN (>89); GLUCOSE,RANDOM 78 MG/DL (74-106); SODIUM (NA) 137 MEQ/L (136-145)
[2017-12-11 07:57] LABS: ALKALINE PHOSPHATASE 142 U/L (45-117); TOTAL BILIRUBIN ADULT 0.4 MG/DL (0.2-1.0)
[2017-12-11 08:04] VITALS: BP 139/77; PULSE 69; RESP 18; TEMP 98.1; O2SAT 100
[2017-12-11 08:12] VITALS: BP 129/60; PULSE 93; RESP 20; TEMP 98; O2SAT 92
[2017-12-11] MEDS: MULTIVITAMINS/MINERALS THERAPEUTIC TAB PO SCH (08:57)
[2017-12-11] MEDS: PANTOPRAZOLE SOD 40 MG DELAYED RELEASE TAB PO SCH (08:57)
[2017-12-11] MEDS: THIAMINE HCL 100 MG TAB PO SCH (08:58)
[2017-12-11] MEDS: FOLIC ACID 1 MG TAB PO SCH (08:58)
[2017-12-11] MEDS: SODIUM CHLORIDE 0.9% FLUSH 10 ML FLUSH IV FLUSH SCH (08:59)
[2017-12-11] MEDS: DOCUSATE SODIUM 50 MG/SENNA 8.6 MG TAB PO SCH (09:00)
[2017-12-11] MEDS: SODIUM CHLOR 0.9% 1000 ML INJ 1,000 ML IV SCH (10:13)
[2017-12-11] MEDS ORDERED: THIA100 PO (11:42)
[2017-12-11] MEDS ORDERED: QC B500O TOPICAL (11:42)
[2017-12-11] MEDS ORDERED: CLOT1CRE8 TOPICAL (11:42)
--- NOTE | 2017-12-11 11:44 | HHI.DCPOC ---
Discharge Care Plan Diagnosis: (1) Rhabdomyolysis (2) Pancreatitis (3) Alcohol abuse (4) Fissure in skin of foot Goals to Promote Your Health * To prevent worsening of your condition and complications * To maintain your health at the optimal level Directions to Meet Your Goals Take your medications as prescribed Follow your dietary instruction Follow activity as directed Keep your appointments as scheduled Take your immunizations and boosters as scheduled If your symptoms worsen call your PCP, if no PCP go to Urgent Care Center or Emergency Room Smoking is Dangerous to Your Health. Avoid second hand smoke Call the 24-hour hour crisis hotline for domestic abuse at Lavern Monahan PA-C Dec 11, 2017 11:44 am
--- NOTE | 2017-12-11 11:49 | HHI.PR ---
Objective Vitals Vital Signs Date Time Temp Pulse Resp B/P (MAP) Pulse Ox O2 Delivery O2 Flow Rate FiO2 12/11/17 08:04 98.1 69 18 139/77 (97) 100 12/11/17 04:00 61 12/11/17 01:41 98.4 66 14 114/59 (77) 99 12/10/17 20:07 98.2 66 16 136/90 (105) 98 12/10/17 17:00 97.8 65 16 126/75 (92) 100 12/10/17 15:53 20 12/10/17 12:00 97.8 64 16 117/84 (95) 97 I/O 12/10/17 12/10/17 12/10/17 12/11/17 12/11/17 12/11/17 06:59 14:59 22:59 06:59 14:59 22:59 Intake Total 1500 ml 1220 ml 1200 ml Output Total 1050 ml 750 ml Balance 1500 ml 170 ml 450 ml Intake Oral 1500 ml 1220 ml 1200 ml Output Urine Total 1050 ml 750 ml # Voids 2 22 Result Diagram: 12/11/17 0638 12/11/17 0638 Objective Remarks GENERAL: This is a well-nourished, well-developed patient, in no apparent distress. SKIN: Warm and dry. Fissures noted b/l plantar CARDIOVASCULAR: Regular rate and rhythm without murmurs, gallops, or rubs. RESPIRATORY: Clear to auscultation. Breath sounds equal bilaterally. No wheezes , rales, or rhonchi. GASTROINTESTINAL: Abdomen soft, nondistended. Bowel Sounds normoactive x4. Mild mid epigastric tenderness to palpation MUSCULOSKELETAL: Extremities without clubbing, cyanosis, or edema. NEUROLOGICAL: Awake and alert. Oriented to time, place, person. No focal neuro deficit. Moves all extremities. Normal speech. Procedures none A/P Problem List: (1) Chest pain ICD Code: R07.9 - Chest pain, unspecified (2) Pancreatitis ICD Code: K85.90 - Acute pancreatitis without necrosis or infection, unspecified (3) Rhabdomyolysis ICD Code: M62.82 - Rhabdomyolysis (4) Alcohol abuse ICD Code: F10.10 - Alcohol abuse, uncomplicated Status: Acute Assessment and Plan 57-year-old male with PMH of Alcohol Abuse and Tobacco Abuse who presented to the ER with complaints of chest pain Acute pancreatitis likely secondary to alcohol. Improving tolerating diet. Atypical chest pain. Ruled out for [place]. This is secondary to above. CT shows atherosclerotic disease. Recommended stress test outpatient Rhabdomyolysis secondary to prolonged walking. Improving continue IV hydration EtOH and Tobacco Abuse. Improved withdrawal symptoms. Continue CIWA protocol. Continue nicotine patch. Counseled Transaminitis secondary to above. CT of the abdomen pelvis with hepatic steatosis. In improving. Monitor Bilateral Foot wounds, sarah. Wound care and antimicrobials DVT SCDs, early ambulation Discharge Planning Possible discharge in the morning Tyson Gomez MD Dec 11, 2017 11:49
--- NOTE | 2017-12-11 11:50 | HHI.DS ---
Discharge Summary Admission Date Dec 09, 2017 at 02:10 Discharge Date: Dec 11, 2017 Admitting Diagnosis Rhabdomyolysis, cp r/o ACS (1) Chest pain ICD Code: R07.9 - Chest pain, unspecified Diagnosis: Principal (2) Pancreatitis ICD Code: K85.90 - Acute pancreatitis without necrosis or infection, unspecified Diagnosis: Principal (3) Rhabdomyolysis ICD Code: M62.82 - Rhabdomyolysis Diagnosis: Principal (4) Alcohol abuse ICD Code: F10.10 - Alcohol abuse, uncomplicated Diagnosis: Principal Status: Acute Procedures none Brief History - From Admission This is a 57-year-old male with PMH of Alcohol Abuse and Tobacco Abuse who presented to the ER with complaints of chest pain x3 days. States pain is substernal, sharp, 7/10, non-radiating, worse w/ movement. Does admit to heavy alcohol ingestion daily, no nausea or hematemesis. On arrival, CBC at baseline , hemoglobin 12.4. Chemistry essentially unremarkable. CPK 1758. Troponin negative. Lipase 564. INR 1.0. CXR with no acute findings. CT Abdomen/ Pelvis with no acute findings, L1 compression fracture of uncertain chronicity. No complaints of back pain. CBC/BMP: 12/11/17 0638 12/11/17 0638 Significant Findings Laboratory Tests Test 12/08/17 23:41 12/09/17 03:52 12/09/17 04:23 12/09/17 13:36 Red Blood Count 3.97 MIL/MM3 (4.50-5.90) Hemoglobin 12.4 GM/DL (13.0-17.0) Hematocrit 35.8 % (39.0-51.0) Monocytes (%) (Auto) 11.3 % (0.0-8.0) Blood Urea Nitrogen 6 MG/DL (7-18) Calcium Level 8.2 MG/DL (8.5-10.1) Alkaline Phosphatase 179 U/L (45-117) Aspartate Amino Transf (AST/SGOT) 138 U/L (15-37) Alanine Aminotransferase (ALT/SGPT) 91 U/L (12-78) Total Creatine Kinase 1758 U/L (39-308) 1438 U/L (39-308) 1216 U/L (39-308) Creatine Kinase MB 30.9 NG/ML (0.5-3.6) 20.7 NG/ML (0.5-3.6) 14.5 NG/ML (0.5-3.6) Troponin I LESS THAN 0.02 NG/ML LESS THAN 0.02 NG/ML LESS THAN 0.02 NG/ML Lipase 564 U/L (73-393) Urine Specific [place] 1.044 (1.002-1.035) Urine Occult Blood TRACE (NEG) Test 12/10/17 05:40 12/11/17 06:38 White Blood Count 3.9 TH/MM3 (4.0-11.0) Red Blood Count 3.84 MIL/MM3 (4.50-5.90) 4.13 MIL/MM3 (4.50-5.90) Hemoglobin 12.0 GM/DL (13.0-17.0) Hematocrit 35.2 % (39.0-51.0) 37.7 % (39.0-51.0) Monocytes (%) (Auto) 9.2 % (0.0-8.0) 9.3 % (0.0-8.0) Eosinophils (%) (Auto) 5.5 % (0.0-4.0) 6.2 % (0.0-4.0) Lymphocytes # (Auto) 0.9 TH/MM3 (1.0-4.8) 0.9 TH/MM3 (1.0-4.8) Albumin 3.1 GM/DL (3.4-5.0) 3.2 GM/DL (3.4-5.0) Alkaline Phosphatase 156 U/L (45-117) 142 U/L (45-117) Aspartate Amino Transf (AST/SGOT) 87 U/L (15-37) 85 U/L (15-37) Total Creatine Kinase 636 U/L (39-308) 319 U/L (39-308) Creatine Kinase MB 6.8 NG/ML (0.5-3.6) 3.9 NG/ML (0.5-3.6) Imaging Last Impressions Abdomen/Pelvis CT 12/09/17 0103 Signed Impressions: Service Date/Time: Saturday, December 09, 2017 01:30 - CONCLUSION: 1. No acute finding is identified to explain the abdominal pain. 2. There is a compression fracture of L1 that is of uncertain chronicity. However, it is new since the 05/08/2017 examination. 3. Nonacute findings include severe hepatic steatosis and mild to moderate atherosclerotic disease. Orion Nelson MD Chest X-Ray 12/08/17 2992 Signed Impressions: Service Date/Time: Friday, December 08, 2017 23:47 - CONCLUSION: No acute cardiopulmonary abnormality is identified. Orion Nelson MD PE at Discharge GENERAL: This is a well-nourished, well-developed patient, in no apparent distress. SKIN: Warm and dry. Fissures noted b/l plantar CARDIOVASCULAR: Regular rate and rhythm without murmurs, gallops, or rubs. RESPIRATORY: Clear to auscultation. Breath sounds equal bilaterally. No wheezes , rales, or rhonchi. GASTROINTESTINAL: Abdomen soft, nondistended. Bowel Sounds normoactive x4. Mild mid epigastric tenderness to palpation MUSCULOSKELETAL: Extremities without clubbing, cyanosis, or edema. NEUROLOGICAL: Awake and alert. Oriented to time, place, person. No focal neuro deficit. Moves all extremities. Normal speech. Hospital Course 57-year-old male with PMH of Alcohol Abuse and Tobacco Abuse who presented to the ER with complaints of chest pain Acute pancreatitis likely secondary to alcohol. Resolved tolerating diet. Atypical chest pain. Ruled out for IA. This is secondary to above. CT shows atherosclerotic disease. Negative stress test in March 2017 Rhabdomyolysis secondary to prolonged walking. Resolving status post IV hydration EtOH and Tobacco Abuse. Improved withdrawal symptoms. Continue CIWA protocol. Continue nicotine patch. Counseled Transaminitis secondary to above. CT of the abdomen pelvis with hepatic steatosis. Improving. Monitor Bilateral Foot wounds, sarah. Stable. Wound care and antimicrobials DVT SCDs, early ambulation Pt Condition on Discharge: Stable Discharge Disposition: Discharge Home Discharge Time: > 30 minutes Discharge Instructions DIET: Follow Instructions for: Heart Healthy Diet Activities you can perform: Regular-No Restrictions Follow up Referrals: PCP Follow-up - 1 Week with [facility] New Medications: Bacitracin (Topical) (Qc Bacitracin) 500 Unit/Gram Oin 1 APPLIC TOPICAL Q12HR for Infection, #1 TUBE 1 Refill Apply to feet. Clotrimazole Topical (Clotrimazole AF Topical) 1% Cream 1 APPLIC TOPICAL Q12HR for Infection for 14 Days, #1 TUBE Thiamine HCl (Gnp Vitamin B-1) 100 Mg Tab 100 MG PO DAILY for Alcohol Detox, #30 TAB Tyson Gomez MD Dec 11, 2017 11:50
[2017-12-11 12:14] VITALS: BP 109/61; PULSE 78; RESP 20; TEMP 98.1; O2SAT 98
== END 2017-12-11 14:31 | disposition home or self-care (01) | DRG 557 ==
LOC: NEPC 22:48 → NEDA 12-09 02:10 → NEPHCDU 12-09 03:17
PROVIDERS: ADMIT Internal Medicine; ATTEND Internal Medicine
DX: M62.82 Rhabdomyolysis (principal); K85.20 Alcohol induced acute pancreatitis without necrosis or infection; K76.0 Fatty (change of) liver, not elsewhere classified; M48.56XA Collapsed vertebra, not elsewhere classified, lumbar region, initial encounter for fracture; S91.302A Unspecified open wound, left foot, initial encounter; I10 Essential (primary) hypertension; R19.7 Diarrhea, unspecified; I25.2 Old myocardial infarction; I25.10 Atherosclerotic heart disease of native coronary artery without angina pectoris; S91.101A Unspecified open wound of right great toe without damage to nail, initial encounter; S91.104A Unspecified open wound of right lesser toe(s) without damage to nail, initial encounter; R23.4 Changes in skin texture; F10.10 Alcohol abuse, uncomplicated; F32.9 Major depressive disorder, single episode, unspecified; Z59.0 Homelessness; Z72.0 Tobacco use
CPT/HCPCS: 71045; 74177; 80053; 81001; 82550; 82552; 82948; 83690; 83880; 84484; 85025; 85610; 85730; 93005; 96361; 96374; J7030; J7040; Q9967

== ENCOUNTER 2017-12-11 23:47 | Emergency (ER) | payer SELFPAY ==
[~2017-12-11] VITALS: Ht 182.9 cm; Wt 81.8 kg
[~2017-12-11 23:47] MED LIST changes: -BACT800T5 PO; -CEPH-460 PO; -CICL0.773 TOPICAL; +CLOT1CRE8 TOPICAL; +QC B500O TOPICAL; +THIA100 PO
[2017-12-11 23:57] VITALS: BP 105/80; PULSE 90; RESP 18; TEMP 98.7; O2SAT 97
[2017-12-12 00:01] VITALS: RESP 18; O2SAT 97
[2017-12-12 00:21] LABS: BASOPHIL % 0.7 % (0.0-2.0); EOSINOPHIL # 0.3 TH/MM3 (0-0.4); EOSINOPHIL % 4.5 % (0.0-4.0); HEMATOCRIT 39.3 % (39.0-51.0); HEMOGLOBIN 13.3 GM/DL (13.0-17.0); LYMPH % 29.8 % (9.0-44.0); LYMPHOCYTE # 1.7 TH/MM3 (1.0-4.8); MEAN CELL VOLUME 91.2 FL (80.0-100.0); MEAN CORPUSCULAR HEMOGLOBIN 30.8 PG (27.0-34.0); MEAN CORPUSCULAR HGB CONC 33.8 % (32.0-36.0); MEAN PLATELET VOLUME 7.5 FL (7.0-11.0); MONOCYTE # 0.6 TH/MM3 (0-0.9); PLATELET COUNT 211 TH/MM3 (150-450); RED BLOOD COUNT 4.31 MIL/MM3 (4.50-5.90); RED CELL DISTRIBUTION WIDTH 15.6 % (11.6-17.2); WHITE BLOOD COUNT 5.7 TH/MM3 (4.0-11.0)
[2017-12-12 00:31] LABS: CHLORIDE 96 MEQ/L (98-107); SODIUM (NA) 132 MEQ/L (136-145)
[2017-12-12 00:34] LABS: BICARBONATE 27.6 MEQ/L (21.0-32.0); BLOOD UREA NITROGEN 6 MG/DL (7-18); CALCIUM 8.3 MG/DL (8.5-10.1); GLUCOSE,RANDOM 98 MG/DL (74-106)
--- NOTE | 2017-12-12 00:36 | RADRPT ---
EXAM DATE/TIME: 12/12/2017 00:11 [place] COMPARISON: CHEST SINGLE AP, December 08, 2017, 23:47. INDICATIONS : Chest pain starting today MEDICAL HISTORY : None. SURGICAL HISTORY : None. ENCOUNTER: Initial ACUITY: 1 day PAIN SCORE: 9/10 LOCATION: Midline chest FINDINGS: AP and lateral views of the chest demonstrate a normal-sized cardiac silhouette. There is no effusion , consolidation, or pneumothorax. The bones and soft tissues demonstrate no acute abnormality. EKG li guillermina overlie the patient. CONCLUSION: No acute cardiopulmonary abnormality is identified. Orion Nelson MD on December 12, 2017 at 0:34 Board Certified Radiologist. This report was verified electronically.
[2017-12-12 00:37] LABS: CREATININE 0.85 MG/DL (0.60-1.30); GLOMERULAR FILTRATION RATE 94 ML/MIN (>89)
[2017-12-12 00:42] LABS: TROPONIN I LESS THAN 0.02 NG/ML (0.02-0.05)
[2017-12-12 01:00] VITALS: BP 108/72; PULSE 78; RESP 18; O2SAT 98
--- NOTE | 2017-12-12 01:20 | PD ---
HPI Chief Complaint: Chest Pain Time Seen by Provider: 01:06 Travel History International Travel<30 days: No Contact w/Intl Traveler<30days: No Traveled to known affect area: No History of Present Illness HPI The patient is a 57-year-old alcoholic, well-known to this emergency department for his visits regarding alcohol intoxication and occasional chest pain who complains of chest pain. He admits to 3 beers tonight. He smokes 1 pack a day. Chest pain is been going on for 4 hours and is in the lower sternal border. The chest pain is constant and he describes it as a pressure. He states he does have nausea, shortness of breath but no diaphoresis and he has radiation down the left arm. He has never had a stress test. PFSH Past Medical History Anemia: Yes Autoimmune Disease: No Depression: Yes (WITH SUICIDAL IDEATIONS in past) Cancer: No Cardiovascular Problems: Yes Diabetes: No Diminished Hearing: No Gastrointestinal Disorders: Yes (GI BLEED) Genitourinary: No Hiatal Hernia: Yes Hypertension: Yes Immune Disorder: No Implanted Vascular Access Dvce: No Kidney Stones: Yes Musculoskeletal: No Neurologic: Yes Psychiatric: No Reproductive: No Respiratory: No Immunizations Current: Yes Myocardial Infarction: Yes Seizures: Yes (ALCOHOL RELATED) Ulcer: Yes Tetanus Vaccination: < 5 Years Influenza Vaccination: No Past Surgical History Abdominal Surgery: Yes (Hernia repair) Other Surgery: Yes (HIATAL HERNIA 1979) Social History Alcohol Use: Yes (6 pack of beer daily) Tobacco Use: Yes (1-1/2 packs per day) Substance Use: No Allergies-Medications (Allergen,Severity, Reaction): Coded Allergies: No Known Allergies (Unverified Adverse Reaction, Unknown, 12/08/17) Reported Meds & Prescriptions Reported Meds & Active Scripts Active Gnp Vitamin B-1 (Thiamine HCl) 100 Mg Tab 100 Mg PO DAILY Clotrimazole AF Topical (Clotrimazole) 1% Cream 1 Applic TOPICAL Q12HR 14 Days Qc Bacitracin (Bacitracin (Topical)) 500 Unit/Gram Oin 1 Applic TOPICAL Q12HR Apply to feet. Review of Systems ROS Limitations: Intoxication Except as stated in HPI: all other systems reviewed are Neg Physical Exam Exam Limitations: Intoxication Narrative GENERAL: The patient is alert, oriented 3, smells strongly of beer and does appear clinically intoxicated. He curses occasionally and is only somewhat cooperative. His vital signs are normal. SKIN: Focused skin assessment warm/dry. HEAD: Atraumatic. Normocephalic. EYES: Pupils equal and round. No scleral icterus. No injection or drainage. ENT: No nasal bleeding or discharge. Mucous membranes pink and moist. NECK: Trachea midline. No JVD. There is no meningismus present. CARDIOVASCULAR: Regular rate and rhythm. No murmur appreciated. I cannot reproduce the patient's pain by pressing on the chest wall. RESPIRATORY: No accessory muscle use. Clear to auscultation. Breath sounds equal bilaterally. GASTROINTESTINAL: Abdomen soft, non-tender, nondistended. Hepatic and splenic margins not palpable. MUSCULOSKELETAL: No obvious deformities. No clubbing. No cyanosis. No edema. NEUROLOGICAL: Awake and alert. No obvious cranial nerve deficits. Motor grossly within normal limits. Normal speech. PSYCHIATRIC: The patient appears alcohol intoxicated; insight and judgment fair. Data Data Last Documented VS Vital Signs Date Time Temp Pulse Resp B/P (MAP) Pulse Ox O2 Delivery O2 Flow Rate FiO2 12/12/17 01:00 78 18 108/72 (84) 98 Room Air 12/11/17 23:57 98.7 Orders Orders Electrocardiogram (12/11/17 23:55) Complete Blood Count With Diff (12/11/17 23:55) Basic Metabolic Panel (Bmp) (12/11/17 23:55) Ckmb (Isoenzyme) Profile (12/11/17 23:55) Troponin I (12/11/17 23:55) Iv Access Insert/Monitor (12/11/17 23:55) Ecg Monitoring (12/11/17 23:55) Oxygen Administration (12/11/17 23:55) Oximetry (12/11/17 23:55) Chest, Pa & Lat (12/11/17 ) Drug Screen, Random Urine (12/11/17 23:56) Alcohol (Ethanol) (12/11/17 23:55) CKMB (12/12/17 00:00) CKMB% (12/12/17 00:00) Labs Laboratory Tests Test 12/12/17 00:00 White Blood Count 5.7 TH/MM3 Red Blood Count 4.31 MIL/MM3 Hemoglobin 13.3 GM/DL Hematocrit 39.3 % Mean Corpuscular Volume 91.2 FL Mean Corpuscular Hemoglobin 30.8 PG Mean Corpuscular Hemoglobin Concent 33.8 % Red Cell Distribution Width 15.6 % Platelet Count 211 TH/MM3 Mean Platelet Volume 7.5 FL Neutrophils (%) (Auto) 55.0 % Lymphocytes (%) (Auto) 29.8 % Monocytes (%) (Auto) 10.0 % Eosinophils (%) (Auto) 4.5 % Basophils (%) (Auto) 0.7 % Neutrophils # (Auto) 3.0 TH/MM3 Lymphocytes # (Auto) 1.7 TH/MM3 Monocytes # (Auto) 0.6 TH/MM3 Eosinophils # (Auto) 0.3 TH/MM3 Basophils # (Auto) 0.0 TH/MM3 CBC Comment DIFF FINAL Differential Comment Blood Urea Nitrogen 6 MG/DL Creatinine 0.85 MG/DL Random Glucose 98 MG/DL Calcium Level 8.3 MG/DL Sodium Level 132 MEQ/L Potassium Level 3.4 MEQ/L Chloride Level 96 MEQ/L Carbon Dioxide Level 27.6 MEQ/L Anion Gap 8 MEQ/L Estimat Glomerular Filtration Rate 94 ML/MIN Total Creatine Kinase 539 U/L Creatine Kinase MB 10.8 NG/ML Creatine Kinase MB % 2.0 % Troponin I LESS THAN 0.02 NG/ML Ethyl Alcohol Level 291 MG/DL MDM Medical Decision Making Medical Screen Exam Complete: Yes Emergency Medical Condition: Yes Medical Record Reviewed: Yes Interpretation(s) The EKG shows sinus rhythm with a rate of [address] elevation or depression. The complete metabolic profile shows a calcium of 8.3, sodium 132, potassium 3.4 with CK 539 and CK-MB 10.8 with a percentage CK-MB of only 2.0. The troponin I is normal. The alcohol level is 291. Differential Diagnosis Alcohol intoxication, acute coronary syndrome-unlikely, atypical chest pain, chest pain etiology undetermined Narrative Course The patient has acute alcohol intoxication. He has chest pain etiology undetermined. He states he wants to stay in the emergency department until morning and then leave. He does not want a stress test. Diagnosis Primary Impression: Alcohol intoxication Additional Impression: Chest pain of unknown etiology Admitting Information Admitting Physician Requests: Observation Additional Instructions: It is necessary to quit alcohol. Alcohol is eventually going to kill you. Follow-up with [facility] if you need help. Disposition: 01 DISCHARGE HOME Condition: Stable Nir Castillo MD Dec 12, 2017 01:20
[2017-12-12 02:00] VITALS: BP 111/67; PULSE 74; RESP 16; O2SAT 100
[2017-12-12 04:03] VITALS: BP 114/72
--- NOTE | 2017-12-12 21:13 | EKG ---
Date Performed: 12/11/2017 Time Performed: 23:53:02 PTAGE: 57 years EKG: Sinus rhythm INCOMPLETE RIGHT BUNDLE BRANCH BLOCK BORDERLINE ECG PREVIOUS TRACING : 12/09/2017 11.57 No significant change from previous tracing noted. DOCTOR: Amilcar Ellington Interpretating Date/Time 12/12/2017 21:13:04
== END 2017-12-12 04:06 | disposition home or self-care (01) ==
LOC: PHED 23:47
DX: F10.129 Alcohol abuse with intoxication, unspecified (principal); Y90.8 Blood alcohol level of 240 mg/100 ml or more; R07.9 Chest pain, unspecified; F17.210 Nicotine dependence, cigarettes, uncomplicated; I10 Essential (primary) hypertension; I25.2 Old myocardial infarction; I45.10 Unspecified right bundle-branch block
CPT/HCPCS: 71046; 80048; 80307; 82550; 82552; 84484; 85025; 93005; 99285

== ENCOUNTER 2017-12-15 13:07 | Emergency (ER) | payer OTHER ==
[~2017-12-15] VITALS: Ht 172.7 cm; Wt 72.0 kg
[2017-12-15 18:16] LABS: AUTOMATED NEUTROPHIL # 1.4 TH/MM3 (1.8-7.7); BASOPHIL # 0.1 TH/MM3 (0-0.2); BASOPHIL % 2.6 % (0.0-2.0); EOSINOPHIL # 0.2 TH/MM3 (0-0.4); EOSINOPHIL % 4.6 % (0.0-4.0); HEMATOCRIT 37.2 % (39.0-51.0); HEMOGLOBIN 12.7 GM/DL (13.0-17.0); LYMPH % 40.8 % (9.0-44.0); LYMPHOCYTE # 1.6 TH/MM3 (1.0-4.8); MEAN CELL VOLUME 92.3 FL (80.0-100.0); MEAN CORPUSCULAR HEMOGLOBIN 31.5 PG (27.0-34.0); MEAN CORPUSCULAR HGB CONC 34.1 % (32.0-36.0); MEAN PLATELET VOLUME 6.7 FL (7.0-11.0); MONO % 15.6 % (0.0-8.0); MONOCYTE # 0.6 TH/MM3 (0-0.9); NEUT % 36.4 % (16.0-70.0); PLATELET COUNT 294 TH/MM3 (150-450); RED BLOOD COUNT 4.04 MIL/MM3 (4.50-5.90); RED CELL DISTRIBUTION WIDTH 16.3 % (11.6-17.2); WHITE BLOOD COUNT 3.9 TH/MM3 (4.0-11.0)
[2017-12-15 18:48] LABS: ALBUMIN 3.6 GM/DL (3.4-5.0); ALKALINE PHOSPHATASE 139 U/L (45-117); ALT (GPT) 147 U/L (12-78); AST (GOT) 138 U/L (15-37); BICARBONATE 25.8 MEQ/L (21.0-32.0); BLOOD UREA NITROGEN 5 MG/DL (7-18); CHLORIDE 107 MEQ/L (98-107); CREATININE 0.76 MG/DL (0.60-1.30); GLOMERULAR FILTRATION RATE 106 ML/MIN (>89); GLUCOSE,RANDOM 77 MG/DL (74-106); SODIUM (NA) 141 MEQ/L (136-145); TOTAL BILIRUBIN ADULT 0.3 MG/DL (0.2-1.0); TOTAL PROTEIN 7.5 GM/DL (6.4-8.2)
[2017-12-15 22:44] VITALS: BP 134/72; PULSE 95; RESP 18; TEMP 98.4; O2SAT 96
--- NOTE | 2017-12-16 02:21 | PD ---
HPI Chief Complaint: Alcohol/Drug Intoxication Time Seen by Provider: 02:19 Travel History International Travel<30 days: No Contact w/Intl Traveler<30days: No Traveled to known affect area: No History of Present Illness HPI 57-year-old male presents under [place] act initiated by the police. The patient was found sleeping on the [employer] bus intoxicated. The patient has no medical complaints at this time and is now sober. He has been in this institution for 13 hours. He denies any injuries. PFSH Past Medical History Anemia: Yes Autoimmune Disease: No Depression: Yes (WITH SUICIDAL IDEATIONS in past) Cancer: No Cardiovascular Problems: Yes Diabetes: No Diminished Hearing: No Gastrointestinal Disorders: Yes (GI BLEED) Genitourinary: No Hiatal Hernia: Yes Hypertension: Yes Immune Disorder: No Implanted Vascular Access Dvce: No Kidney Stones: Yes Musculoskeletal: No Neurologic: Yes Psychiatric: No Reproductive: No Respiratory: No Immunizations Current: Yes Myocardial Infarction: Yes Seizures: Yes (ALCOHOL RELATED) Ulcer: Yes Past Surgical History Abdominal Surgery: Yes (Hernia repair) Other Surgery: Yes (HIATAL HERNIA 1979) Social History Alcohol Use: Yes (6 pack of beer daily) Tobacco Use: Yes (1-1/2 packs per day) Substance Use: No Allergies-Medications (Allergen,Severity, Reaction): Coded Allergies: No Known Allergies (Unverified Adverse Reaction, Unknown, 12/08/17) Reported Meds & Prescriptions Reported Meds & Active Scripts Active Gnp Vitamin B-1 (Thiamine HCl) 100 Mg Tab 100 Mg PO DAILY Clotrimazole AF Topical (Clotrimazole) 1% Cream 1 Applic TOPICAL Q12HR 14 Days Qc Bacitracin (Bacitracin (Topical)) 500 Unit/Gram Oin 1 Applic TOPICAL Q12HR Apply to feet. Review of Systems Except as stated in HPI: all other systems reviewed are Neg Physical Exam Narrative GENERAL: Well-nourished male in no acute distress SKIN: Warm and dry. HEAD: Atraumatic. Normocephalic. EYES: Pupils equal and round. No scleral icterus. No injection or drainage. ENT: No nasal bleeding or discharge. Mucous membranes pink and moist. NECK: Trachea midline. No JVD. CARDIOVASCULAR: Regular rate and rhythm. No murmur appreciated. RESPIRATORY: No accessory muscle use. Clear to auscultation. Breath sounds equal bilaterally. GASTROINTESTINAL: Abdomen soft, non-tender, nondistended. Hepatic and splenic margins not palpable. MUSCULOSKELETAL: No obvious deformities. No clubbing. No cyanosis. No edema. NEUROLOGICAL: Awake and alert. No obvious cranial nerve deficits. Motor grossly within normal limits. Normal speech. PSYCHIATRIC: Appropriate mood and affect; insight and judgment normal. Data Data Last Documented VS Vital Signs Date Time Temp Pulse Resp B/P (MAP) Pulse Ox O2 Delivery O2 Flow Rate FiO2 12/15/17 22:44 98.4 95 18 134/72 (92) 96 Room Air Orders Orders Complete Blood Count With Diff (12/15/17 15:15) Comprehensive Metabolic Panel (12/15/17 15:15) Thyroid Stimulating Hormone (12/15/17 15:15) Psych Screen (12/15/17 15:15) Drug Screen, Random Urine (12/15/17 15:15) Alcohol (Ethanol) (12/15/17 15:15) Labs Laboratory Tests Test 12/15/17 17:45 12/15/17 21:45 White Blood Count 3.9 TH/MM3 Red Blood Count 4.04 MIL/MM3 Hemoglobin 12.7 GM/DL Hematocrit 37.2 % Mean Corpuscular Volume 92.3 FL Mean Corpuscular Hemoglobin 31.5 PG Mean Corpuscular Hemoglobin Concent 34.1 % Red Cell Distribution Width 16.3 % Platelet Count 294 TH/MM3 Mean Platelet Volume 6.7 FL Neutrophils (%) (Auto) 36.4 % Lymphocytes (%) (Auto) 40.8 % Monocytes (%) (Auto) 15.6 % Eosinophils (%) (Auto) 4.6 % Basophils (%) (Auto) 2.6 % Neutrophils # (Auto) 1.4 TH/MM3 Lymphocytes # (Auto) 1.6 TH/MM3 Monocytes # (Auto) 0.6 TH/MM3 Eosinophils # (Auto) 0.2 TH/MM3 Basophils # (Auto) 0.1 TH/MM3 CBC Comment DIFF FINAL Differential Comment Blood Urea Nitrogen 5 MG/DL Creatinine 0.76 MG/DL Random Glucose 77 MG/DL Total Protein 7.5 GM/DL Albumin 3.6 GM/DL Calcium Level 8.0 MG/DL Alkaline Phosphatase 139 U/L Aspartate Amino Transf (AST/SGOT) 138 U/L Alanine Aminotransferase (ALT/SGPT) 147 U/L Total Bilirubin 0.3 MG/DL Sodium Level 141 MEQ/L Potassium Level 4.3 MEQ/L Chloride Level 107 MEQ/L Carbon Dioxide Level 25.8 MEQ/L Anion Gap 8 MEQ/L Estimat Glomerular Filtration Rate 106 ML/MIN Thyroid Stimulating Hormone 3rd Gen 2.100 uIU/ML Ethyl Alcohol Level 342 MG/DL Urine Opiates Screen NEG Urine Barbiturates Screen NEG Urine Amphetamines Screen NEG Urine Benzodiazepines Screen NEG Urine Cocaine Screen NEG Urine Cannabinoids Screen NEG MDM Medical Decision Making Medical Screen Exam Complete: Yes Emergency Medical Condition: Yes Medical Record Reviewed: Yes Differential Diagnosis Alcohol intoxication, closed head injury, polysubstance abuse Narrative Course AST 138, ALT 147 consistent with history of chronic alcohol abuse. Alcohol level was 342 at 5:45 PM. Diagnosis Primary Impression: Alcohol abuse Med/Other Pt SpecificInfo: No Change to Meds Disposition: 01 DISCHARGE HOME Condition: Stable Rafi Bettencourt Dec 16, 2017 02:21
== END 2017-12-16 04:24 | disposition home or self-care (01) ==
LOC: NEDAMB 13:07
DX: F10.129 Alcohol abuse with intoxication, unspecified (principal); F17.200 Nicotine dependence, unspecified, uncomplicated; I10 Essential (primary) hypertension; Y90.8 Blood alcohol level of 240 mg/100 ml or more; Z79.899 Other long term (current) drug therapy
CPT/HCPCS: 80053; 80307; 84443; 85025; 99283

== ENCOUNTER 2018-01-31 16:44 | Emergency (ER) | payer SELFPAY ==
[~2018-01-31] VITALS: Ht 182.9 cm; Wt 80.0 kg
[2018-01-31 17:37] VITALS: BP 124/76; PULSE 90; RESP 16; TEMP 98.1; O2SAT 95
--- NOTE | 2018-01-31 17:50 | PD ---
HPI Chief Complaint: Alcohol/Drug Intoxication Time Seen by Provider: 17:02 Travel History International Travel<30 days: No Contact w/Intl Traveler<30days: No Traveled to known affect area: No History of Present Illness HPI Patient 57-year-old male presents emergency department after being found sleeping outside a local establishment. Heavily intoxicated on arrival. Sonorous on my initial examination after painful stimuli he states he is just drunk. He denies any physical complaints and actually states he feels ""pretty good". After this history quickly drift back off to sleep. History otherwise limited given his level of intoxication [facility] Past Medical History Anemia: Yes Autoimmune Disease: No Depression: Yes (WITH SUICIDAL IDEATIONS in past) Cancer: No Cardiovascular Problems: Yes Diabetes: No Diminished Hearing: No Gastrointestinal Disorders: Yes (GI BLEED) Genitourinary: No Hiatal Hernia: Yes Hypertension: Yes Immune Disorder: No Implanted Vascular Access Dvce: No Kidney Stones: Yes Musculoskeletal: No Neurologic: Yes Psychiatric: No Reproductive: No Respiratory: No Immunizations Current: Yes Myocardial Infarction: Yes Seizures: Yes (ALCOHOL RELATED) Ulcer: Yes Past Surgical History Abdominal Surgery: Yes (Hernia repair) Other Surgery: Yes (HIATAL HERNIA 1978) Social History Alcohol Use: Yes (6 pack of beer daily) Tobacco Use: Yes (1-1/2 packs per day) Substance Use: No Allergies-Medications (Allergen,Severity, Reaction): Coded Allergies: No Known Allergies (Unverified Adverse Reaction, Unknown, 12/08/17) Reported Meds & Prescriptions Reported Meds & Active Scripts Active Active Prescriptions or Reported Medications Unobtainable Review of Systems ROS Limitations: Intoxication Physical Exam Narrative GENERAL: Well-developed, well-nourished, unkempt and smells heavily of alcohol SKIN: Focused skin assessment warm/dry. There is some erythema and some desquamation in between the digits of the toes consistent with a mild tinea pedis otherwise no bruising seen on his chest abdomen or pelvis peer HEAD: Atraumatic. Normocephalic. No quijano signs no raccoons EYES: Pupils equal and round. No scleral icterus. No injection or drainage. ENT: No nasal bleeding or discharge. Mucous membranes pink and moist. NECK: Trachea midline. No JVD. CARDIOVASCULAR: Regular rate and rhythm. No murmur appreciated. RESPIRATORY: No accessory muscle use. Clear to auscultation. Breath sounds equal bilaterally. GASTROINTESTINAL: Abdomen soft, non-tender, nondistended. Hepatic and splenic margins not palpable. MUSCULOSKELETAL: No obvious deformities. No clubbing. No cyanosis. No edema. No midline CT or L-spine tenderness NEUROLOGICAL: Sleeping, arouses to painful stimuli: GCS [id number]. PSYCHIATRIC: Unable to assess secondary to intoxicate Data Data Last Documented VS Vital Signs Date Time Temp Pulse Resp B/P (MAP) Pulse Ox O2 Delivery O2 Flow Rate FiO2 01/31/18 17:37 98.1 90 16 124/76 (92) 95 MDM Medical Decision Making Medical Screen Exam Complete: Yes Emergency Medical Condition: Yes Differential Diagnosis Alcohol intoxication, head injury unlikely, neck injury unlikely, tinea pedis Narrative Course Patient room to the emergency department, fairly heavily intoxicated, has no medical complaints. Does arouse to painful stimuli but quickly just low back to sleep. Will be observed in the emergency department until clinically sober for discharge. Unfortunately while observing the patient, he absconded from the hospital and was not amenable to a repeat evaluation prior to discharge. Diagnosis Primary Impression: Alcohol intoxication Scripts Unable to Obtain Active Prescriptions or Reported Meds Disposition: 01 DISCHARGE HOME Condition: Stable Remy Yun MD Jan 31, 2018 17:50
== END 2018-01-31 21:36 | disposition home or self-care (01) ==
LOC: NEDAMB 16:44
DX: F10.129 Alcohol abuse with intoxication, unspecified (principal); F17.200 Nicotine dependence, unspecified, uncomplicated
CPT/HCPCS: 99282

== ENCOUNTER 2018-02-02 14:14 | Emergency (ER) | payer SELFPAY ==
[~2018-02-02] VITALS: Ht 182.9 cm; Wt 81.0 kg
[2018-02-02 14:25] VITALS: BP 131/81; PULSE 107; RESP 22; TEMP 98; O2SAT 98
[2018-02-02] MEDS ORDERED: chlordiazePOXIDE 25 MG CAP PO ONE (18:00)
[2018-02-02] MEDS ORDERED: LORazepam 2 MG/ML VIAL IV PUSH PRN ×4 (18:00)
[2018-02-02] MEDS ORDERED: LORazepam 1 MG TAB PO PRN (18:00)
[2018-02-02] MEDS ORDERED: LORazepam 2 MG TAB PO PRN (18:00)
[2018-02-02] MEDS ORDERED: FLUMAZENIL 0.5 MG/5 ML VIAL IV PUSH PRN (18:00)
--- NOTE | 2018-02-02 18:00 | PD ---
HPI Chief Complaint: Alcohol/Drug Intoxication Time Seen by Provider: 17:28 Travel History International Travel<30 days: No Contact w/Intl Traveler<30days: No Traveled to known affect area: No History of Present Illness HPI 57-year-old male well known to us as a chronic alcohol abuser, is brought in under the [employer] act by police. Patient states he was trying to get into [facility], but reportedly was turned away. He denies any acute medical implants. He does admit to drinking a large amount of alcohol today. He has no known drug allergies. PFSH Past Medical History Anemia: Yes Autoimmune Disease: No Depression: Yes (WITH SUICIDAL IDEATIONS in past) Cancer: No Cardiovascular Problems: Yes Diabetes: No Diminished Hearing: No Gastrointestinal Disorders: Yes (GI BLEED) Genitourinary: No Hiatal Hernia: Yes Hypertension: Yes Immune Disorder: No Implanted Vascular Access Dvce: No Kidney Stones: Yes Musculoskeletal: No Neurologic: Yes Psychiatric: No Reproductive: No Respiratory: No Immunizations Current: Yes Myocardial Infarction: Yes Seizures: Yes (ALCOHOL RELATED) Ulcer: Yes Past Surgical History Abdominal Surgery: Yes (Hernia repair) Other Surgery: Yes (HIATAL HERNIA 1978) Social History Alcohol Use: Yes (6 pack of beer daily) Tobacco Use: Yes (1-1/2 packs per day) Substance Use: No Allergies-Medications (Allergen,Severity, Reaction): Coded Allergies: No Known Allergies (Unverified Adverse Reaction, Unknown, 12/08/17) Reported Meds & Prescriptions Reported Meds & Active Scripts Active No Active Prescriptions or Reported Medications Review of Systems Except as stated in HPI: all other systems reviewed are Neg General / Constitutional: No: Fever Eyes: No: Visual changes HENT: No: Headaches Cardiovascular: No: Chest Pain or Discomfort Respiratory: No: Shortness of Breath Gastrointestinal: No: Abdominal Pain Genitourinary: No: Dysuria Musculoskeletal: No: Pain Skin: No Rash Neurologic: No: Weakness Psychiatric: No: Depression Endocrine: No: Polydipsia Hematologic/Lymphatic: No: Easy Bruising Physical Exam Narrative GENERAL: Patient is resting comfortably on exam table eating when I come into the room. SKIN: Warm and dry. Normal color. Normal turgor. No signs of trauma. HEAD: Atraumatic. Normocephalic. EYES: Pupils equal and round. No scleral icterus. No injection or drainage. ENT: No nasal bleeding or discharge. Mucous membranes pink and moist. Pharynx is clear. Airways patent. NECK: Trachea midline. Supple nontender. CARDIOVASCULAR: Regular rate and rhythm. RESPIRATORY: No accessory muscle use. Clear to auscultation. Breath sounds equal bilaterally. GASTROINTESTINAL: Abdomen soft, non-tender, nondistended. Hepatic and splenic margins not palpable. MUSCULOSKELETAL: Extremities without clubbing, cyanosis, or edema. No obvious deformities. NEUROLOGICAL: Awake and alert. No obvious cranial nerve deficits. Motor grossly within normal limits. Five out of 5 muscle strength in the arms and legs. Normal speech. PSYCHIATRIC: Appropriate mood and affect; insight and judgment normal. Data Data Last Documented VS Vital Signs Date Time Temp Pulse Resp B/P (MAP) Pulse Ox O2 Delivery O2 Flow Rate FiO2 02/02/18 14:25 98.0 107 22 131/81 (98) 98 Orders Orders Complete Blood Count With Diff (02/02/18 17:55) Comprehensive Metabolic Panel (02/02/18 17:55) Thyroid Stimulating Hormone (02/02/18 17:55) Urinalysis - C+S If Indicated (02/02/18 17:55) Drug Screen, Random Urine (02/02/18 17:55) Alcohol (Ethanol) (02/02/18 17:55) Psych Screen (02/02/18 17:55) Chlordiazepoxide (Librium) (02/02/18 18:00) Alcohol Withdrawal Asmt-Ciwa Q4HX18 (02/02/18 17:55) Flumazenil Inj (Romazicon Inj) (02/02/18 18:00) Lorazepam (Ativan) (02/02/18 18:00) Lorazepam Inj (Ativan Inj) (02/02/18 18:00) Lorazepam (Ativan) (02/02/18 18:00) Lorazepam Inj (Ativan Inj) (02/02/18 18:00) Lorazepam Inj (Ativan Inj) (02/02/18 18:00) Lorazepam Inj (Ativan Inj) (02/02/18 18:00) Labs Laboratory Tests Test 02/02/18 18:25 [facility] Medical Decision Making Medical Screen Exam Complete: Yes Emergency Medical Condition: Yes Medical Record Reviewed: Yes Differential Diagnosis Chronic alcohol abuse. [place] act. Malingering. Narrative Course Psychiatric labs ordered per protocol. Patient is given Librium 25 mg p.o. now. Patient is placed on the CIWA protocol. Patient is medically cleared for psychiatric evaluation. Diagnosis Primary Impression: Alcohol dependence with uncomplicated intoxication Scripts No Active Prescriptions or Reported Meds Condition: Prasad Malloy Feb 02, 2018 18:00
[2018-02-02 19:06] LABS: BACTERIA, URINE RARE /hpf; BILIRUBIN, URINE NEG (NEG); BLOOD, URINE NEG (NEG); GLUCOSE,URINE NEG (NEG); KETONE, URINE NEG (NEG); MUCUS URINE FEW /lpf (OCC); NITRITE,URINE NEG (NEG); PH, URINE 5.5 (5.0-8.5); URINE COLOR YELLOW (YELLW/STRAW); URINE LEUKOCYTE ESTERASE NEG (NEG)
[2018-02-02 19:12] LABS: ALBUMIN 3.8 GM/DL (3.4-5.0); AST (GOT) 55 U/L (15-37); BICARBONATE 25.9 MEQ/L (21.0-32.0); BLOOD UREA NITROGEN 9 MG/DL (7-18); CALCIUM 8.5 MG/DL (8.5-10.1); CHLORIDE 104 MEQ/L (98-107); CREATININE 0.89 MG/DL (0.60-1.30); GLOMERULAR FILTRATION RATE 89 ML/MIN (>89); GLUCOSE,RANDOM 108 MG/DL (74-106); SODIUM (NA) 141 MEQ/L (136-145)
[2018-02-02 19:13] LABS: ALT (GPT) 61 U/L (12-78)
[2018-02-02 19:14] LABS: AUTOMATED NEUTROPHIL # 5.4 TH/MM3 (1.8-7.7); BASOPHIL # 0.1 TH/MM3 (0-0.2); EOSINOPHIL # 0.1 TH/MM3 (0-0.4); EOSINOPHIL % 1.2 % (0.0-4.0); HEMATOCRIT 38.3 % (39.0-51.0); HEMOGLOBIN 13.5 GM/DL (13.0-17.0); LYMPH % 24.3 % (9.0-44.0); MEAN CELL VOLUME 88.9 FL (80.0-100.0); MEAN CORPUSCULAR HEMOGLOBIN 31.4 PG (27.0-34.0); MEAN CORPUSCULAR HGB CONC 35.3 % (32.0-36.0); MEAN PLATELET VOLUME 7.2 FL (7.0-11.0); MONO % 6.4 % (0.0-8.0); MONOCYTE # 0.5 TH/MM3 (0-0.9); NEUT % 67.1 % (16.0-70.0); PLATELET COUNT 334 TH/MM3 (150-450); RED BLOOD COUNT 4.31 MIL/MM3 (4.50-5.90); RED CELL DISTRIBUTION WIDTH 15.6 % (11.6-17.2); WHITE BLOOD COUNT 8.1 TH/MM3 (4.0-11.0)
[2018-02-02 19:23] LABS: ALKALINE PHOSPHATASE 125 U/L (45-117); TOTAL BILIRUBIN ADULT 0.3 MG/DL (0.2-1.0); TOTAL PROTEIN 7.6 GM/DL (6.4-8.2)
== END 2018-02-02 20:58 | disposition left against medical advice (07) ==
LOC: NEPD 14:14
DX: F10.229 Alcohol dependence with intoxication, unspecified (principal); D64.9 Anemia, unspecified; F32.9 Major depressive disorder, single episode, unspecified; I10 Essential (primary) hypertension; I25.2 Old myocardial infarction; F17.200 Nicotine dependence, unspecified, uncomplicated; Z86.69 Personal history of other diseases of the nervous system and sense organs; Z87.442 Personal history of urinary calculi
CPT/HCPCS: 80053; 80307; 81001; 84443; 85025; 99283

== ENCOUNTER 2018-02-02 21:37 | Emergency (ER) | payer SELFPAY ==
[~2018-02-02] VITALS: Ht 182.9 cm; Wt 80.0 kg
[2018-02-02 22:30] VITALS: RESP 18
--- NOTE | 2018-02-02 22:41 | PD ---
HPI Chief Complaint: GI Complaint Time Seen by Provider: 22:41 Travel History International Travel<30 days: No Contact w/Intl Traveler<30days: No Traveled to known affect area: No History of Present Illness HPI 57-year-old male with long-standing history of mood disorder, substance abuse, malingering at our facility, presents today for the second time today but this time for constipation. Patient states he has not had a bowel movement in 5 days. Denies any opiate use. Denies any significant abdominal pain except for lower abdominal cramping. Denies any fever chills. No nausea, vomiting, diarrhea. He has no other symptoms to report. PFSH Past Medical History Anemia: Yes Autoimmune Disease: No Depression: Yes Cancer: No Cardiovascular Problems: Yes Diabetes: No Diminished Hearing: No Gastrointestinal Disorders: Yes (GI BLEED) Genitourinary: No Hiatal Hernia: Yes Hypertension: Yes Immune Disorder: No Implanted Vascular Access Dvce: No Kidney Stones: Yes Musculoskeletal: No Neurologic: Yes Psychiatric: No Reproductive: No Respiratory: No Immunizations Current: Yes Myocardial Infarction: Yes Seizures: Yes (ALCOHOL RELATED) Ulcer: Yes Tetanus Vaccination: < 5 Years Past Surgical History Abdominal Surgery: Yes (Hernia repair) Other Surgery: Yes (HIATAL HERNIA 1978) Social History Alcohol Use: Yes ("as much and when I can get it") Tobacco Use: Yes (1-1/2 packs per day) Substance Use: No (hx of drug abuse) Allergies-Medications (Allergen,Severity, Reaction): Coded Allergies: No Known Allergies (Unverified Adverse Reaction, Unknown, 12/08/17) Reported Meds & Prescriptions Reported Meds & Active Scripts Active No Active Prescriptions or Reported Medications Review of Systems Except as stated in HPI: all other systems reviewed are Neg Physical Exam Narrative GENERAL: Well-nourished, well-developed male patient in no acute distress SKIN: Focused skin assessment warm/dry. HEAD: Normocephalic. EYES: No scleral icterus. No injection or drainage. NECK: Supple, trachea midline. No JVD or lymphadenopathy. CARDIOVASCULAR: Regular rate and rhythm without murmurs, gallops, or rubs. RESPIRATORY: Breath sounds coarse, diminished bases, equal bilaterally. No accessory muscle use. GASTROINTESTINAL: Abdomen soft, non-tender, nondistended. No guarding. No rebound tenderness MUSCULOSKELETAL: No cyanosis, or edema. BACK: Nontender without obvious deformity. No CVA tenderness. Data Data Last Documented VS Vital Signs Date Time Temp Pulse Resp B/P (MAP) Pulse Ox O2 Delivery O2 Flow Rate FiO2 02/02/18 22:30 18 Orders Orders Bucket, Enema Cleansing Ea (02/02/18 22:48) Enema Administration PRN (02/02/18 22:48) Ed Discharge Order (02/03/18 00:12) MDM Medical Decision Making Medical Screen Exam Complete: Yes Emergency Medical Condition: Yes Medical Record Reviewed: Yes Differential Diagnosis Constipation versus flatus versus malingering Narrative Course 57-year-old male presents emergency department for evaluation of constipation 5 days. Patient appears without distress. Vital signs are stable. Abdominal exam is benign. Patient states that he needs an enema. He is given a soapsuds enema and does have a large formed brown bowel movement. He will be discharged at this time. Patient gets very angry as he is discharged that he is not allowed to sleep here for the evening. He is reminded that this is a facility to treat emergencies and patients are waiting to be seen as he did. He becomes angry, yells at staff, and leaves. Diagnosis Primary Impression: Constipation Qualified Codes: K59.00 - Constipation, unspecified Referrals: Primary Care Physician Patient Instructions: Constipation (ED), General Instructions Additional Instructions: Maintain adequate oral hydration Follow up with a primary care provider Increase fiber intake Return to ED with acute worsening of symptoms Med/Other Pt SpecificInfo: No Change to Meds Scripts No Active Prescriptions or Reported Meds Disposition: 01 DISCHARGE HOME Condition: Stable Neisha Baker Feb 02, 2018 22:41
== END 2018-02-03 00:28 | disposition home or self-care (01) ==
LOC: NEPD 21:37
DX: K59.00 Constipation, unspecified (principal); F17.200 Nicotine dependence, unspecified, uncomplicated; F39 Unspecified mood [affective] disorder; D64.9 Anemia, unspecified; I10 Essential (primary) hypertension; I25.2 Old myocardial infarction; Z76.5 Malingerer [conscious simulation]; Z87.442 Personal history of urinary calculi; Z86.69 Personal history of other diseases of the nervous system and sense organs
CPT/HCPCS: 99283

== ENCOUNTER 2018-02-15 15:19 | Emergency (ER) | payer SELFPAY ==
[2018-02-15] VITALS (7 sets, daily range): BP systolic 97–153; BP diastolic 63–82; PULSE 74–87; RESP 16–18; TEMP 97.8; O2SAT 97–99
[~2018-02-15] VITALS: Ht 182.9 cm; Wt 84.0 kg
--- NOTE | 2018-02-15 16:26 | RADRPT ---
EXAM DATE/TIME: 02/15/2018 16:01 [facility] COMPARISON: CHEST SINGLE AP, December 08, 2017, 23:47. INDICATIONS : Chest pain and ETOH per [facility] MEDICAL HISTORY : None. SURGICAL HISTORY : None. ENCOUNTER: Initial ACUITY: 1 day PAIN SCORE: Non-responsive. LOCATION: Bilateral chest FINDINGS: A single view of the chest demonstrates the lungs to be symmetrically aerated without evidence of mas s, infiltrate or effusion. The cardiomediastinal contours are unremarkable. Osseous structures are intact. CONCLUSION: No acute disease. Berny Viera MD FACR on February 15, 2018 at 16:23 Board Certified Radiologist. This report was verified electronically.
[2018-02-15 16:27] LABS: AUTOMATED NEUTROPHIL # 1.6 TH/MM3 (1.8-7.7); BASOPHIL # 0.1 TH/MM3 (0-0.2); BASOPHIL % 1.2 % (0.0-2.0); EOSINOPHIL # 0.3 TH/MM3 (0-0.4); EOSINOPHIL % 5.9 % (0.0-4.0); HEMATOCRIT 41.2 % (39.0-51.0); HEMOGLOBIN 13.8 GM/DL (13.0-17.0); LYMPH % 44.2 % (9.0-44.0); LYMPHOCYTE # 1.9 TH/MM3 (1.0-4.8); MEAN CELL VOLUME 89.5 FL (80.0-100.0); MEAN CORPUSCULAR HEMOGLOBIN 29.9 PG (27.0-34.0); MEAN CORPUSCULAR HGB CONC 33.4 % (32.0-36.0); MEAN PLATELET VOLUME 6.9 FL (7.0-11.0); MONO % 10.3 % (0.0-8.0); MONOCYTE # 0.4 TH/MM3 (0-0.9); NEUT % 38.4 % (16.0-70.0); PLATELET COUNT 342 TH/MM3 (150-450); RED CELL DISTRIBUTION WIDTH 15.4 % (11.6-17.2); WHITE BLOOD COUNT 4.3 TH/MM3 (4.0-11.0)
[2018-02-15 16:34] LABS: CHLORIDE 108 MEQ/L (98-107); SODIUM (NA) 142 MEQ/L (136-145)
[2018-02-15 16:36] LABS: CALCIUM 8.1 MG/DL (8.5-10.1)
[2018-02-15 16:37] LABS: BICARBONATE 29.9 MEQ/L (21.0-32.0); BLOOD UREA NITROGEN 5 MG/DL (7-18); GLUCOSE,RANDOM 85 MG/DL (74-106)
[2018-02-15 16:40] LABS: CREATININE 0.88 MG/DL (0.60-1.30); GLOMERULAR FILTRATION RATE 90 ML/MIN (>89)
[2018-02-15 16:45] LABS: TROPONIN I LESS THAN 0.02 NG/ML (0.02-0.05)
--- NOTE | 2018-02-15 19:27 | PD ---
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 When police arrived, they told him that he needed to leave for they would trespass him off. Patient reportedly told the police surgeon that he was having chest pain. When paramedics arrived, he was transported here for evaluation. En route, paramedics asked him if he had stated he had chest pain just to avoid being arrested. The patient reported that he did not have pain and did not want to be arrested. Patient admits to drinking 14 tall beers today. He has no complaints. He did wet his pants while laying in the park. PFSH Past Medical History Hx Anticoagulant Therapy: No Anemia: Yes Autoimmune Disease: No Depression: Yes Cancer: No Cardiovascular Problems: No Chemotherapy: No Cerebrovascular Accident: No Diabetes: No Diminished Hearing: No Gastrointestinal Disorders: Yes (GI BLEED) Genitourinary: No Hiatal Hernia: Yes Hypertension: Yes Immune Disorder: No Implanted Vascular Access Dvce: No Kidney Stones: Yes Musculoskeletal: No Neurologic: Yes Psychiatric: No Reproductive: No Respiratory: No Immunizations Current: Yes Myocardial Infarction: Yes Seizures: Yes (ALCOHOL RELATED) Ulcer: Yes Influenza Vaccination: No Past Surgical History Abdominal Surgery: Yes (Hernia repair) Hysterectomy: No Other Surgery: Yes (HIATAL HERNIA 1978) Social History Alcohol Use: Yes ("as much and when I can get it") Tobacco Use: Yes (1-1/2 packs per day) Substance Use: No (hx of drug abuse) Allergies-Medications (Allergen,Severity, Reaction): Coded Allergies: No Known Allergies (Unverified Adverse Reaction, Unknown, 12/08/17) Reported Meds & Prescriptions Reported Meds & Active Scripts Active No Active Prescriptions or Reported Medications Review of Systems ROS Limitations: Intoxication Except as stated in HPI: all other systems reviewed are Neg General / Constitutional: No: Fever, Chills HENT: No: Headaches, Neck Pain Cardiovascular: No: Chest Pain or Discomfort (Despite initially telling please he had chest pain.), Palpitations Respiratory: No: Cough, Shortness of Breath Gastrointestinal: No: Nausea, Vomiting, Abdominal Pain Genitourinary: No: Pelvic Pain, Flank Pain Musculoskeletal: No: Weakness, Pain Neurologic: No: Dizziness, Headache Psychiatric: Positive: Substance Abuse Physical Exam Narrative GENERAL: Well developed well-nourished male who appears obviously intoxicated. Patient has a odor, especially with alcohol to his breath. SKIN: Focused skin assessment warm/dry. HEAD: Atraumatic. Normocephalic. EYES: No scleral icterus. No injection or drainage. ENT: No nasal bleeding or discharge. Mucous membranes pink and moist. NECK: Trachea midline. Supple. CARDIOVASCULAR: Regular rate and rhythm. No murmur appreciated. RESPIRATORY: No accessory muscle use. Clear to auscultation. Breath sounds equal bilaterally. GASTROINTESTINAL: Abdomen soft, non-tender, nondistended. MUSCULOSKELETAL: No obvious deformities. No clubbing. No cyanosis. No edema. NEUROLOGICAL: Awake and alert. No obvious cranial nerve deficits. Motor grossly within normal limits. Slurred speech consistent with alcohol abuse. Data Data Last Documented VS Vital Signs Date Time Temp Pulse Resp B/P (MAP) Pulse Ox O2 Delivery O2 Flow Rate FiO2 02/15/18 18:26 74 16 111/75 (87) 97 Room Air 02/15/18 15:20 97.8 Orders Orders Electrocardiogram (02/15/18 15:39) Complete Blood Count With Diff (02/15/18 15:39) Basic Metabolic Panel (Bmp) (02/15/18 15:39) Ckmb (Isoenzyme) Profile (02/15/18 15:39) Troponin I (02/15/18 15:39) Chest, Single Ap (02/15/18 15:39) Iv Access Insert/Monitor (02/15/18 15:39) Ecg Monitoring (02/15/18 15:39) Oximetry (02/15/18 15:39) Alcohol (Ethanol) (02/15/18 15:39) CKMB (02/15/18 16:15) CKMB% (02/15/18 16:15) Labs Laboratory Tests Test 02/15/18 16:15 White Blood Count 4.3 TH/MM3 Red Blood Count 4.60 MIL/MM3 Hemoglobin 13.8 GM/DL Hematocrit 41.2 % Mean Corpuscular Volume 89.5 FL Mean Corpuscular Hemoglobin 29.9 PG Mean Corpuscular Hemoglobin Concent 33.4 % Red Cell Distribution Width 15.4 % Platelet Count 342 TH/MM3 Mean Platelet Volume 6.9 FL Neutrophils (%) (Auto) 38.4 % Lymphocytes (%) (Auto) 44.2 % Monocytes (%) (Auto) 10.3 % Eosinophils (%) (Auto) 5.9 % Basophils (%) (Auto) 1.2 % Neutrophils # (Auto) 1.6 TH/MM3 Lymphocytes # (Auto) 1.9 TH/MM3 Monocytes # (Auto) 0.4 TH/MM3 Eosinophils # (Auto) 0.3 TH/MM3 Basophils # (Auto) 0.1 TH/MM3 CBC Comment DIFF FINAL Differential Comment Blood Urea Nitrogen 5 MG/DL Creatinine 0.88 MG/DL Random Glucose 85 MG/DL Calcium Level 8.1 MG/DL Sodium Level 142 MEQ/L Potassium Level 3.7 MEQ/L Chloride Level 108 MEQ/L Carbon Dioxide Level 29.9 MEQ/L Anion Gap 4 MEQ/L Estimat Glomerular Filtration Rate 90 ML/MIN Total Creatine Kinase 1021 U/L Creatine Kinase MB 10.9 NG/ML Creatine Kinase MB % 1.1 % Troponin I LESS THAN 0.02 NG/ML Ethyl Alcohol Level 395 MG/DL MDM Medical Decision Making Medical Screen Exam Complete: Yes Emergency Medical Condition: Yes Differential Diagnosis Alcohol intoxication versus muscular skeletal pain versus malingering Narrative Course 57-year-old male well-known to this emergency department with a history of alcohol abuse, presents here via EMS after he was found loitering in a park. Patient has been drinking heavily today. Patient's alcohol level is 395. Patient also has mild rhabdomyolysis. He is currently being observed and receiving IV fluid. He will be signed out to Dr. Ashley, physician replaced me at change of shift. When he is appropriately sober, he can be safely discharged. Diagnosis Primary Impression: Alcohol intoxication Additional Impression: Rhabdomyolysis Scripts No Active Prescriptions or Reported Meds Mayito Bauer MD February 15, 2018 19:27
--- NOTE | 2018-02-16 00:35 | PD ---
Data Data Last Documented VS Vital Signs Date Time Temp Pulse Resp B/P (MAP) Pulse Ox O2 Delivery O2 Flow Rate FiO2 02/16/18 00:46 78 18 122/68 (86) 98 Room Air 02/15/18 15:20 97.8 Orders Orders Electrocardiogram (02/15/18 15:39) Complete Blood Count With Diff (02/15/18 15:39) Basic Metabolic Panel (Bmp) (02/15/18 15:39) Ckmb (Isoenzyme) Profile (02/15/18 15:39) Troponin I (02/15/18 15:39) Chest, Single Ap (02/15/18 15:39) Iv Access Insert/Monitor (02/15/18 15:39) Ecg Monitoring (02/15/18 15:39) Oximetry (02/15/18 15:39) Alcohol (Ethanol) (02/15/18 15:39) CKMB (02/15/18 16:15) CKMB% (02/15/18 16:15) Ed Discharge Order (02/16/18 00:35) Labs Laboratory Tests Test 02/15/18 16:15 White Blood Count 4.3 TH/MM3 Red Blood Count 4.60 MIL/MM3 Hemoglobin 13.8 GM/DL Hematocrit 41.2 % Mean Corpuscular Volume 89.5 FL Mean Corpuscular Hemoglobin 29.9 PG Mean Corpuscular Hemoglobin Concent 33.4 % Red Cell Distribution Width 15.4 % Platelet Count 342 TH/MM3 Mean Platelet Volume 6.9 FL Neutrophils (%) (Auto) 38.4 % Lymphocytes (%) (Auto) 44.2 % Monocytes (%) (Auto) 10.3 % Eosinophils (%) (Auto) 5.9 % Basophils (%) (Auto) 1.2 % Neutrophils # (Auto) 1.6 TH/MM3 Lymphocytes # (Auto) 1.9 TH/MM3 Monocytes # (Auto) 0.4 TH/MM3 Eosinophils # (Auto) 0.3 TH/MM3 Basophils # (Auto) 0.1 TH/MM3 CBC Comment DIFF FINAL Differential Comment Blood Urea Nitrogen 5 MG/DL Creatinine 0.88 MG/DL Random Glucose 85 MG/DL Calcium Level 8.1 MG/DL Sodium Level 142 MEQ/L Potassium Level 3.7 MEQ/L Chloride Level 108 MEQ/L Carbon Dioxide Level 29.9 MEQ/L Anion Gap 4 MEQ/L Estimat Glomerular Filtration Rate 90 ML/MIN Total Creatine Kinase 1021 U/L Creatine Kinase MB 10.9 NG/ML Creatine Kinase MB % 1.1 % Troponin I LESS THAN 0.02 NG/ML Ethyl Alcohol Level 395 MG/DL MDM Supervised Visit with YENI: No Narrative Course This is an alcoholic who presents to the emergency department with acute alcohol intoxication. He was observed in the emergency department. Currently he is ambulatory, answering questions appropriately and expressing his reasoning coherently. He wants to leave. I do not think I can keep him against his will. He was discharged. Diagnosis Primary Impression: Alcohol intoxication Additional Impression: Rhabdomyolysis Patient Instructions: General Instructions Additional Instruction: Follow up with Manuel Coe in regards to psychiatric or substance related issues at: [address] [place], [place] [id number] Med/Other Pt SpecificInfo: No Change to Meds Scripts No Active Prescriptions or Reported Meds Disposition: 01 DISCHARGE HOME Condition: Stable Yumiko Ashley MD February 16, 2018 00:35
[2018-02-16 00:46] VITALS: BP_SYST 112; BP_SYST 122; BP_DIAS 68; PULSE 78; RESP 18; O2SAT 98
--- NOTE | 2018-02-16 17:38 | EKG ---
Date Performed: 02/15/2018 Time Performed: 15:23:40 PTAGE: 57 years EKG: Sinus rhythm INCOMPLETE RIGHT BUNDLE BRANCH BLOCK BORDERLINE ECG PREVIOUS TRACING : 12/11/2017 23.53 Since the previous tracing, no significant change noted DOCTOR: Trey Hopkins Interpretating Date/Time 02/16/2018 17:36:44
== END 2018-02-16 00:49 | disposition home or self-care (01) ==
LOC: PHED 15:19
DX: F10.129 Alcohol abuse with intoxication, unspecified (principal); Y90.8 Blood alcohol level of 240 mg/100 ml or more; M62.82 Rhabdomyolysis; R94.31 Abnormal electrocardiogram [ECG] [EKG]; R07.9 Chest pain, unspecified; F32.9 Major depressive disorder, single episode, unspecified; I10 Essential (primary) hypertension; I25.2 Old myocardial infarction
CPT/HCPCS: 71045; 80048; 80307; 82550; 82552; 84484; 85025; 93005; 99285

== ENCOUNTER 2018-03-04 09:07 | Inpatient (IN) | payer OTHER ==
[~2018-03-04] VITALS: Ht 182.9 cm; Wt 80.0 kg
[2018-03-04] VITALS (10 sets, daily range): BP systolic 107–138; BP diastolic 64–86; PULSE 72–98; RESP 15–18; TEMP 97.6–98.2; O2SAT 96–99
[2018-03-04] MEDS ORDERED: ASPIRIN 81 MG CHEW TAB PO ONE (09:45)
[2018-03-04] MEDS ORDERED: SODIUM CHLORIDE 0.9% FLUSH 10 ML FLUSH IVF PRN (09:45)
--- NOTE | 2018-03-04 09:47 | PD ---
HPI Chief Complaint: Psychiatric Symptoms Time Seen by Provider: 09:34 Travel History International Travel<30 days: No Contact w/Intl Traveler<30days: No Traveled to known affect area: No History of Present Illness HPI 57-year-old male with history of alcoholism and tobacco use presents for evaluation under [place] act initiated by the [employer]. According to his paperwork the patient was intoxicated to the point where he is unable to care for himself. The patient reports that he drinks on a daily basis, today he drank either 4 or 8 beers as well as a bottle of mouthwash. He is currently complaining of chest pain. He describes it as a "elephant sitting on my chest" which is worse when he does not drink alcohol and alleviated by drinking alcohol. He reports that he has been having this pain intermittently for the past few months but it is worse over the past few days. He reports that he has a cough which is productive of yellow sputum. He also reports chronic sciatica pain which is nonacute. Denies any nausea, vomiting, shortness of breath, abdominal pain, diarrhea, constipation. Denies any illicit drug use. He has no other complaints at this time. PFSH Past Medical History Hx Anticoagulant Therapy: No Anemia: Yes Autoimmune Disease: No Depression: Yes Cancer: No Cardiovascular Problems: No Chemotherapy: No Cerebrovascular Accident: No Diabetes: No Diminished Hearing: No Gastrointestinal Disorders: Yes (GI BLEED) Genitourinary: No Hiatal Hernia: Yes Hypertension: Yes Immune Disorder: No Implanted Vascular Access Dvce: No Kidney Stones: Yes Musculoskeletal: No Neurologic: Yes Psychiatric: No Reproductive: No Respiratory: Yes (COPD) Immunizations Current: Yes Myocardial Infarction: Yes Seizures: Yes (ALCOHOL RELATED) Ulcer: Yes Past Surgical History Abdominal Surgery: Yes (Hernia repair) Hysterectomy: No Other Surgery: Yes (HIATAL HERNIA 1978) Social History Alcohol Use: Yes ("as much and when I can get it") Tobacco Use: Yes (1-1/2 packs per day) Substance Use: No (hx of drug abuse) Allergies-Medications (Allergen,Severity, Reaction): Coded Allergies: No Known Allergies (Unverified Adverse Reaction, Unknown, 03/04/18) Reported Meds & Prescriptions Reported Meds & Active Scripts Active No Active Prescriptions or Reported Medications Review of Systems Except as stated in HPI: all other systems reviewed are Neg Physical Exam Narrative GENERAL: Disheveled male in no acute distress SKIN: Warm and dry. HEAD: Atraumatic. Normocephalic. EYES: Pupils equal and round. No scleral icterus. No injection or drainage. ENT: No nasal bleeding or discharge. Mucous membranes pink and moist. NECK: Trachea midline. No JVD. CARDIOVASCULAR: Regular rate and rhythm. No murmur appreciated. RESPIRATORY: No accessory muscle use. Clear to auscultation. Breath sounds equal bilaterally. No crackles no wheezing no rhonchi. GASTROINTESTINAL: Abdomen soft, mild epigastric tenderness without guarding. No CVA tenderness. MUSCULOSKELETAL: No obvious deformities. No clubbing. No cyanosis. No edema. NEUROLOGICAL: Awake and alert. No obvious cranial nerve deficits. Motor grossly within normal limits. Slurred speech. Data Data Last Documented VS Vital Signs Date Time Temp Pulse Resp B/P (MAP) Pulse Ox O2 Delivery O2 Flow Rate FiO2 03/04/18 09:19 97.6 72 16 130/86 (101) 98 Orders Orders Electrocardiogram (03/04/18 09:44) Basic Metabolic Panel (Bmp) (03/04/18 09:44) Ckmb (Isoenzyme) Profile (03/04/18 09:44) Complete Blood Count With Diff (03/04/18:44) Magnesium (Mg) (03/04/18:44) Prothrombin Time / Inr (Pt) (03/04/18:44) Act Partial Throm Time (Ptt) (03/04/18 09:44) Troponin I (03/04/18:44) Lipase (03/04/18:44) Ecg Monitoring (03/04/18:44) Bilateral Bp Monitoring (03/04/18:44) Iv Access Insert/Monitor (03/04/18:44) Oximetry (03/04/18 09:44) Oxygen Administration (03/04/18 09:44) Aspirin Chew (Aspirin Chew) (03/04/18 09:45) Sodium Chloride 0.9% Flush (Ns Flush) (03/04/18 09:45) Chest, Pa & Lat (03/04/18 09:44) Alcohol (Ethanol) (03/04/18 09:44) CKMB (03/04/18 09:20) CKMB% (03/04/18 09:20) Sodium Chlor 0.9% 1000 Ml Inj (Ns 1000 M (03/04/18 10:59) Labs Laboratory Tests Test 03/04/18 09:20 03/04/18 10:20 White Blood Count 4.6 TH/MM3 Red Blood Count 4.60 MIL/MM3 Hemoglobin 14.3 GM/DL Hematocrit 42.5 % Mean Corpuscular Volume 92.3 FL Mean Corpuscular Hemoglobin 31.2 PG Mean Corpuscular Hemoglobin Concent 33.8 % Red Cell Distribution Width 17.4 % Platelet Count 167 TH/MM3 Mean Platelet Volume 7.3 FL Neutrophils (%) (Auto) 51.2 % Lymphocytes (%) (Auto) 30.8 % Monocytes (%) (Auto) 12.8 % Eosinophils (%) (Auto) 3.8 % Basophils (%) (Auto) 1.4 % Neutrophils # (Auto) 2.4 TH/MM3 Lymphocytes # (Auto) 1.4 TH/MM3 Monocytes # (Auto) 0.6 TH/MM3 Eosinophils # (Auto) 0.2 TH/MM3 Basophils # (Auto) 0.1 TH/MM3 CBC Comment DIFF FINAL Differential Comment Blood Urea Nitrogen 5 MG/DL Creatinine 0.83 MG/DL Random Glucose 85 MG/DL Calcium Level 8.2 MG/DL Magnesium Level 2.0 MG/DL Sodium Level 143 MEQ/L Potassium Level 3.5 MEQ/L Chloride Level 107 MEQ/L Carbon Dioxide Level 29.2 MEQ/L Anion Gap 7 MEQ/L Estimat Glomerular Filtration Rate 96 ML/MIN Total Creatine Kinase 894 U/L Creatine Kinase MB 17.8 NG/ML Creatine Kinase MB % 2.0 % Troponin I LESS THAN 0.02 NG/ML Lipase 781 U/L Ethyl Alcohol Level 430 MG/DL Prothrombin Time 9.7 SEC Prothromb Time International Ratio 1.0 RATIO Activated Partial Thromboplast Time 28.4 SEC [facility] Medical Decision Making Medical Screen Exam Complete: Yes Emergency Medical Condition: Yes Medical Record Reviewed: Yes Differential Diagnosis Alcohol intoxication, alcoholism, acute coronary syndrome, pulmonary embolism, pericarditis, myocarditis, aortic dissection, costochondritis, pancreatitis, pneumothorax, hemothorax Narrative Course The patient was placed on ECG monitoring pulse oximetry. 12-lead EKG was obtained revealing normal sinus rhythm. Plan is for lab work, chest x-ray. The patient will be given a full dose aspirin. CBC reveals no acute abnormalities. Total CK 894, lipase 781, alcohol 430. At this point time the plan is to admit the patient for serial cardiac enzymes and rule out purposes as well as IV fluids and monitoring for any signs of alcohol withdrawal. Discussed with the resident team who is agreeable with admission. Diagnosis Primary Impression: Chest pain Additional Impressions: Alcohol intoxication Pancreatitis Admitting Information Admitting Physician Requests: Admit Scripts No Active Prescriptions or Reported Meds Rafi Bettencourt March 04, 2018 09:47
[2018-03-04 09:56] LABS: AUTOMATED NEUTROPHIL # 2.4 TH/MM3 (1.8-7.7); BASOPHIL # 0.1 TH/MM3 (0-0.2); BASOPHIL % 1.4 % (0.0-2.0); EOSINOPHIL # 0.2 TH/MM3 (0-0.4); EOSINOPHIL % 3.8 % (0.0-4.0); HEMATOCRIT 42.5 % (39.0-51.0); HEMOGLOBIN 14.3 GM/DL (13.0-17.0); LYMPH % 30.8 % (9.0-44.0); LYMPHOCYTE # 1.4 TH/MM3 (1.0-4.8); MEAN CELL VOLUME 92.3 FL (80.0-100.0); MEAN CORPUSCULAR HEMOGLOBIN 31.2 PG (27.0-34.0); MEAN CORPUSCULAR HGB CONC 33.8 % (32.0-36.0); MEAN PLATELET VOLUME 7.3 FL (7.0-11.0); MONO % 12.8 % (0.0-8.0); MONOCYTE # 0.6 TH/MM3 (0-0.9); NEUT % 51.2 % (16.0-70.0); PLATELET COUNT 167 TH/MM3 (150-450); RED CELL DISTRIBUTION WIDTH 17.4 % (11.6-17.2); WHITE BLOOD COUNT 4.6 TH/MM3 (4.0-11.0)
[2018-03-04 10:33] LABS: BICARBONATE 29.2 MEQ/L (21.0-32.0); BLOOD UREA NITROGEN 5 MG/DL (7-18); CALCIUM 8.2 MG/DL (8.5-10.1); CHLORIDE 107 MEQ/L (98-107); CREATININE 0.83 MG/DL (0.60-1.30); GLOMERULAR FILTRATION RATE 96 ML/MIN (>89); GLUCOSE,RANDOM 85 MG/DL (74-106); SODIUM (NA) 143 MEQ/L (136-145)
[2018-03-04 10:41] LABS: TROPONIN I LESS THAN 0.02 NG/ML (0.02-0.05)
[2018-03-04 10:45] LABS: PROTHROMBIN TIME - PATIENT 9.7 SEC (9.8-11.6)
--- NOTE | 2018-03-04 10:52 | RADRPT ---
EXAM DATE: 03/04/2018 10:47 AM EDT AGE/SEX: 57 years / Male INDICATIONS: Chest and back pain for 2 months, smoker CLINICAL DATA: This is the patient's initial encounter. Patient reports that signs and symptoms have been present for 2 months and indicates a pain score of 10/10. MEDICAL/SURGICAL HISTORY: None. None. COMPARISON: [facility], CHEST PA & LAT, 12/12/2017. . FINDINGS: PA and lateral views of the chest demonstrate a normal-sized cardiac silhouette. There is no effusion , consolidation, or pneumothorax. The bones and soft tissues demonstrate no acute abnormality. EKG li guillermina overlie the patient. CONCLUSION: No acute cardiopulmonary abnormality is identified. Electronically signed by: Orion Nelson MD 03/04/2018 10:50 AM EDT
--- NOTE | 2018-03-04 11:13 | HHI.HP ---
[facility] Service Family Medicine Primary Care Physician Jayme Leal MD Admission Diagnosis Chest pain, pancreatitis, alcohol intoxication Diagnoses: International Travel<30 Days: No Contact w/Intl Traveler<30days: No Known Affected Area: No History of Present Illness Patient is a 57-year-old male with a history of many frequent emergency department visits for alcohol intoxication who presents under [facility] act for alcohol intoxication to the point of inability to care for himself complaining of substernal chest pain, back pain, sciatica, feet numbness. All of these problems have been going for a while now. He describes his chest pain as feeling like an "elephant sitting on my chest." He has had this chest pain for the past two months, but it has become worse within the past couple days. He reports that the chest pain is worse with walking around. He has not tried to take any medications to help. He denies any radiation of the pain. He reports associated shortness of breath and diaphoresis. He reports this is the severity of the pain is 10 out of 10. He reports the pain is getting worse. For the last month, his back pain has been getting worse. He reports associated sciatica. He denies any history of cancer, saddle paresthesias, urinary or bowel incontinence. His feet for last 3 years have been numb. He denies any history of diabetes. He reports a recent foot infection treated by [facility]. He spent 7 days there as an inpatient. Then he spent then 3-5 days here at [facility] for other foot. Patient reports drinking 4-8 16oz cans of steel reserve per day, today included. He reports a desire to quit drinking. He reports that he has a cough which is productive of yellow sputum. Denies any nausea, vomiting, shortness of breath, abdominal pain, diarrhea, constipation. Denies any illicit drug use. He has no other complaints at this time. He reports that he is currently hungry at this time. (Adrián Dotson MD R2) Review of Systems Other + fever or chills No polyuria, polydipsia Denies vision changes, eye pain, hearing changes, rhinorrhea, + recent sore throat + recent sore throat, runny nose, productive cough + chest pain, palpitations, racing heart, shortness of breath No abdominal pain + constipation, no diarrhea, nausea, vomiting, black or bloody stools No dysuria, hematuria + back pain, sciatica, diffuse muscle/joint pain, weakness, headache No rashes, + itching (Adrián Dotson MD R2) Past Family Social History Past Medical History Alcohol Abuse and Tobacco Abuse PAST FAMILY HISTORY: Social History PAST SOCIAL HISTORY: Drinks 6 pack of beer daily. Smokes 1-1.5ppd. Negative for drugs. wants nicotine patch. wants to quit alcohol. Past Surgical History Hiatal Hernia, Bilateral Foot Surgery Reported Medications Reported Meds & Active Scripts Active No Active Prescriptions or Reported Medications (Adrián Dotson MD R2) Allergies: Coded Allergies: No Known Allergies (Verified Adverse Reaction, Unknown, 03/04/18) Active Ordered Medications Current Medications Medications (Trade) Dose Ordered Sig/Griffin Route Start Time Stop Time Status Last Admin (NS Flush) 2 ml BID IV FLUSH 03/04/18 21:00 (NS Flush) 2 ml UNSCH PRN IV FLUSH 03/04/18 11:45 (Nitrostat Sl) 0.4 mg Q5M PRN SL 03/04/18 11:45 (Tylenol) 650 mg Q6H PRN PO 03/04/18 11:45 (Colace) 100 mg BID PRN PO 03/04/18 11:45 (Xanax) 0.25 mg Q8H PRN PO 03/04/18 11:45 (Lovenox Inj) 40 mg Q24H SQ 03/04/18 13:00 Lactated Ringer's 1,000 ml @ 125 mls/hr Q8H IV 03/04/18 11:38 03/04/18 12:25 (Protonix) 40 mg DAILY PO 03/04/18 11:45 03/04/18 12:22 (Morphine Inj) 1 mg Q1H PRN IV PUSH 03/04/18 12:00 (Zofran Odt) 4 mg Q4H PRN PO 03/04/18 12:00 (Romazicon Inj) 0.2 mg Q1M PRN IV PUSH 03/04/18 12:15 (Ativan) 1 mg Q4H PRN PO 03/04/18 12:15 (Ativan Inj) 1 mg Q4H PRN IV PUSH 03/04/18 12:15 (Ativan) 2 mg Q2H PRN PO 03/04/18 12:15 (Ativan Inj) 2 mg Q2H PRN IV PUSH 03/04/18 12:15 (Ativan Inj) 2 mg Q1H PRN IV PUSH 03/04/18 12:15 (Ativan Inj) 2 mg Q15M PRN IV PUSH 03/04/18 12:15 (Theragran) 1 tab DAILY PO 03/04/18 12:30 03/04/18 12:49 (Folate) 1 mg DAILY PO 03/04/18 12:30 03/04/18 12:46 (Vitamin B1) 100 mg DAILY PO 03/04/18 12:30 03/04/18 12:49 Family History dad HTN, heart problems, CVAs, from burn injuries. mom had HTN. 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 (Adrián Dotson MD R2) Physical Exam Vital Signs Vital Signs Date Time Temp Pulse Resp B/P (MAP) Pulse Ox O2 Delivery O2 Flow Rate FiO2 03/04/18 09:19 97.6 72 16 130/86 (101) 98 Physical Exam GENERAL: This is a well-nourished, well-developed patient, in no apparent distress. SKIN: No rashes, ecchymoses or lesions. Cool and dry. HEAD: Atraumatic. Normocephalic. EYES: Pupils equal round and reactive. Extraocular motions intact. No scleral icterus. No injection or drainage. ENT: Nose without bleeding, purulent drainage or septal hematoma. Throat without erythema, tonsillar hypertrophy or exudate. Uvula midline. Airway patent. NECK: Trachea midline. No JVD or lymphadenopathy. Supple, nontender, no meningeal signs. CARDIOVASCULAR: Regular rate and rhythm without murmurs, gallops, or rubs. RESPIRATORY: Clear to auscultation. Breath sounds equal bilaterally. No wheezes , rales, or rhonchi. GASTROINTESTINAL: Abdomen soft, non-tender, nondistended. No rebounding or guarding. MUSCULOSKELETAL: Extremities without clubbing, cyanosis, or edema. No joint tenderness, effusion, or edema noted. No calf tenderness. NEUROLOGICAL: Awake and alert. Cranial nerves II through XII grossly intact. Motor and sensory grossly within normal limits. Normal speech. Laboratory Laboratory Tests Test 03/04/18 09:20 03/04/18 10:20 White Blood Count 4.6 Red Blood Count 4.60 Hemoglobin 14.3 Hematocrit 42.5 Mean Corpuscular Volume 92.3 Mean Corpuscular Hemoglobin 31.2 Mean Corpuscular Hemoglobin Concent 33.8 Red Cell Distribution Width 17.4 Platelet Count 167 Mean Platelet Volume 7.3 Neutrophils (%) (Auto) 51.2 Lymphocytes (%) (Auto) 30.8 Monocytes (%) (Auto) 12.8 Eosinophils (%) (Auto) 3.8 Basophils (%) (Auto) 1.4 Neutrophils # (Auto) 2.4 Lymphocytes # (Auto) 1.4 Monocytes # (Auto) 0.6 Eosinophils # (Auto) 0.2 Basophils # (Auto) 0.1 CBC Comment DIFF FINAL Differential Comment Blood Urea Nitrogen 5 Creatinine 0.83 Random Glucose 85 Calcium Level 8.2 Magnesium Level 2.0 Sodium Level 143 Potassium Level 3.5 Chloride Level 107 Carbon Dioxide Level 29.2 Anion Gap 7 Estimat Glomerular Filtration Rate 96 Total Creatine Kinase 894 Creatine Kinase MB 17.8 Creatine Kinase MB % 2.0 Troponin I LESS THAN 0.02 Lipase 781 Ethyl Alcohol Level 430 Prothrombin Time 9.7 Prothromb Time International Ratio 1.0 Activated Partial Thromboplast Time 28.4 (Adrián Dotson MD R2) Result Diagram: 03/04/1891903/04/18919 Imaging Last Impressions Chest X-Ray 03/04/18 09 Signed Impressions: CONCLUSION: No acute cardiopulmonary abnormality is identified. Course In the emergency department, patient had alcohol level, chest x-ray, aspirin, lipase, troponin, APTT, PT/INR, magnesium, CBC, CK-MB, BMP, EKG, normal saline IV, admission order. (Adrián Dotson MD R2) Caprini VTE Risk Assessment Caprini VTE Risk Assessment: No/Low Risk (score <= 1) Caprini Risk Assessment Model Point Value = 1 Point Value = 2 Point Value = 3 Point Value = 5 Age 41-60 Minor surgery BMI > 25 kg/m2 Swollen legs Varicose veins or History of unexplained or recurrent spontaneous Oral contraceptives or hormone replacement Sepsis (< 1 month) Serious lung disease, including pneumonia (< 1 month) Abnormal pulmonary function Acute myocardial infarction Congestive heart failure (< 1 month) History of inflammatory bowel disease Medical patient at bed rest Age 61-74 Arthroscopic surgery Major open surgery (> 45 min) Laparoscopic surgery (> 45 min) Malignancy Confined to bed (> 72 hours) Immobilizing plaster cast Central venous access Age >= 75 History of VTE Family history of VTE Factor V Leiden Prothrombin [id number] Lupus anticoagulant Anticardiolipin antibodies Elevated serum homocysteine Heparin-induced thrombocytopenia Other congenital or acquired thrombophilia Stroke (< 1 month) Elective arthroplasty Hip, pelvis, or leg fracture Acute spinal cord injury (< 1 month) Prophylaxis Regimen Total Risk Factor Score Risk Level Prophylaxis Regimen 0-1 Low Early ambulation 2 Moderate Order ONE of the following: *Sequential Compression Device (SCD) *Heparin 5000 units SQ BID 3-4 Higher Order ONE of the following medications: *Heparin 5000 units SQ TID *Enoxaparin/Lovenox 40 mg SQ daily (WT < 150 kg, CrCl > 30 mL/min) *Enoxaparin/Lovenox 30 mg SQ daily (WT < 150 kg, CrCl > 10-29 mL/min) *Enoxaparin/Lovenox 30 mg SQ BID (WT < 150 kg, CrCl > 30 mL/min) AND/OR *Sequential Compression Device (SCD) 5 or more Highest Order ONE of the following medications: *Heparin 5000 units SQ TID (Preferred with Epidurals) *Enoxaparin/Lovenox 40 mg SQ daily (WT < 150 kg, CrCl > 30 mL/min) *Enoxaparin/Lovenox 30 mg SQ daily (WT < 150 kg, CrCl > 10-29 mL/min) *Enoxaparin/Lovenox 30 mg SQ BID (WT < 150 kg, CrCl > 30 mL/min) AND *Sequential Compression Device (SCD) (Adrián Dotson MD R2) Assessment and Plan Assessment and Plan A/P: Patient is a 57-year-old male with a history of many frequent emergency department visits for alcohol intoxication who presents under [place] act for alcohol intoxication to the point of inability to care for himself complaining of substernal chest pain, back pain, sciatica, feet numbness. 1. Chest Pain: likely secondary to chronic MSK pain or pancreatitis, initial trop negative, CK-MB elevated at 17.8, EKG w/ no acute ischemia. R/o ACS. Telemetry. Check serial cardiac enzymes, NTG/Morphine prn as needed. 2. Pancreatitis: Lipase 781, no epigastric tenderness on exam. Advance diet as tolerated, Protonix p.o., IVF, repeat Lipase, analgesics/antiemetics as needed. 3. Elevated CK of 894:, Check U/a, IVF for hydration, repeat CK for trend. 4. Alcohol Abuse: Drinks 6-pack of malt liquor/beer daily, high risk for withdrawal. CIWA, Seizure Precautions, MVT/Thiamine/Folate PO replacement. Case management consulted. 5. DVT Prophylaxis: SCD/Teds because of fall risk and patient refusal. 6. Social work for d/c planning as needed. Case discussed w/ ER provider, labs/records/imaging reviewed by me. Code Status Full code (Adrián Dotson MD R2) Attending Attestation Patient seen and examined, discussed with resident team. I agree with assessment and management as documented and discussed with me. Berny Archuleta is a 57yo gentleman with known alcohol abuse and frequent ER visits admitted under observation for chest pain and alcohol intoxication. He reports chest pain x 1 week, mid to left anterior chest without radiation. Worse with exertion. He is being admitted for chest pain evaluation with serial troponin, ekgs. In addition, CIWA protocol initiated for alcohol abuse. He has a h/o alcohol withdrawal seizures. (Yolande Harris MD) Problem List: (1) Chest pain ICD Codes: R07.9 - Chest pain, unspecified (2) Pancreatitis ICD Codes: K85.90 - Acute pancreatitis without necrosis or infection, unspecified (3) Elevated CPK ICD Codes: R74.8 - Abnormal levels of other serum enzymes Status: Acute (4) Alcohol intoxication ICD Codes: F10.129 - Alcohol abuse with intoxication, unspecified Status: Acute (5) Contraindication to anticoagulation therapy ICD Codes: Z53.09 - Procedure and treatment not carried out because of other contraindication Plan: High fall risk. Thus, chemical anticoagulation contraindicated. -SCDs bilaterally. (6) Nutrition, metabolism, and development symptoms ICD Codes: R63.8 - Other symptoms and signs concerning food and fluid intake Plan: Fluids: LR IV at 125 mL/h Electrolytes: Monitor and replete Nutrition: Soft diet ordered, advance as tolerated GI prophylaxis: Protonix p.o. (Adrián Dotson MD R2) Adrián Dotson MD R2 March 04, 2018 11:13 Yolande Harris MD March 04, 2018 20:23
[2018-03-04] MEDS ORDERED: SODIUM CHLORIDE 0.9% FLUSH 10 ML FLUSH IV FLUSH PRN (11:45)
[2018-03-04] MEDS ORDERED: ALPRAZolam 0.25 MG TAB PO PRN (11:45)
[2018-03-04] MEDS ORDERED: ACETAMINOPHEN 325 MG TAB PO PRN (11:45)
[2018-03-04] MEDS ORDERED: KETOROLAC TROMETHAMINE 30 MG/ML (IVP) VIAL IVP PRN (11:45)
[2018-03-04] MEDS ORDERED: NITROGLYCERIN 0.4 MG SL 25 TABS/BTL SL PRN (11:45)
[2018-03-04] MEDS ORDERED: DOCUSATE SODIUM 100 MG CAP PO PRN (11:45)
[2018-03-04] MEDS: SODIUM CHLOR 0.9% 1000 ML INJ 1,000 ML IV SCH ×2 (11:51→12:16)
[2018-03-04] MEDS ORDERED: ONDANSETRON ODT 4 MG TAB PO PRN (12:00)
[2018-03-04] MEDS ORDERED: MORPHINE SULFATE 4 MG/ML INJ IV PUSH PRN (12:00)
[2018-03-04] MEDS: PANTOPRAZOLE SOD 40 MG DELAYED RELEASE TAB PO SCH ×2 (12:14→12:22)
[2018-03-04] MEDS ORDERED: LORazepam 1 MG TAB PO PRN (12:15)
[2018-03-04] MEDS ORDERED: LORazepam 2 MG/ML VIAL IV PUSH PRN ×4 (12:15)
[2018-03-04] MEDS ORDERED: FLUMAZENIL 0.5 MG/5 ML VIAL IV PUSH PRN (12:15)
[2018-03-04] MEDS: LACTATED RINGER'S 1000 ML INJ 1,000 ML IV SCH ×2 (12:25→23:22)
[2018-03-04] MEDS: FOLIC ACID 1 MG TAB PO SCH (12:46)
[2018-03-04] MEDS: MULTIVITAMIN TAB PO SCH (12:49)
[2018-03-04] MEDS: THIAMINE HCL 100 MG TAB PO SCH (12:49)
[2018-03-04] MEDS: ENOXAPARIN SODIUM 40 MG/0.4 ML SYRINGE SQ SCH ×2 (13:00→13:13)
[2018-03-04] MEDS: SODIUM CHLORIDE 0.9% FLUSH 10 ML FLUSH IV FLUSH SCH (21:00)
[2018-03-04] MEDS: LORazepam 2 MG TAB PO PRN (21:05)
[2018-03-05 00:15] LABS: TROPONIN I LESS THAN 0.02 NG/ML (0.02-0.05)
[2018-03-05 00:32] VITALS: BP 147/82; PULSE 88; RESP 16; TEMP 98.4; O2SAT 98
[2018-03-05] MEDS: LORazepam 2 MG TAB PO PRN (02:36)
[2018-03-05] MEDS: LACTATED RINGER'S 1000 ML INJ 1,000 ML IV SCH (03:38)
[2018-03-05 03:48] VITALS: BP 140/81; PULSE 85; RESP 16; TEMP 98.5; O2SAT 97
[2018-03-05 07:08] LABS: AUTOMATED NEUTROPHIL # 2.6 TH/MM3 (1.8-7.7); BASOPHIL # 0.1 TH/MM3 (0-0.2); BASOPHIL % 1.8 % (0.0-2.0); EOSINOPHIL # 0.1 TH/MM3 (0-0.4); EOSINOPHIL % 2.4 % (0.0-4.0); HEMATOCRIT 35.2 % (39.0-51.0); HEMOGLOBIN 11.9 GM/DL (13.0-17.0); LYMPH % 21.7 % (9.0-44.0); LYMPHOCYTE # 0.9 TH/MM3 (1.0-4.8); MEAN CELL VOLUME 91.7 FL (80.0-100.0); MEAN CORPUSCULAR HEMOGLOBIN 30.9 PG (27.0-34.0); MEAN CORPUSCULAR HGB CONC 33.7 % (32.0-36.0); MEAN PLATELET VOLUME 7.8 FL (7.0-11.0); MONO % 9.5 % (0.0-8.0); MONOCYTE # 0.4 TH/MM3 (0-0.9); NEUT % 64.6 % (16.0-70.0); PLATELET COUNT 140 TH/MM3 (150-450); RED BLOOD COUNT 3.85 MIL/MM3 (4.50-5.90); RED CELL DISTRIBUTION WIDTH 16.9 % (11.6-17.2)
[2018-03-05 07:30] LABS: BICARBONATE 27.5 MEQ/L (21.0-32.0); CALCIUM 8.1 MG/DL (8.5-10.1); CREATININE 0.72 MG/DL (0.60-1.30)
[2018-03-05 07:31] VITALS: PULSE 103
[2018-03-05 07:34] VITALS: BP 142/89; PULSE 67; RESP 18; TEMP 96.1; O2SAT 96
[2018-03-05 08:00] VITALS: TEMP 96.1
[2018-03-05] MEDS ORDERED: PANTOPRAZOLE SOD 40 MG DELAYED RELEASE TAB PO ONE (08:45)
[2018-03-05] MEDS: SODIUM CHLORIDE 0.9% FLUSH 10 ML FLUSH IV FLUSH SCH ×2 (09:00→09:07)
--- NOTE | 2018-03-05 09:00 | HHI.FPPN ---
Subjective Remarks No acute issues overnight. Vitals are stable, patient remains afebrile. He notes that he is withdrawing from alcohol this morning. He continues to have pain in the epigastric region but denies any chest pain, shortness of breath, fever, chills, or vomiting. He is tolerating PO. (Una Jones MD R3) Objective Vitals Vital Signs Date Time Temp Pulse Resp B/P (MAP) Pulse Ox O2 Delivery O2 Flow Rate FiO2 03/05/18 07:34 96.1 67 18 142/89 (106) 96 03/05/18 03:48 98.5 85 16 140/81 (100) 97 03/05/18 03:05 21 03/05/18 00:32 98.4 88 16 147/82 (103) 98 03/04/18 23:00 84 03/04/18 21:23 98.2 78 16 135/78 (97) 96 03/04/18 16:47 98 03/04/18 15:29 97.6 73 16 107/64 (78) 96 03/04/18 13:20 97.8 78 18 124/78 (93) 98 03/04/18 12:30 98 Room Air 03/04/18 12:30 18 98 Room Air 03/04/18 11:00 97.8 78 18 138/77 (97) 98 Room Air 03/04/18 09:25 98.1 75 15 113/77 (89) 99 Room Air 03/04/18 09:25 78 18 03/04/18 09:19 97.6 72 16 130/86 (101) 98 I/O 03/04/18 03/04/18 03/04/18 03/05/18 03/05/18 03/05/18 07:00 15:00 23:00 07:00 15:00 23:00 Intake Total 1000 ml 1000 ml Balance 1000 ml 1000 ml Intake IV Total 1000 ml 1000 ml # Voids 2 # Bowel Movements 1 (Una Jones MD R3) Result Diagram: 03/05/18 0504 03/05/18 0504 Imaging Last Impressions Chest X-Ray 03/04/18 0944 Signed Impressions: CONCLUSION: No acute cardiopulmonary abnormality is identified. Objective Remarks GENERAL: Well-nourished, well-developed male in no acute distress. SKIN: Warm and dry. HEAD: Normocephalic. EYES: No scleral icterus. No injection or drainage. NECK: Supple, trachea midline. No JVD or lymphadenopathy. CARDIOVASCULAR: Regular rate and rhythm without murmurs, gallops, or rubs. RESPIRATORY: Breath sounds equal bilaterally. No accessory muscle use. GASTROINTESTINAL: Abdomen soft, mildly tender to palpation in epigastric and LUQ , nondistended. MUSCULOSKELETAL: No cyanosis, or edema. (Una Jones MD R3) A/P Assessment and Plan Patient is a 57-year-old male with a history of many frequent emergency department visits for alcohol intoxication who presents under [facility] act for alcohol intoxication to the point of inability to care for himself complaining of substernal chest pain, back pain, sciatica, feet numbness. 1. Chest Pain: Resolved. Likely secondary to chronic MSK pain or pancreatitis, troponins wnl, CK-MB elevated on admission, trending down. EKG w/ no acute ischemia. No events on telemetry. NTG/Morphine prn as needed. 2. Pancreatitis: Lipase 781 on admission, trending down to wnl today. Epigastric tenderness today on exam, however patient tolerating PO. Protonix p.o., IVF, analgesics/antiemetics as needed. 3. Elevated CK of 894 on admission, trending down to 547 this AM. IVF for hydration. 4. Alcohol Abuse: Drinks 6-pack of malt liquor/beer daily, high risk for withdrawal. CIWA, Seizure Precautions, MVT/Thiamine/Folate PO replacement. Case management consulted. 5. DVT Prophylaxis: SCD/Teds because of fall risk and patient refusal of chemical anticoagulation. 6. Social work for d/c planning as needed. Anticipate discharge home today. (Una Jones MD R3) Attending Attestation Attending note: Patient seen, examined, and discussed with resident team. I agree with assessment and management as documented and discussed with me. Pt reports no new concerns. He feels ready for discharge. (Yolande Harris MD) Problem List: (1) Chest pain ICD Codes: R07.9 - Chest pain, unspecified Status: Resolved (2) Pancreatitis ICD Codes: K85.90 - Acute pancreatitis without necrosis or infection, unspecified (3) Elevated CPK ICD Codes: R74.8 - Abnormal levels of other serum enzymes Status: Acute (4) Alcohol intoxication ICD Codes: F10.129 - Alcohol abuse with intoxication, unspecified Status: Resolved (5) Contraindication to anticoagulation therapy ICD Codes: Z53.09 - Procedure and treatment not carried out because of other contraindication Status: Acute Plan: High fall risk. Thus, chemical anticoagulation contraindicated. -SCDs bilaterally. (6) Nutrition, metabolism, and development symptoms ICD Codes: R63.8 - Other symptoms and signs concerning food and fluid intake Status: Acute Plan: Fluids: LR IV at 125 mL/h Electrolytes: Monitor and replete Nutrition: Regular diet GI prophylaxis: Protonix p.o. (Una Jones MD R3) Problem Qualifiers (1) Chest pain: Qualified Codes: R07.89 - Other chest pain (2) Pancreatitis: Qualified Codes: K85.20 - Alcohol induced acute pancreatitis without necrosis or infection Una Jones MD R3 March 05, 2018 09:00 Yolande Harris MD March 06, 2018 15:06
[2018-03-05] MEDS ORDERED: PANT40TA3 PO (09:01)
--- NOTE | 2018-03-05 09:01 | HHI.DCPOC ---
Discharge Care Plan Diagnosis: (1) Alcohol dependence with uncomplicated intoxication Goals to Promote Your Health * To prevent worsening of your condition and complications * To maintain your health at the optimal level Directions to Meet Your Goals Take your medications as prescribed Follow your dietary instruction Follow activity as directed Keep your appointments as scheduled Take your immunizations and boosters as scheduled If your symptoms worsen call your PCP, if no PCP go to Urgent Care Center or Emergency Room Smoking is Dangerous to Your Health. Avoid second hand smoke Call the 24-hour hour crisis hotline for domestic abuse at Una Jones MD R3 March 05, 2018 09:01
[2018-03-05] MEDS: FOLIC ACID 1 MG TAB PO SCH (09:04)
[2018-03-05] MEDS: MULTIVITAMIN TAB PO SCH (09:04)
[2018-03-05] MEDS: THIAMINE HCL 100 MG TAB PO SCH (09:04)
--- NOTE | 2018-03-05 14:05 | EKG ---
Date Performed: 03/04/2018 Time Performed: 23:36:48 PTAGE: 57 years EKG: Sinus rhythm NORMAL ECG PREVIOUS TRACING : 03/04/2018 17.23 DOCTOR: Gonzalez Randolph Interpretating Date/Time 03/05/2018 14:03:46
--- NOTE | 2018-03-05 14:12 | EKG ---
Date Performed: 03/04/2018 Time Performed: 17:23:04 PTAGE: 57 years EKG: Sinus rhythm NORMAL ECG PREVIOUS TRACING : 03/04/2018 09.49 DOCTOR: Gonzalez Randolph Interpretating Date/Time 03/05/2018 14:11:22
--- NOTE | 2018-03-05 14:33 | EKG ---
Date Performed: 03/04/2018 Time Performed: 09:49:30 PTAGE: 57 years EKG: Sinus rhythm POSSIBLE RIGHT VENTRICULAR CONDUCTION DELAY BORDERLINE ECG PREVIOUS TRACING : 02/15/2018 15.23 DOCTOR: Gonzalez Randolph Interpretating Date/Time 03/05/2018 14:30:41
[2018-03-06] MEDS ORDERED: PANTOPRAZOLE SOD 40 MG DELAYED RELEASE TAB PO SCH (09:00)
== END 2018-03-05 13:31 | disposition home or self-care (01) | DRG 896 ==
LOC: NEPD 09:07 → NEDA 11:08 → NEPFCDU 13:27
PROVIDERS: ADMIT Family Medicine; ATTEND Family Medicine
DX: F10.129 Alcohol abuse with intoxication, unspecified (principal); K85.20 Alcohol induced acute pancreatitis without necrosis or infection; I10 Essential (primary) hypertension; I25.2 Old myocardial infarction; R07.89 Other chest pain; J44.9 Chronic obstructive pulmonary disease, unspecified; F17.210 Nicotine dependence, cigarettes, uncomplicated; Z87.442 Personal history of urinary calculi
CPT/HCPCS: 71046; 80048; 80307; 82550; 82552; 83690; 83735; 84484; 85025; 85610; 85730; 93005; J1650; J7030; J7120

== ENCOUNTER 2018-03-23 12:54 | Emergency (ER) | payer SELFPAY ==
[~2018-03-23] VITALS: Ht 182.9 cm; Wt 80.0 kg
[~2018-03-23 12:54] MED LIST changes: -CLOT1CRE8 TOPICAL; +PANT40TA3 PO; -QC B500O TOPICAL; -THIA100 PO
[2018-03-23 13:00] VITALS: BP 127/75; PULSE 94; RESP 17; TEMP 98.6; O2SAT 98
[2018-03-23] MEDS ORDERED: MORPHINE SULFATE 4 MG/ML INJ IV PUSH ONE (13:00)
[2018-03-23] MEDS ORDERED: SODIUM CHLOR 0.9% 1000 ML INJ 1,000 ML IV SCH (13:00)
[2018-03-23] MEDS ORDERED: ONDANSETRON ODT 4 MG TAB PO ONE (13:00)
[2018-03-23] MEDS ORDERED: SODIUM CHLORIDE 0.9% FLUSH 10 ML FLUSH IV FLUSH PRN (13:00)
--- NOTE | 2018-03-23 13:06 | PD ---
HPI Chief Complaint: Chest Pain Time Seen by Provider: 13:00 Travel History International Travel<30 days: No Contact w/Intl Traveler<30days: No Traveled to known affect area: No History of Present Illness HPI The patient is a 57-year-old male who presents to the emergency department via EMS for epigastric abdominal pain. The patient states he has a history of intermittent epigastric abdominal pain the pain is located epigastrium, moderate, radiates to the back, described as sharp and burning. He does complain of mild nausea without any vomiting. The patient does state he has been hospitalized several times for these symptoms. He does have a history of alcohol abuse, last drink of alcohol was this morning. Symptoms are moderate. Possibly exacerbated by drinking, no current alleviating factors. He denies any shortness of breath or diaphoresis. The patient denies any upper chest pain or pressure. He denies any exertional symptoms. PFSH Past Medical History Hx Anticoagulant Therapy: No Anemia: Yes Autoimmune Disease: No Anxiety: Yes Depression: No Cancer: No Cardiovascular Problems: No Chemotherapy: No Cerebrovascular Accident: No Diabetes: No Diminished Hearing: No Endocrine: No Gastrointestinal Disorders: Yes (GI BLEED) Genitourinary: No Hiatal Hernia: Yes Hypertension: Yes Immune Disorder: No Implanted Vascular Access Dvce: No Kidney Stones: Yes Musculoskeletal: No Neurologic: Yes Psychiatric: No Reproductive: No Respiratory: Yes (COPD) Immunizations Current: Yes Myocardial Infarction: Yes Seizures: Yes (ALCOHOL RELATED) Thyroid Disease: No Ulcer: Yes Past Surgical History Abdominal Surgery: Yes (Hernia repair) Hysterectomy: No Other Surgery: Yes (HIATAL HERNIA 1978) Social History Alcohol Use: Yes ("as much and when I can get it") Tobacco Use: Yes (1-1/2 packs per day) Substance Use: No (hx of drug abuse) Allergies-Medications (Allergen,Severity, Reaction): Coded Allergies: No Known Allergies (Verified Adverse Reaction, Unknown, 03/04/18) Reported Meds & Prescriptions Reported Meds & Active Scripts Active Pantoprazole (Pantoprazole Sodium) 40 Mg Tab 40 Mg PO DAILY Review of Systems Except as stated in HPI: all other systems reviewed are Neg General / Constitutional: No: Fever HENT: No: Lightheadedness Cardiovascular: No: Chest Pain or Discomfort Respiratory: No: Shortness of Breath Gastrointestinal: Positive: Nausea, Abdominal Pain, No: Vomiting Neurologic: No: Dizziness Psychiatric: Positive: Substance Abuse (Alcohol abuse) Physical Exam Narrative GENERAL: Awake, alert, pleasant 57-year-old male who appears his stated age and is in no acute respiratory distress. Disheveled appearance. SKIN: Focused skin assessment warm/dry. HEAD: Atraumatic. Normocephalic. EYES: Pupils equal and round. No scleral icterus. No injection or drainage. ENT: No nasal bleeding or discharge. Breath smells of alcohol. NECK: Trachea midline. No JVD. CARDIOVASCULAR: Regular rate and rhythm. No murmur appreciated. RESPIRATORY: No accessory muscle use. Clear to auscultation. Breath sounds equal bilaterally. GASTROINTESTINAL: Abdomen soft, mild epigastric tenderness. No guarding or rigidity. MUSCULOSKELETAL: No obvious deformities. No clubbing. No cyanosis. No edema. NEUROLOGICAL: Awake and alert. No obvious cranial nerve deficits. Motor grossly within normal limits. Normal speech. Nonfocal. Oriented 4. PSYCHIATRIC: Appropriate mood and affect; insight and judgment normal. Data Data Last Documented VS Vital Signs Date Time Temp Pulse Resp B/P (MAP) Pulse Ox O2 Delivery O2 Flow Rate FiO2 03/23/18 13:07 94 17 96 Room Air 03/23/18 13:00 98.6 127/75 (92) Orders Orders Complete Blood Count With Diff (03/23/18 13:00) Comprehensive Metabolic Panel (03/23/18 13:00) Lipase (03/23/18 13:00) Iv Access Insert/Monitor (03/23/18 13:00) Ecg Monitoring (03/23/18 13:00) Oximetry (03/23/18 13:00) Morphine Inj (Morphine Inj) (03/23/18 13:00) Sodium Chlor 0.9% 1000 Ml Inj (Ns 1000 M (03/23/18 13:00) Sodium Chloride 0.9% Flush (Ns Flush) (03/23/18 13:00) Troponin I (03/23/18 13:00) Creatine Kinase (Cpk) (03/23/18 13:00) Alcohol (Ethanol) (03/23/18 13:00) Ondansetron Odt (Zofran Odt) (03/23/18 13:00) CKMB (03/23/18 13:00) CKMB% (03/23/18 13:00) Troponin I (03/23/18 16:00) Electrocardiogram (03/23/18 13:09) Labs Laboratory Tests Test 03/23/18 13:00 03/23/18 15:50 White Blood Count 4.2 TH/MM3 Red Blood Count 4.15 MIL/MM3 Hemoglobin 13.1 GM/DL Hematocrit 38.8 % Mean Corpuscular Volume 93.3 FL Mean Corpuscular Hemoglobin 31.6 PG Mean Corpuscular Hemoglobin Concent 33.9 % Red Cell Distribution Width 16.2 % Platelet Count 179 TH/MM3 Mean Platelet Volume 7.2 FL Neutrophils (%) (Auto) 47.5 % Lymphocytes (%) (Auto) 33.4 % Monocytes (%) (Auto) 14.7 % Eosinophils (%) (Auto) 3.1 % Basophils (%) (Auto) 1.3 % Neutrophils # (Auto) 2.0 TH/MM3 Lymphocytes # (Auto) 1.4 TH/MM3 Monocytes # (Auto) 0.6 TH/MM3 Eosinophils # (Auto) 0.1 TH/MM3 Basophils # (Auto) 0.1 TH/MM3 CBC Comment DIFF FINAL Differential Comment Blood Urea Nitrogen 4 MG/DL Creatinine 0.75 MG/DL Random Glucose 104 MG/DL Total Protein 7.1 GM/DL Albumin 3.9 GM/DL Calcium Level 7.7 MG/DL Alkaline Phosphatase 125 U/L Aspartate Amino Transf (AST/SGOT) 185 U/L Alanine Aminotransferase (ALT/SGPT) 128 U/L Total Bilirubin 0.4 MG/DL Sodium Level 138 MEQ/L Potassium Level 3.6 MEQ/L Chloride Level 107 MEQ/L Carbon Dioxide Level 19.8 MEQ/L Anion Gap 11 MEQ/L Estimat Glomerular Filtration Rate 108 ML/MIN Total Creatine Kinase 581 U/L Creatine Kinase MB 7.4 NG/ML Creatine Kinase MB % 1.3 % Troponin I LESS THAN 0.02 NG/ML LESS THAN 0.02 NG/ML Lipase 308 U/L Ethyl Alcohol Level 335 MG/DL [facility] Medical Decision Making Medical Screen Exam Complete: Yes Emergency Medical Condition: Yes Medical Record Reviewed: Yes Interpretation(s) EKG reveals normal sinus rhythm with a rate 85. ST elevation noted in V2 of 1 mm not seen in lead V1 or V3. Laboratory Tests Test 03/23/18 13:00 03/23/18 15:50 White Blood Count 4.2 TH/MM3 Red Blood Count 4.15 MIL/MM3 Hemoglobin 13.1 GM/DL Hematocrit 38.8 % Mean Corpuscular Volume 93.3 FL Mean Corpuscular Hemoglobin 31.6 PG Mean Corpuscular Hemoglobin Concent 33.9 % Red Cell Distribution Width 16.2 % Platelet Count 179 TH/MM3 Mean Platelet Volume 7.2 FL Neutrophils (%) (Auto) 47.5 % Lymphocytes (%) (Auto) 33.4 % Monocytes (%) (Auto) 14.7 % Eosinophils (%) (Auto) 3.1 % Basophils (%) (Auto) 1.3 % Neutrophils # (Auto) 2.0 TH/MM3 Lymphocytes # (Auto) 1.4 TH/MM3 Monocytes # (Auto) 0.6 TH/MM3 Eosinophils # (Auto) 0.1 TH/MM3 Basophils # (Auto) 0.1 TH/MM3 CBC Comment DIFF FINAL Differential Comment Blood Urea Nitrogen 4 MG/DL Creatinine 0.75 MG/DL Random Glucose 104 MG/DL Total Protein 7.1 GM/DL Albumin 3.9 GM/DL Calcium Level 7.7 MG/DL Alkaline Phosphatase 125 U/L Aspartate Amino Transf (AST/SGOT) 185 U/L Alanine Aminotransferase (ALT/SGPT) 128 U/L Total Bilirubin 0.4 MG/DL Sodium Level 138 MEQ/L Potassium Level 3.6 MEQ/L Chloride Level 107 MEQ/L Carbon Dioxide Level 19.8 MEQ/L Anion Gap 11 MEQ/L Estimat Glomerular Filtration Rate 108 ML/MIN Total Creatine Kinase 581 U/L Creatine Kinase MB 7.4 NG/ML Creatine Kinase MB % 1.3 % Troponin I LESS THAN 0.02 NG/ML LESS THAN 0.02 NG/ML Lipase 308 U/L Ethyl Alcohol Level 335 MG/DL Differential Diagnosis Differential diagnosis includes pancreatitis, gastritis, peptic ulcer disease, STEMI, acute coronary syndrome, alcohol abuse, alcohol intoxication, electrolyte abnormality. Narrative Course IV was established, labs are drawn and sent, the patient is placed on cardiac telemetry monitoring and continuous pulse oximetry monitoring. EKG was ordered and interpreted. Lipase, CPK, troponin were sent to lab. The patient was administered IV fluids, morphine, and Zofran. The patient's alcohol level is elevated 335. Initial troponin is negative. CPK is mildly elevated and AST and ALT are mildly elevated. Patient most likely has alcoholic gastritis, 3 hour troponin level was ordered for 1600. The patient is advised to decrease his alcohol intake and to continue taking his proton pump inhibitor. The patient's second troponin is less than 0.02. The patient is advised to decrease his alcohol intake, take his PPI, follow-up with a primary physician. Diagnosis Primary Impression: Epigastric abdominal pain Additional Impression: Alcohol intoxication Qualified Codes: F10.920 - Alcohol use, unspecified with intoxication, uncomplicated Patient Instructions: General Instructions Additional Instructions: Continue proton pump inhibitor as previously directed. Decrease alcohol intake. Follow-up with your primary physician. Med/Other Pt SpecificInfo: No Change to Meds Disposition: 01 DISCHARGE HOME Condition: Stable Femi Fink MD Mar 23, 2018 13:06
[2018-03-23 13:07] VITALS: O2SAT 98
[2018-03-23 13:18] LABS: BASOPHIL # 0.1 TH/MM3 (0-0.2); BASOPHIL % 1.3 % (0.0-2.0); EOSINOPHIL # 0.1 TH/MM3 (0-0.4); EOSINOPHIL % 3.1 % (0.0-4.0); HEMATOCRIT 38.8 % (39.0-51.0); HEMOGLOBIN 13.1 GM/DL (13.0-17.0); LYMPH % 33.4 % (9.0-44.0); LYMPHOCYTE # 1.4 TH/MM3 (1.0-4.8); MEAN CELL VOLUME 93.3 FL (80.0-100.0); MEAN CORPUSCULAR HEMOGLOBIN 31.6 PG (27.0-34.0); MEAN CORPUSCULAR HGB CONC 33.9 % (32.0-36.0); MEAN PLATELET VOLUME 7.2 FL (7.0-11.0); MONO % 14.7 % (0.0-8.0); MONOCYTE # 0.6 TH/MM3 (0-0.9); NEUT % 47.5 % (16.0-70.0); PLATELET COUNT 179 TH/MM3 (150-450); RED BLOOD COUNT 4.15 MIL/MM3 (4.50-5.90); RED CELL DISTRIBUTION WIDTH 16.2 % (11.6-17.2); WHITE BLOOD COUNT 4.2 TH/MM3 (4.0-11.0)
[2018-03-23 13:38] LABS: ALBUMIN 3.9 GM/DL (3.4-5.0); ALT (GPT) 128 U/L (12-78); AST (GOT) 185 U/L (15-37); BICARBONATE 19.8 MEQ/L (21.0-32.0); BLOOD UREA NITROGEN 4 MG/DL (7-18); CALCIUM 7.7 MG/DL (8.5-10.1); CHLORIDE 107 MEQ/L (98-107); CREATININE 0.75 MG/DL (0.60-1.30); GLOMERULAR FILTRATION RATE 108 ML/MIN (>89); GLUCOSE,RANDOM 104 MG/DL (74-106); SODIUM (NA) 138 MEQ/L (136-145)
[2018-03-23 13:42] LABS: ALKALINE PHOSPHATASE 125 U/L (45-117); TOTAL BILIRUBIN ADULT 0.4 MG/DL (0.2-1.0); TOTAL PROTEIN 7.1 GM/DL (6.4-8.2); TROPONIN I LESS THAN 0.02 NG/ML (0.02-0.05)
[2018-03-23 15:15] VITALS: BP 163/72; PULSE 75; RESP 17; O2SAT 96
[2018-03-23 17:00] VITALS: BP 142/79; PULSE 84; RESP 17; O2SAT 100
[2018-03-23 18:12] VITALS: BP 142/75
--- NOTE | 2018-03-24 23:15 | EKG ---
Date Performed: 03/23/2018 Time Performed: 13:09:54 PTAGE: 57 years EKG: Sinus rhythm DIFFUSE ST CHANGES PREVIOUS TRACING : 03/04/2018 23.36 DOCTOR: Keith Ceron Interpretating Date/Time 03/24/2018 23:03:07
== END 2018-03-23 18:15 | disposition home or self-care (01) ==
LOC: NEPC 12:54
DX: R10.13 Epigastric pain (principal); F10.129 Alcohol abuse with intoxication, unspecified; Y90.8 Blood alcohol level of 240 mg/100 ml or more; F41.9 Anxiety disorder, unspecified; I10 Essential (primary) hypertension; I25.2 Old myocardial infarction; J44.9 Chronic obstructive pulmonary disease, unspecified; F17.200 Nicotine dependence, unspecified, uncomplicated; Z87.442 Personal history of urinary calculi; Z79.899 Other long term (current) drug therapy
CPT/HCPCS: 80053; 80307; 82550; 82552; 83690; 84484; 85025; 93005; 96361; 96374; 99284; J2270; J7030

== ENCOUNTER 2018-03-24 19:46 | Emergency (ER) | payer SELFPAY ==
[~2018-03-24] VITALS: Ht 182.9 cm; Wt 80.0 kg
[2018-03-24 19:51] VITALS: BP 104/76; PULSE 78; RESP 20; TEMP 98.2; O2SAT 97
[2018-03-24] MEDS ORDERED: chlordiazePOXIDE 25 MG CAP PO ONE (20:15)
[2018-03-24] MEDS ORDERED: KETOROLAC TROMETHAMINE 30 MG/ML (IVP) VIAL IV PUSH ONE (20:15)
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
[2018-03-24 21:22] VITALS: BP 110/72; PULSE 78; RESP 16; O2SAT 98
[2018-03-24 22:47] VITALS: BP 92/66; PULSE 78; RESP 16; O2SAT 99
[2018-03-25 00:13] VITALS: BP 98/58; PULSE 74; RESP 16; O2SAT 98
[2018-03-25 02:20] VITALS: BP 94/51; PULSE 69; RESP 16; O2SAT 97
[2018-03-25 03:09] VITALS: PULSE 87; RESP 16; O2SAT 98
[2018-03-25 06:05] VITALS: BP 101/56; PULSE 78; RESP 16; O2SAT 98
--- NOTE | 2018-03-25 06:06 | PD ---
Physical Exam Date Seen by Provider: Mar 25, 2018 Time Seen by Provider: 06:04 Narrative GENERAL: Disheveled male in no acute distress no respiratory distress; GCS 15 SKIN: Warm and dry. HEAD: Atraumatic. Normocephalic. EYES: Pupils equal and round. No scleral icterus. No injection or drainage. ENT: No nasal bleeding or discharge. Mucous membranes pink and moist. NECK: Trachea midline. No JVD. CARDIOVASCULAR: Regular rate and rhythm. RESPIRATORY: No accessory muscle use. Clear to auscultation. Breath sounds equal bilaterally. GASTROINTESTINAL: Abdomen soft, non-tender, nondistended. Hepatic and splenic margins not palpable. MUSCULOSKELETAL: Extremities without clubbing, cyanosis, or edema. No obvious deformities. NEUROLOGICAL: Awake and alert. No obvious cranial nerve deficits. Motor grossly within normal limits. Five out of 5 muscle strength in the arms and legs. No tremor. Normal speech. PSYCHIATRIC: Appropriate mood and affect; insight and judgment normal. Data Data Last Documented VS Vital Signs Date Time Temp Pulse Resp B/P (MAP) Pulse Ox O2 Delivery O2 Flow Rate FiO2 03/25/18 03:09 87 16 98 Room Air 03/24/18 19:51 98.2 Orders Orders Ketorolac Inj (Toradol Inj) (03/24/18 20:15) Chlordiazepoxide (Librium) (03/24/18 20:15) Ed Discharge Order (03/25/18 05:50) [facility] Medical Record Reviewed: Yes Supervised Visit with YENI: No Differential Diagnosis Please refer to Dr. Ashley's note Narrative Course Please refer to Dr. Ashley's note At 6 AM patient is ambulatory without antalgic gait no tremor patient feels well is stable for outpatient management encouraged to follow-up with [facility] for voluntary detox He is to return the emergency department for any concerns as needed Diagnosis Primary Impression: Alcohol intoxication Qualified Codes: F10.920 - Alcohol use, unspecified with intoxication, uncomplicated Additional Impression: Chronic back pain Qualified Codes: M54.6 - Pain in thoracic spine; G89.29 - Other chronic pain Patient Instructions: General Instructions, Alcohol Intoxication (ED) Departure Forms: Tests/Procedures Additional Instruction: Follow up with Manuel Coe in regards to psychiatric or substance related issues at: [address] [place], [place] [id number] Disposition: 01 DISCHARGE HOME Condition: Stable Abbie Ceja MD Mar 25, 2018 06:06
== END 2018-03-25 06:07 | disposition home or self-care (01) ==
LOC: PHED 19:46
DX: F10.129 Alcohol abuse with intoxication, unspecified (principal); G89.29 Other chronic pain; M54.6 Pain in thoracic spine; D64.9 Anemia, unspecified; I10 Essential (primary) hypertension; Z72.0 Tobacco use
CPT/HCPCS: 96374; 99284; J1885

== ENCOUNTER 2018-03-28 10:08 | Emergency (ER) | payer OTHER ==
[2018-03-28] MEDS ORDERED: LORazepam 2 MG TAB PO PRN (10:30)
[2018-03-28] MEDS ORDERED: FLUMAZENIL 0.5 MG/5 ML VIAL IV PUSH PRN (10:30)
[2018-03-28] MEDS ORDERED: LORazepam 1 MG TAB PO PRN (10:30)
[2018-03-28] MEDS ORDERED: ACETAMINOPHEN 325 MG TAB PO ONE (10:30)
[2018-03-28] MEDS ORDERED: PANTOPRAZOLE SOD 40 MG DELAYED RELEASE TAB PO ONE (10:30)
[2018-03-28] MEDS ORDERED: LORazepam 2 MG/ML VIAL IV PUSH PRN ×4 (10:30)
--- NOTE | 2018-03-28 10:35 | PD ---
HPI Chief Complaint: Psychiatric Symptoms Time Seen by Provider: 10:28 Travel History International Travel<30 days: No Contact w/Intl Traveler<30days: No History of Present Illness HPI 57-year-old male brought in under the Jimenes act with EtOH intoxication , and suicidal ideation with a plan to either hang himself on the bridge, or stab himself in the chest with a knife. Patient states he cannot stand continuing to drink but he is unable to quit on his own. He states his desire to go to [facility] for detox. He complains of generalized pain everywhere. He has no other acute medical complaints. Patient is intoxicated. He has no known drug allergies. PFSH Past Medical History Hx Anticoagulant Therapy: No Anemia: Yes Autoimmune Disease: No Anxiety: Yes Depression: No Cancer: No Cardiovascular Problems: No Chemotherapy: No Cerebrovascular Accident: No Diabetes: No Diminished Hearing: No Endocrine: No Gastrointestinal Disorders: Yes (GI BLEED) Genitourinary: No Hiatal Hernia: Yes Hypertension: Yes Immune Disorder: No Implanted Vascular Access Dvce: No Kidney Stones: Yes Musculoskeletal: No Neurologic: Yes Psychiatric: No Reproductive: No Respiratory: Yes (COPD) Immunizations Current: Yes Myocardial Infarction: Yes Seizures: Yes (ALCOHOL RELATED) Thyroid Disease: No Ulcer: Yes Past Surgical History Abdominal Surgery: Yes (Hernia repair) Hysterectomy: No Other Surgery: Yes (HIATAL HERNIA 1979) Social History Alcohol Use: Yes (DAILY) Tobacco Use: Yes Substance Use: No Allergies-Medications (Allergen,Severity, Reaction): Coded Allergies: No Known Allergies (Verified Adverse Reaction, Unknown, 03/28/18) Reported Meds & Prescriptions Reported Meds & Active Scripts Active No Active Prescriptions or Reported Medications Review of Systems ROS Limitations: Intoxication Except as stated in HPI: all other systems reviewed are Neg General / Constitutional: No: Fever Eyes: No: Visual changes HENT: No: Headaches Cardiovascular: No: Chest Pain or Discomfort Respiratory: No: Shortness of Breath Gastrointestinal: No: Abdominal Pain Genitourinary: No: Dysuria Musculoskeletal: Positive: Myalgias, Arthralgias, Pain Skin: No Rash Neurologic: No: Weakness Psychiatric: No: Depression Endocrine: No: Polydipsia Hematologic/Lymphatic: No: Easy Bruising Physical Exam Narrative GENERAL: Patient is intoxicated and appears in no acute distress SKIN: Warm and dry. Normal color. Normal turgor. No signs of trauma. HEAD: Atraumatic. Normocephalic. EYES: Pupils equal and round. No scleral icterus. No injection or drainage. ENT: No nasal bleeding or discharge. Mucous membranes pink and moist. Pharynx is clear. Airways patent NECK: Trachea midline. Supple and nontender. CARDIOVASCULAR: Regular rate and rhythm. RESPIRATORY: No accessory muscle use. Clear to auscultation. Breath sounds equal bilaterally. GASTROINTESTINAL: Abdomen soft, non-tender, nondistended. Hepatic and splenic margins not palpable. MUSCULOSKELETAL: Extremities without clubbing, cyanosis, or edema. No obvious deformities. NEUROLOGICAL: Awake and alert. No obvious cranial nerve deficits. Motor grossly within normal limits. Five out of 5 muscle strength in the arms and legs. Normal speech. Data Data Orders Orders Complete Blood Count With Diff (03/28/18 10:28) Comprehensive Metabolic Panel (03/28/18 10:28) Thyroid Stimulating Hormone (03/28/18 10:28) Psych Screen (03/28/18 10:28) Drug Screen, Random Urine (03/28/18 10:28) Alcohol (Ethanol) (03/28/18 10:28) Pantoprazole (Protonix) (03/28/18 10:30) Acetaminophen (Tylenol) (03/28/18 10:30) Alcohol Withdrawal Asmt-Ciwa [id number] (03/28/18 10:28) Flumazenil Inj (Romazicon Inj) (03/28/18 10:30) Lorazepam (Ativan) (03/28/18 10:30) Lorazepam Inj (Ativan Inj) (03/28/18 10:30) Lorazepam (Ativan) (03/28/18 10:30) Lorazepam Inj (Ativan Inj) (03/28/18 10:30) Lorazepam Inj (Ativan Inj) (03/28/18 10:30) Lorazepam Inj (Ativan Inj) (03/28/18 10:30) MDM Medical Decision Making Medical Screen Exam Complete: Yes Emergency Medical Condition: Yes Medical Record Reviewed: Yes Differential Diagnosis Jimenes act. Suicidal ideation. Alcohol dependence. Narrative Course Patient is medically stable at time of exam. Psychiatric labs ordered per protocol. Patient is given 40 mg pantoprazole p.o., as well as 650 mg acetaminophen p.o. Patient is placed on CIWA protocol. Psych screen is ordered. Patient is medically cleared for psychiatric evaluation. Scripts No Active Prescriptions or Reported Meds Condition: Prasad Malloy Mar 28, 2018 10:35
[2018-03-28 11:20] LABS: AUTOMATED NEUTROPHIL # 3.6 TH/MM3 (1.8-7.7); BASOPHIL # 0.1 TH/MM3 (0-0.2); BASOPHIL % 1.4 % (0.0-2.0); EOSINOPHIL # 0.2 TH/MM3 (0-0.4); EOSINOPHIL % 2.6 % (0.0-4.0); HEMATOCRIT 40.5 % (39.0-51.0); HEMOGLOBIN 13.6 GM/DL (13.0-17.0); LYMPH % 26.5 % (9.0-44.0); LYMPHOCYTE # 1.7 TH/MM3 (1.0-4.8); MEAN CELL VOLUME 93.6 FL (80.0-100.0); MEAN CORPUSCULAR HEMOGLOBIN 31.5 PG (27.0-34.0); MEAN CORPUSCULAR HGB CONC 33.7 % (32.0-36.0); MEAN PLATELET VOLUME 7.7 FL (7.0-11.0); MONO % 11.9 % (0.0-8.0); MONOCYTE # 0.7 TH/MM3 (0-0.9); NEUT % 57.6 % (16.0-70.0); PLATELET COUNT 191 TH/MM3 (150-450); RED BLOOD COUNT 4.33 MIL/MM3 (4.50-5.90); RED CELL DISTRIBUTION WIDTH 16.2 % (11.6-17.2); WHITE BLOOD COUNT 6.3 TH/MM3 (4.0-11.0)
[2018-03-28 11:40] LABS: ALBUMIN 3.9 GM/DL (3.4-5.0); AST (GOT) 278 U/L (15-37); BICARBONATE 21.7 MEQ/L (21.0-32.0); BLOOD UREA NITROGEN 5 MG/DL (7-18); CALCIUM 8.2 MG/DL (8.5-10.1); CHLORIDE 106 MEQ/L (98-107); CREATININE 0.78 MG/DL (0.60-1.30); GLOMERULAR FILTRATION RATE 103 ML/MIN (>89); GLUCOSE,RANDOM 86 MG/DL (74-106); SODIUM (NA) 138 MEQ/L (136-145)
[2018-03-28 11:51] LABS: ALKALINE PHOSPHATASE 133 U/L (45-117); ALT (GPT) 169 U/L (12-78); TOTAL BILIRUBIN ADULT 0.4 MG/DL (0.2-1.0); TOTAL PROTEIN 7.6 GM/DL (6.4-8.2)
[2018-03-28 14:28] VITALS: BP 125/56; PULSE 89; RESP 16; O2SAT 95
[2018-03-28 16:00] VITALS: BP 101/62; PULSE 78; RESP 16; O2SAT 98
[2018-03-28 18:00] VITALS: BP 107/70; PULSE 86; RESP 18; O2SAT 100
[2018-03-28] MEDS ORDERED: chlordiazePOXIDE 25 MG CAP PO ONE (19:00)
[2018-03-28 19:13] VITALS: BP 131/60; PULSE 85; RESP 20; O2SAT 98
[2018-03-28 21:55] VITALS: BP 120/83; PULSE 90; RESP 16; O2SAT 98
--- NOTE | 2018-03-29 01:19 | PD ---
Data Data Last Documented VS Vital Signs Date Time Temp Pulse Resp B/P (MAP) Pulse Ox O2 Delivery O2 Flow Rate FiO2 03/28/18 21:55 90 16 120/83 (95) 98 03/28/18 19:13 Room Air Orders Orders Complete Blood Count With Diff (03/28/18 10:28) Comprehensive Metabolic Panel (03/28/18 10:28) Thyroid Stimulating Hormone (03/28/18 10:28) Psych Screen (03/28/18 10:28) Drug Screen, Random Urine (03/28/18 10:28) Alcohol (Ethanol) (03/28/18 10:28) Pantoprazole (Protonix) (03/28/18 10:30) Acetaminophen (Tylenol) (03/28/18 10:30) Alcohol Withdrawal Asmt-Ciwa Q4HX18 (03/28/18 10:28) Flumazenil Inj (Romazicon Inj) (03/28/18 10:30) Lorazepam (Ativan) (03/28/18 10:30) Lorazepam Inj (Ativan Inj) (03/28/18 10:30) Lorazepam (Ativan) (03/28/18 10:30) Lorazepam Inj (Ativan Inj) (03/28/18 10:30) Lorazepam Inj (Ativan Inj) (03/28/18 10:30) Lorazepam Inj (Ativan Inj) (03/28/18 10:30) Diet Regular Basic (03/28/18 Lunch) Chlordiazepoxide (Librium) (03/28/18 19:00) Diet Regular Basic (03/28/18 Dinner) Labs Laboratory Tests Test 03/28/18 10:35 03/28/18 16:55 White Blood Count 6.3 TH/MM3 Red Blood Count 4.33 MIL/MM3 Hemoglobin 13.6 GM/DL Hematocrit 40.5 % Mean Corpuscular Volume 93.6 FL Mean Corpuscular Hemoglobin 31.5 PG Mean Corpuscular Hemoglobin Concent 33.7 % Red Cell Distribution Width 16.2 % Platelet Count 191 TH/MM3 Mean Platelet Volume 7.7 FL Neutrophils (%) (Auto) 57.6 % Lymphocytes (%) (Auto) 26.5 % Monocytes (%) (Auto) 11.9 % Eosinophils (%) (Auto) 2.6 % Basophils (%) (Auto) 1.4 % Neutrophils # (Auto) 3.6 TH/MM3 Lymphocytes # (Auto) 1.7 TH/MM3 Monocytes # (Auto) 0.7 TH/MM3 Eosinophils # (Auto) 0.2 TH/MM3 Basophils # (Auto) 0.1 TH/MM3 CBC Comment DIFF FINAL Differential Comment Blood Urea Nitrogen 5 MG/DL Creatinine 0.78 MG/DL Random Glucose 86 MG/DL Total Protein 7.6 GM/DL Albumin 3.9 GM/DL Calcium Level 8.2 MG/DL Alkaline Phosphatase 133 U/L Aspartate Amino Transf (AST/SGOT) 278 U/L Alanine Aminotransferase (ALT/SGPT) 169 U/L Total Bilirubin 0.4 MG/DL Sodium Level 138 MEQ/L Potassium Level 3.7 MEQ/L Chloride Level 106 MEQ/L Carbon Dioxide Level 21.7 MEQ/L Anion Gap 10 MEQ/L Estimat Glomerular Filtration Rate 103 ML/MIN Thyroid Stimulating Hormone 3rd Gen 0.967 uIU/ML Ethyl Alcohol Level 448 MG/DL Urine Opiates Screen NEG Urine Barbiturates Screen NEG Urine Amphetamines Screen NEG Urine Benzodiazepines Screen POS Urine Cocaine Screen NEG Urine Cannabinoids Screen NEG MDM Supervised Visit with YENI: Yes Narrative Course The history, exam, and medical decision-making in the associated midlevel provider note were completed with my assistance. I reviewed and agree with the findings presented. I attest that I had a [id number] encounter with the patient on the same day, and personally performed and documented my assessment and findings in the medical record. *My assessment and Findings: This is a 57-year-old male who presents to the emergency department intoxicated requesting detox. He expressed some suicidal ideation to the prior provider. On my conversation with him he says he is frustrated with his drinking and he wants to go into detox. Patient is well- known to our emergency department. He is an inherent risk for suicide given his homelessness and substance dependence, but I don't think he would benefit from psychiatric admission, he would benefit more from substance treatment. I do not think he needs Jimenes act criteria as his presentation is alcohol related and I think he would most benefit from outpatient detox at [facility]. Patient is amenable to being observed in the emergency department over it and following up with Ankit Coe in the morning. Diagnosis Primary Impression: Alcohol intoxication Qualified Codes: F10.920 - Alcohol use, unspecified with intoxication, uncomplicated Patient Instructions: General Instructions Additional Instruction: If you develop thoughts of hurting herself or others return to the emergency room. Follow up with Manuel Coe in regards to psychiatric or substance related issues at: [address] [place], [place] [id number] Med/Other Pt SpecificInfo: No Change to Meds Scripts No Active Prescriptions or Reported Meds Disposition: 01 DISCHARGE HOME Condition: Yumiko Velasquez MD Mar 29, 2018 01:19
== END 2018-03-29 06:25 | disposition home or self-care (01) ==
LOC: NEPD 10:08 → NEDAMB 03-29 06:25
DX: F10.129 Alcohol abuse with intoxication, unspecified (principal); R52 Pain, unspecified; Y90.8 Blood alcohol level of 240 mg/100 ml or more
CPT/HCPCS: 80053; 80307; 84443; 85025; 96374; 99284; J2060

== ENCOUNTER 2018-03-30 12:17 | Observation (INO) | payer SELFPAY ==
[2018-03-30] VITALS (12 sets, daily range): BP systolic 98–146; BP diastolic 62–94; PULSE 72–89; RESP 16–25; TEMP 97.4–99.1; O2SAT 92–100
[~2018-03-30] VITALS: Ht 182.9 cm; Wt 80.2 kg
[2018-03-30] MEDS ORDERED: SODIUM CHLORIDE 0.9% FLUSH 10 ML FLUSH IVF PRN (12:30)
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
[2018-03-30 12:47] LABS: AUTOMATED NEUTROPHIL # 2.7 TH/MM3 (1.8-7.7); BASOPHIL # 0.1 TH/MM3 (0-0.2); BASOPHIL % 1.1 % (0.0-2.0); EOSINOPHIL # 0.1 TH/MM3 (0-0.4); EOSINOPHIL % 2.5 % (0.0-4.0); HEMATOCRIT 35.8 % (39.0-51.0); HEMOGLOBIN 12.4 GM/DL (13.0-17.0); LYMPH % 29.2 % (9.0-44.0); LYMPHOCYTE # 1.6 TH/MM3 (1.0-4.8); MEAN CORPUSCULAR HEMOGLOBIN 31.8 PG (27.0-34.0); MEAN CORPUSCULAR HGB CONC 34.5 % (32.0-36.0); MONO % 16.8 % (0.0-8.0); MONOCYTE # 0.9 TH/MM3 (0-0.9); NEUT % 50.4 % (16.0-70.0); PLATELET COUNT 196 TH/MM3 (150-450); RED BLOOD COUNT 3.89 MIL/MM3 (4.50-5.90); RED CELL DISTRIBUTION WIDTH 15.6 % (11.6-17.2); WHITE BLOOD COUNT 5.4 TH/MM3 (4.0-11.0)
--- NOTE | 2018-03-30 12:47 | RADRPT ---
EXAM DATE: 03/30/2018 12:45 PM EDT AGE/SEX: 57 years / Male INDICATIONS: Chest and back pain for 1 month CLINICAL DATA: This is the patient's initial encounter. Patient reports that signs and symptoms have been present for 1 month and indicates a pain score of 10/10. MEDICAL/SURGICAL HISTORY: None. None. COMPARISON: [facility], CHEST SINGLE AP, 02/15/2018. . FINDINGS: A single AP view of the chest demonstrates the lungs to be symmetrically aerated without evidence of mass, infiltrate or effusion. The cardiomediastinal contours are unremarkable. Osseous structures a re intact. CONCLUSION: No acute cardiopulmonary disease Electronically signed by: Gabriel Murphy MD 03/30/2018 12:46 PM EDT
[2018-03-30 12:53] LABS: CHLORIDE 105 MEQ/L (98-107); SODIUM (NA) 139 MEQ/L (136-145)
[2018-03-30 12:57] LABS: ALBUMIN 3.5 GM/DL (3.4-5.0); BICARBONATE 24.7 MEQ/L (21.0-32.0); BLOOD UREA NITROGEN 6 MG/DL (7-18); GLUCOSE,RANDOM 105 MG/DL (74-106); MAGNESIUM 1.9 MG/DL (1.5-2.5)
--- NOTE | 2018-03-30 12:59 | RADRPT ---
EXAM DATE: 03/30/2018 12:56 PM EDT AGE/SEX: 57 years / Male INDICATIONS: Frequent falls. Dizziness. CLINICAL DATA: This is the patient's initial encounter. Patient reports that signs and symptoms have been present for 1 week and indicates a pain score of 5/10. MEDICAL/SURGICAL HISTORY: Hypertension. Chronic obstructive pulmonary disease. . Hiatal hernia rep air. Orthopedic surgery. RADIATION DOSE: 57.27 CTDI (mGy) COMPARISON: No prior exams available for comparison. TECHNIQUE: CT of the head without contrast. Using automated exposure control and adjustment of the mA and/or kV according to patient size, radiation dose was kept as low as reasonably achievable to ob tain optimal diagnostic quality images. DICOM format image data is available electronically for revi ew and comparison. FINDINGS: Cerebrum: The ventricles are normal for age. No evidence of midline shift, mass lesion, hemorrhage or acute infarction. No extraaxial fluid collections are seen. Posterior Fossa: The cerebellum and brainstem are intact. The 4th ventricle is midline. The cerebe llopontine angle is unremarkable. Extracranial: The visualized portion of the orbits is intact. Skull: The calvaria is intact. No evidence of skull fracture. CONCLUSION: 1. No acute intracranial abnormality Electronically signed by: Gabriel Murphy MD 03/30/2018 12:57 PM EDT
[2018-03-30 13:00] LABS: ALT (GPT) 138 U/L (12-78); AST (GOT) 204 U/L (15-37); CREATININE 0.71 MG/DL (0.60-1.30); GLOMERULAR FILTRATION RATE 115 ML/MIN (>89)
[2018-03-30 13:01] LABS: TOTAL BILIRUBIN ADULT 0.4 MG/DL (0.2-1.0); TOTAL PROTEIN 7.2 GM/DL (6.4-8.2)
[2018-03-30 13:03] LABS: ALKALINE PHOSPHATASE 129 U/L (45-117)
[2018-03-30 13:05] LABS: TROPONIN I LESS THAN 0.02 NG/ML (0.02-0.05)
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
[2018-03-30] MEDS ORDERED: LORazepam 2 MG/ML VIAL IV PUSH ONE (13:15)
[2018-03-30] MEDS ORDERED: SODIUM CHLOR 0.9% 1000 ML INJ 1,000 ML IV ONE (13:15)
[2018-03-30] MEDS ORDERED: ASPIRIN 325 MG TAB PO ONE (13:15)
[2018-03-30 13:25] LABS: BILIRUBIN, URINE NEG (NEG); BLOOD, URINE TRACE (NEG); GLUCOSE,URINE NEG (NEG); KETONE, URINE NEG (NEG); NITRITE,URINE NEG (NEG); URINE COLOR YELLOW (YELLW/STRAW); URINE LEUKOCYTE ESTERASE NEG (NEG)
[2018-03-30] MEDS: SODIUM CHLOR 0.9% 1000 ML INJ 1,000 ML IV SCH ×2 (13:33→20:13)
[2018-03-30 13:34] LABS: SQUAMOUS EPITHELIAL CELL URINE 0-5 /hpf (0-5)
[2018-03-30] MEDS ORDERED: SODIUM CHLORIDE 0.9% FLUSH 10 ML FLUSH IV FLUSH PRN (13:45)
[2018-03-30] MEDS ORDERED: BISACODYL 10 MG SUPP RECTAL PRN (13:45)
[2018-03-30] MEDS ORDERED: LACTULOSE SYRUP 20 GM/30 ML CUP PO PRN (13:45)
[2018-03-30] MEDS ORDERED: LORazepam 2 MG/ML VIAL IV PUSH PRN ×3 (13:45)
[2018-03-30] MEDS ORDERED: MAGNESIUM HYDROXIDE SUSP 30 ML CUP PO PRN (13:45)
[2018-03-30] MEDS ORDERED: FLUMAZENIL 0.5 MG/5 ML VIAL IV PUSH PRN (13:45)
[2018-03-30] MEDS ORDERED: SENNOSIDES 8.6 MG TAB PO PRN (13:45)
[2018-03-30] MEDS ORDERED: LORazepam 1 MG TAB PO PRN (13:45)
[2018-03-30] MEDS ORDERED: NALOXONE HCL 0.4 MG/ML AMP IV PUSH PRN (13:45)
[2018-03-30] MEDS ORDERED: LORazepam 2 MG TAB PO PRN (13:45)
[2018-03-30] MEDS ORDERED: FOLIC ACID 1 MG TAB PO ONE (14:00)
[2018-03-30] MEDS ORDERED: THIAMINE INJ 100 MG in SODIUM CHLORIDE 0.9% INJ 100 ML IV ONE (15:00)
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
[2018-03-30] MEDS: CALCITONIN SALM 200 UNIT/SPRAY 3.7 ML BTLN NASAL SCH (16:52)
[2018-03-30] MEDS: SODIUM CHLORIDE 0.9% FLUSH 10 ML FLUSH IV FLUSH SCH (21:00)
[2018-03-30] MEDS: LORazepam 2 MG/ML VIAL IV PUSH PRN (23:21)
[2018-03-31] VITALS (8 sets, daily range): BP systolic 113–163; BP diastolic 73–99; PULSE 66–84; RESP 12–28; TEMP 97.8–99.3; O2SAT 95–98
[2018-03-31] MEDS: SODIUM CHLOR 0.9% 1000 ML INJ 1,000 ML IV SCH (02:53)
[2018-03-31] MEDS: LORazepam 2 MG/ML VIAL IV PUSH PRN (04:40)
[2018-03-31 04:50] LABS: AUTOMATED NEUTROPHIL # 2.1 TH/MM3 (1.8-7.7); BASOPHIL # 0.1 TH/MM3 (0-0.2); BASOPHIL % 1.3 % (0.0-2.0); EOSINOPHIL # 0.2 TH/MM3 (0-0.4); HEMATOCRIT 33.5 % (39.0-51.0); HEMOGLOBIN 11.6 GM/DL (13.0-17.0); LYMPH % 26.9 % (9.0-44.0); LYMPHOCYTE # 1.1 TH/MM3 (1.0-4.8); MEAN CELL VOLUME 92.4 FL (80.0-100.0); MEAN CORPUSCULAR HGB CONC 34.7 % (32.0-36.0); MONO % 13.5 % (0.0-8.0); MONOCYTE # 0.5 TH/MM3 (0-0.9); NEUT % 54.3 % (16.0-70.0); PLATELET COUNT 169 TH/MM3 (150-450); RED BLOOD COUNT 3.63 MIL/MM3 (4.50-5.90); RED CELL DISTRIBUTION WIDTH 15.7 % (11.6-17.2)
[2018-03-31 04:54] LABS: CHLORIDE 106 MEQ/L (98-107); SODIUM (NA) 140 MEQ/L (136-145)
[2018-03-31 04:58] LABS: CALCIUM 8.1 MG/DL (8.5-10.1)
[2018-03-31 04:59] LABS: BICARBONATE 28.3 MEQ/L (21.0-32.0); BLOOD UREA NITROGEN 9 MG/DL (7-18); GLUCOSE,RANDOM 87 MG/DL (74-106)
[2018-03-31 05:02] LABS: ALT (GPT) 132 U/L (12-78); AST (GOT) 211 U/L (15-37); CREATININE 0.71 MG/DL (0.60-1.30); GLOMERULAR FILTRATION RATE 115 ML/MIN (>89)
[2018-03-31 05:03] LABS: TOTAL BILIRUBIN ADULT 0.7 MG/DL (0.2-1.0); TOTAL PROTEIN 6.3 GM/DL (6.4-8.2)
[2018-03-31 05:05] LABS: ALKALINE PHOSPHATASE 122 U/L (45-117)
--- NOTE | 2018-03-31 08:26 | HHI.PR ---
Subjective Remarks Patient seen and examined today for follow-up on alcohol intoxication, chest pain. Patient appears to be doing well this morning does not indicate any recurrent chest pain. Patient is rather hung over. He requested that we speak softer because it sounds like I am talking through a Juan [employer] phone. Patient without any signs of withdrawals at this time. Patient does not have any agitation, no extremity tremors, no nystagmus, blood pressure is stable. Patient remains afebrile. Patient continues to complain about his chronic back pain. Nursing staff notified me that patient indicating he is going through withdrawal. She did a CIWA assessment, which she states that it was obvious that he was trying to worsen his symptoms and his see was score was 10. I went back up and evaluated the patient, when entering the room patient is relaxed, resting comfortably in bed. No signs of any tremors, no nystagmus. He states that he was going through withdrawal and he put his arms up in the air and started shaking them. Objective Vitals Vital Signs Date Time Temp Pulse Resp B/P (MAP) Pulse Ox O2 Delivery O2 Flow Rate FiO2 03/31/18 06:26 98.1 70 15 113/99 (104) 03/31/18 05:00 66 17 121/85 (97) 03/31/18 03:01 80 28 137/73 (94) 98 03/31/18 01:00 80 14 116/75 (89) 03/30/18 23:22 97.8 80 18 127/80 (96) 97 03/30/18 18:21 86 16 98/62 (74) 03/30/18 18:00 88 17 03/30/18 17:01 80 24 103/68 (80) 03/30/18 15:34 74 03/30/18 14:40 97.4 77 25 138/67 (90) 97 03/30/18 14:35 03/30/18 14:18 72 18 133/71 (91) 100 Nasal Cannula 2.00 03/30/18 14:01 72 16 104/69 (81) 97 Nasal Cannula 2.00 03/30/18 13:35 77 18 100/69 (79) 98 Nasal Cannula 2.00 03/30/18 13:33 97 Nasal Cannula 2.00 03/30/18 13:15 89 20 98/63 (75) 92 Nasal Cannula 2.00 03/30/18 12:45 98 Nasal Cannula 2.00 03/30/18 12:36 99.1 88 18 146/94 (111) 97 I/O 03/30/18 03/30/18 03/30/18 03/31/18 03/31/18 03/31/18 07:00 15:00 23:00 07:00 15:00 23:00 Intake Total 1000 ml Output Total 400 ml Balance 600 ml Intake IV Total 1000 ml Output Urine Total 400 ml Result Diagram: 03/31/18 0425 03/31/18 0425 Imaging Last Impressions Abdomen/Pelvis CT 03/30/18 1249 Signed Impressions: CONCLUSION: 1. Severe hepatic steatosis. 2. No abdominal visceral injury 3. Compression fracture at L1 of indeterminate age but likely old. Head CT 03/30/18 1236 Signed Impressions: CONCLUSION: 1. No acute intracranial abnormality Chest X-Ray 03/30/18 1227 Signed Impressions: CONCLUSION: No acute cardiopulmonary disease Objective Remarks GENERAL: Well-developed, well-nourished, in no acute distress. alert and orientated HEENT: Head is normocephalic without any lesions or masses noted. Facial features are symmetric. Eyes: Extraocular muscles are intact. Conjunctivae were clear. No nystagmus NECK: Supple without any masses. Trachea midline no deviation. No JVD, CARDIAC: Regular rhythm, regular rate. S1/S2 are heard. No murmurs gallops or rubs. LUNGS: Clear to auscultation bilaterally. No wheeze, rhonchi or rales. No use of accessory muscles on inspiration or expiration. ABDOMEN: Soft, nontender. Nondistended. Bowel sounds heard in all 4 quadrants. No organomegaly or masses. Negative rebound, negative guarding EXTREMITIES: No edema, pulses are equal bilaterally. No cyanosis or clubbing, no extremity tremors NEUROLOGY: Mood and affect appear appropriate. Cranial nerves II through XII grossly intact. Moving all extremities, speech is clear Urinary Catheter: No Vascular Central Line Catheter: No A/P Assessment and Plan Chest pain, atypical -Patient with increased risk factors include age, hypertension -Patient has been ruled out for acute coronary event with serial cardiac enzymes that are negative, serial EKG shows sinus rhythm without any changes. -Patient has had a myocardial perfusion study done on April 03, 2017. At that time it showed no significant reversible perfusion defect. No focal wall abnormality. Ejection fraction 63%, low risk -Continue aspirin -Nitroglycerin as needed -Continue telemetry Acute alcohol intoxication -No signs of withdrawal symptoms at this time -Blood alcohol level was 336 on admission -Continue CIWA protocol -Continue thiamine/folic acid -Patient counseled on cessation, -manager estate consulted to supply the patient with [employer] Chronic CPK elevation -Review of medical records indicate the patient has chronic elevation anywhere from [phone] -Continue monitor CPK. -Further studies to evaluate for elevated CPK were performed, sed rate is unremarkable. -Immunological studies are pending Liver enzyme elevation, mild improvement -Patient does have worsening as compared to previous elevations -No bilirubin elevation -CT scan does show hepatic steatosis Chronic back pain -CT of the abdomen does indicate L1 compression fracture which dates back to at least 12/09/17. Lumbar spine x-ray on 01/29/17 did not indicate any acute abnormality -What appears if patient does have a compression fracture which is new from at least 12/09/17. -Physical examination does not indicate any acute abnormalities -MRI of the lumbar spine was performed which did indicate L1 compression fracture without any neurological abnormality. Patient does have degenerative arthritic changes which is causing a moderate spinal cord stenosis and L3-L4 and L4-L5. -Discussed case with neurosurgery who indicated that there is no surgical treatment needed at this time. Patient would benefit from outpatient evaluation and recommendations. -Continue Miacalcin nasal spray DVT prevention -Sequential compression devices Discharge Planning Discharge home in stable condition Activity: Ad elmo. Diet: Healthy heart diet Medication per medication reconciliation Follow-up with primary medical doctor in 1 week Daniel Castillo Mar 31, 2018 08:26
[2018-03-31] MEDS ORDERED: FOLIC ACID 1 MG TAB PO SCH (09:00)
[2018-03-31] MEDS: SODIUM CHLORIDE 0.9% FLUSH 10 ML FLUSH IV FLUSH SCH (11:46)
[2018-03-31] MEDS: CALCITONIN SALM 200 UNIT/SPRAY 3.7 ML BTLN NASAL SCH (11:46)
--- NOTE | 2018-03-31 14:30 | RADRPT ---
EXAM DATE: 03/31/2018 2:14 PM EDT AGE/SEX: 57 years / Male INDICATIONS: Trauma. L1 fracture. CLINICAL DATA: This is the patient's initial encounter. Patient reports that signs and symptoms have been present for 3 days and indicates a pain score of 5/10. MEDICAL/SURGICAL HISTORY: Hypertension. Gastrointestinal bleed. Inguinal hernia repair. COMPARISON: No prior exams available for comparison. TECHNIQUE: Multiplanar, multisequence MRI of the lumbar spine was performed without contrast. Patie nt was scanned in a sitting position; neutral, flexion, and extension scans were performed in the sa gittal plane. FINDINGS: Vertebra: Acute compression L1. With compromise of vertebral body height less than 50% with no canal compromise. Schmorl's type endplate changes L3-4 Conus: Normal level and configuration. T12-L1: Again seen is a compression of L1 compromising height by approximately 50%. There is mild int erspace ridging at T12-L1 without significant canal compromise. There is no significant canal canal c ompromise at L1-2. L2-3: There is mild uncinate ridging present causing some flattening the anterior thecal space with m ild degenerative changes in the facets. L3-4: Discogenic changes are seen at L3-4 generalized disc bulging evident eccentric to the right wit h moderate spinal stenosis from degenerative changes. L4-5: Moderate interspace ridging is present generalized disc bulging and moderate degenerative almonte es in the facets. Moderate spinal stenosis L4-5. L5-S1: Mild central disc bulging is present with moderate facet degenerative changes. Retroperitoneum is intact. CONCLUSION: Anterior wedging L1 acute without canal compromise. Spiral type endplate depressions L3-4 acute as well Moderate degenerative changes lumbar spine with moderate lumbar spinal stenosis L3-4 and L4-5. Electronically signed by: Berny Viera MD 03/31/2018 2:28 PM EDT
--- NOTE | 2018-03-31 14:53 | HHI.DCPOC ---
Discharge Care Plan Diagnosis: (1) Intractable back pain (2) Chest pain (3) Alcohol intoxication Goals to Promote Your Health * To prevent worsening of your condition and complications * To maintain your health at the optimal level Directions to Meet Your Goals Take your medications as prescribed Follow your dietary instruction Follow activity as directed Keep your appointments as scheduled Take your immunizations and boosters as scheduled If your symptoms worsen call your PCP, if no PCP go to Urgent Care Center or Emergency Room Smoking is Dangerous to Your Health. Avoid second hand smoke Call the 24-hour hour crisis hotline for domestic abuse at Daniel Castillo Mar 31, 2018 14:53
[2018-03-31] MEDS ORDERED: THIAMINE INJ 100 MG in SODIUM CHLORIDE 0.9% INJ 100 ML IV SCH (15:00)
--- NOTE | 2018-03-31 23:32 | EKG ---
Date Performed: 03/30/2018 Time Performed: 13:16:41 PTAGE: 57 years EKG: Sinus rhythm NORMAL ECG Since the PREVIOUS TRACING , no significant change noted DOCTOR: Cristobal Francis Interpretating Date/Time 03/31/2018 23:31:36
--- NOTE | 2018-03-31 23:34 | EKG ---
Date Performed: 03/30/2018 Time Performed: 12:22:36 PTAGE: 57 years EKG: ECTOPIC ATRIAL RHYTHM POSSIBLE RIGHT VENTRICULAR CONDUCTION DELAY LATERAL MYOCARDIAL INFARC TION MODERATE T-WAVE ABNORMALITY, CONSIDER INFERIOR ISCHEMIA ABNORMAL ECG INTERPRETATION BASED ON A D EFAULT AGE OF 40 YEARS NO PREVIOUS TRACING Compared to previous tracing, ST/T wave changes are less prominent DOCTOR: Cristobal Francis Interpretating Date/Time 03/31/2018 23:33:47
== END 2018-03-31 15:20 | disposition home or self-care (01) ==
LOC: PHED 12:17 → PHEDA 13:34 → PHICU 14:25
PROVIDERS: ADMIT Hospitalist; ATTEND Hospitalist
DX: R07.9 Chest pain, unspecified (principal); J44.9 Chronic obstructive pulmonary disease, unspecified; R19.7 Diarrhea, unspecified; R10.9 Unspecified abdominal pain; R50.9 Fever, unspecified; R11.2 Nausea with vomiting, unspecified; M54.5 Low back pain; R56.9 Unspecified convulsions; F10.231 Alcohol dependence with withdrawal delirium; D64.9 Anemia, unspecified; F41.9 Anxiety disorder, unspecified; K92.2 Gastrointestinal hemorrhage, unspecified; K44.9 Diaphragmatic hernia without obstruction or gangrene; I10 Essential (primary) hypertension; Z87.442 Personal history of urinary calculi; I25.2 Old myocardial infarction; F17.200 Nicotine dependence, unspecified, uncomplicated; Y90.8 Blood alcohol level of 240 mg/100 ml or more; F10.229 Alcohol dependence with intoxication, unspecified; S32.018A Other fracture of first lumbar vertebra, initial encounter for closed fracture; M54.30 Sciatica, unspecified side; K76.0 Fatty (change of) liver, not elsewhere classified; G89.29 Other chronic pain; M48.061 Spinal stenosis, lumbar region without neurogenic claudication; R94.31 Abnormal electrocardiogram [ECG] [EKG]
CPT/HCPCS: 70450; 71045; 72148; 74176; 80053; 80307; 81001; 82550; 82552; 83615; 83690; 83735; 83880; 84484; 85025; 85610; 85652; 85730; 86038; 86255; 93005; 96361; 96365; 96375; 96376; 99285; G0378; J2060; J3411; J7030

== ENCOUNTER 2018-04-01 15:12 | Emergency (ER) | payer SELFPAY ==
[~2018-04-01] VITALS: Ht 188 cm; Wt 80.0 kg
[2018-04-01 15:25] VITALS: BP 94/68; PULSE 103; RESP 17; TEMP 98.7; O2SAT 98
[2018-04-01] MEDS ORDERED: SODIUM CHLOR 0.9% 1000 ML INJ 1,000 ML IV ONE (17:15)
[2018-04-01 17:44] VITALS: BP 106/64; PULSE 81; RESP 18; O2SAT 98
--- NOTE | 2018-04-01 17:45 | PD ---
HPI Chief Complaint: Alcohol/Drug Intoxication Time Seen by Provider: 16:15 Travel History International Travel<30 days: No Contact w/Intl Traveler<30days: No Traveled to known affect area: No History of Present Illness HPI 57 YO M with PMH of chronic back pain, chronic alcoholism presents to the ED presents the ED requesting detox. Patient states his last drink was a few hours ago. He denies headaches, dizziness, chest pain, palpitations, shortness of breath, abdominal pain, nausea, vomiting, new injury to the back, weakness of the lower extremities. He states that he is acutely withdrawing. Patient has been in the ED 5 times in the last month. Last visit a few days ago. At that time he was observed in the hospital for 24 hours due to chronic back pain and discharge. PFSH Past Medical History Hx Anticoagulant Therapy: No Anemia: Yes Arthritis: No Asthma: No Autoimmune Disease: No Anxiety: Yes Depression: Yes Heart Rhythm Problems: No Cancer: No Cardiovascular Problems: Yes High Cholesterol: Yes Chemotherapy: No Chest Pain: Yes Congestive Heart Failure: No COPD: No Cerebrovascular Accident: No Diabetes: No Diminished Hearing: Yes Endocrine: No Gastrointestinal Disorders: Yes (GI BLEED) GERD: Yes Genitourinary: No Hiatal Hernia: Yes Hypertension: Yes Immune Disorder: No Implanted Vascular Access Dvce: No Kidney Stones: No Musculoskeletal: No Neurologic: Yes Psychiatric: Yes Reproductive: No Respiratory: Yes Immunizations Current: Yes Migraines: No Myocardial Infarction: Yes Radiation Therapy: No Renal Failure: No Seizures: Yes Sickle Cell Disease: No Sleep Apnea: No Thyroid Disease: No Ulcer: Yes (hx: bleeding ulcer - required blood transfusion ) Influenza Vaccination: No Past Surgical History Abdominal Surgery: No AICD: No Arteriovenous Shunt: No Cardiac Surgery: No Ear Surgery: No Endocrine Surgery: No Eye Surgery: No Genitourinary Surgery: No Gynecologic Surgery: No Hysterectomy: No Insulin Pump: No Joint Replacement: No Oral Surgery: Yes (wisdom teeth extraction ) Pacemaker: No Thoracic Surgery: No Other Surgery: Yes (HIATAL HERNIA 1979) Social History Alcohol Use: Yes (DAILY few beers) Tobacco Use: Yes (1ppd) Substance Use: Yes ("I stopped using a couple years back") Allergies-Medications (Allergen,Severity, Reaction): Coded Allergies: No Known Allergies (Verified Adverse Reaction, Unknown, 04/01/18) Reported Meds & Prescriptions Reported Meds & Active Scripts Active No Active Prescriptions or Reported Medications Review of Systems Except as stated in HPI: all other systems reviewed are Neg Physical Exam Narrative GENERAL: Well-nourished, well-developed white male no acute distress. SKIN: Focused skin assessment warm/dry. HEAD: Normocephalic. EYES: No scleral icterus. No injection or drainage. No nystagmus. NECK: Supple, trachea midline. No JVD or lymphadenopathy. CARDIOVASCULAR: Regular rate and rhythm without murmurs, gallops, or rubs. RESPIRATORY: Breath sounds equal bilaterally. No accessory muscle use. GASTROINTESTINAL: Abdomen soft, non-tender, nondistended. MUSCULOSKELETAL: No cyanosis, or edema. NEUROLOGICAL: Awake and alert. Cranial nerves II through XII intact. Motor and sensory grossly within normal limits. Five out of 5 muscle strength in all muscle groups. Normal speech. No tongue fasciculations. BACK: Nontender without obvious deformity. No CVA tenderness. Data Data Last Documented VS Vital Signs Date Time Temp Pulse Resp B/P (MAP) Pulse Ox O2 Delivery O2 Flow Rate FiO2 04/01/18 17:44 81 18 106/64 (78) 98 Room Air 04/01/18 15:25 98.7 Orders Orders ^ Insert Iv (04/01/18 17:02) Sodium Chlor 0.9% 1000 Ml Inj (Ns 1000 M (04/01/18 17:15) Ed Discharge Order (04/01/18 18:26) MDM Medical Decision Making Medical Screen Exam Complete: Yes Emergency Medical Condition: Yes Differential Diagnosis Malingering versus chronic alcoholism which is chronic back pain versus dehydration versus other Narrative Course 87-year-old male, well-known to the ED with 5 visits of this month alone presents the ED requesting detox. He states that he is acutely withdrawing and he holds both arms up in the air and quivers the right hand to indicate that he is having tremors. This resolves with distraction. There is no tongue fasciculations. No nystagmus. Patient's vitals are very stable. I reviewed lab work from his last visit. He is administered 1 L normal saline. He is speaking clearly and able to ambulate with a normal gait. He is stable, discharged and instructed to seek outpatient resources for detox. Diagnosis Primary Impression: Chronic back pain Qualified Codes: M54.5 - Low back pain; G89.29 - Other chronic pain Additional Impression: Malingering Referrals: [facility] Additional Instructions: Follow-up with Ankit Coe if you would like to quit drinking. Return to the ED for any urgent or emergent medical condition. Scripts No Active Prescriptions or Reported Meds Disposition: 01 DISCHARGE HOME Condition: Lexis Le Apr 01, 2018 17:45
== END 2018-04-01 20:30 | disposition home or self-care (01) ==
LOC: NEPD 15:12
DX: M54.5 Low back pain (principal); G89.29 Other chronic pain; Z76.5 Malingerer [conscious simulation]; E78.00 Pure hypercholesterolemia, unspecified; K21.9 Gastro-esophageal reflux disease without esophagitis; I10 Essential (primary) hypertension; I25.2 Old myocardial infarction; F17.200 Nicotine dependence, unspecified, uncomplicated; Z86.59 Personal history of other mental and behavioral disorders; Z86.79 Personal history of other diseases of the circulatory system; Z87.19 Personal history of other diseases of the digestive system; Z86.69 Personal history of other diseases of the nervous system and sense organs
CPT/HCPCS: 99284; J7030